=== PATIENT | male | born 1950 | race Caucasian/White ===

== ENCOUNTER 2020-02-04 21:27 | Emergency (ER) | payer MEDICARE, OTHER, SELFPAY ==
[2020-02-04 21:28] VITALS: BP 141/66; PULSE 74; RESP 16; TEMP 37.3; O2SAT 94; BMI 44.6
--- NOTE | 2020-02-04 22:09 | EKG12_ITS ---
Test Reason : SOB Blood Pressure : / mmHG Vent. Rate : 070 BPM Atrial Rate : 070 BPM P-R Int : 174 ms QRS Dur : 092 ms QT Int : 444 ms P-R-T Axes : 033 -03 041 degrees QTc Int : 479 ms Normal sinus rhythm Nonspecific ST abnormality Abnormal ECG Confirmed by DEXTER TRAYLOR, SHANNAN ([id number]), commercial production editor CLOVER GUAJARDO ([id number]) on 02/08/2020 10:21:37 AM Referred By: MIKY Confirmed By:MARIANNA RENTERIA MD
--- NOTE | 2020-02-04 22:12 | ED.VISSUMM ---
- ER Visit Summary Date of Service: 02/04/20 Chief Complaint: Cough and shortness of breath History of Present Illness: The patient is a 69 M who presents with cough and shortness of breath that has been getting worse over the past 5 days. Patient states he occasionally coughs up some sputum. Patient states mostly it is a nonproductive cough. Patient states family members have tested positive for Covid recently. Patient states his breathing is better whenever he leans forward. Patient states nothing makes it worse. Patient admits to a low-grade fever of 100 at home. Patient denies any chills. Patient denies any chest pain. Patient denies any nausea or vomiting. Patient denies any loss of taste or smell. Physical Examination: Vital signs are stable. Patient is afebrile. Patient is in no acute distress. Oral mucosa is pink and moist. Neck is supple. Trachea is midline. There is no JVD noted. Heart was regular rate and rhythm. Lungs are clear but diminished bilaterally. Abdomen is soft. Bowel sounds are normal. There is no tenderness. There is no rebound or guarding noted. Skin is warm dry. Cranial nerves II through XII are intact. There are no focal motor or sensory deficits noted. Extremities are intact. There is no calf tenderness or edema. Test Results: EKG was obtained. On my interpretation, there is normal sinus rhythm with a rate of 70. There are no acute ST or T wave changes. Portable 1 view chest x-ray was obtained. On my interpretation, there are bilateral patchy infiltrates. There is normal cardiac silhouette. Bony thorax is normal. Radiologist also interpreted the x-ray and agrees. CBC shows a mild anemia with a hemoglobin of 12.1 hematocrit 38.4. Comprehensive metabolic profile showed a hypokalemia of 2.9. Troponin was normal. Emergency Department Course and Treatment: Patient was given a dose of oral potassium here. Patient was referred for monoclonal antibody therapy. Patient was instructed to quarantine himself for the next 5 days. Patient was instructed to follow-up with his primary care physician in 3 to 5 days. Patient understood and was agreeable with the plan. All questions were answered. Disposition: Discharge home Impression: 1. COVID-19 pneumonia This note was generated with [employer] software. It may contain incorrect words, spelling, and punctuation that were not noted in review of the chart prior to signing ED Disposition - Plan for ED Patient: Disposition: Home or Assisted Living Diagnosis: Pneumonia due to COVID-19 virus Instructions: Coronavirus Disease 2019 (COVID-19): Overview, ED - COVID Monoclonal AB Infusion ... Referrals: Kenn Soto MD [Primary Care Provider] - 3-5 Days
--- NOTE | 2020-02-04 22:27 | RAD_ITS ---
COUGH, FEVER, SHORTNESS OF BREATH X 1 WK EXAMINATION/TECHNIQUE: XR Chest 1 View: COMPARISON: None FINDINGS: LINES/DEVICES: None. LUNGS: Patchy airspace opacities most marked in the right lung base but also seen within the left lung base No pneumothorax. MEDIASTINUM AND CARDIOVASCULAR STRUCTURES: Heart silhouette is enlarged Central airways and mediastinal contour are unremarkable. BONES AND SOFT TISSUES: Unremarkable. RAD/Chest 1 View (Portable) IMPRESSION: Patchy bilateral airspace opacities as discussed at 2316 Reported and signed by: Mara Patrick DO Electronically Signed: Mara Patrick DO at 23:15 EST Tel , Service support ,
[2020-02-04 22:44] LABS: Absolute Lymphocyte Count 0.84 X10^3/uL (0.83-4.51); Absolute Neutrophil Count 3.4 X10^3/uL (2.0-7.7); Basophil# 0.01 X10^3/uL; Basophil% 0.2 % (0-1); Eosinophil# 0.04 X10^3/uL; Eosinophils% 0.9 % (0-5); Hematocrit 38.4 % (40-54); Hemoglobin 12.1 g/dL (13.0-16.5); Lymphocyte # 0.84 X10^3/ul (4.0); Lymphocyte % 18.5 % (19-41); Mean Corp Hgb Conc 31.5 g/dL (32-36); Mean Corpuscular Hgb 28.5 pg (27.0-32.0); Mean Corpuscular Volume 90.4 fL (80-94); Mean Platelet Vol. 9.9 fl (6.2-12.0); Monocyte# 0.29 X10^3/uL; Monocyte% 6.4 % (0-10); NRBC Flagged by Analyzer 0 % (0-5); Neutrophil # 3.35 X10^3/uL (2.7-7.7); Neutrophil % 73.8 % (47-70); Platelet Count 156 K/mm3 (150-450); RBC Distribution Width CV 13.7 % (11.6-14.6); RBC Distribution Width SD 46.3 fl (35.1-43.9); Red Blood Count 4.25 M/mm3 (4.6-6.2); White Blood Count 4.5 K/mm3 (4.4-11.0)
[2020-02-04 22:53] VITALS: O2SAT 94
[2020-02-04 22:58] LABS: ALB/GLOB Ratio 0.8 RATIO (0.9-2.4); AST(SGOT) 22 U/L (15-37); Alanine Aminotransfer ALT/SGPT 31 U/L (16-61); Alkaline Phosphatase 106 U/L (45-117); Anion Gap 7 (5-15); BUN 20 mg/dL (7-18); BUN/Creat Ratio 19.8 RATIO (10-20); Calcium,Total 8.1 mg/dL (8.5-10.1); Chloride 107 mmol/L (98-107); Creatinine, Serum 1.01 mg/dL (0.70-1.30); EST Glomerular Filtration Rate 78 mL/min (>60); Est Glom Filt Rate - Afr Amer 94 mL/min (>60); Estimated Creatinine Clearance 74.55 ml/min; Globulin 3.9 g/dL (2.2-4.2); Glucose 102 mg/dL (74-106); Potassium 2.9 mmol/L (3.5-5.1); Protein, Total 6.9 g/dL (6.4-8.2); Sodium Level 143 mmol/L (136-145)
[2020-02-04 23:43] VITALS: BP 134/74; PULSE 70; RESP 18; O2SAT 93
== END 2020-02-04 23:45 | disposition home or self-care (01) ==
PROVIDERS: Emergency Provider Emergency Medicine; PCP Family Medicine
DX: U07.1 COVID-19 (principal); J12.89 Other viral pneumonia; D64.9 Anemia, unspecified; E66.9 Obesity, unspecified
CPT/HCPCS: 71045; 80053; 83605; 84484; 85025; 87040; 87426; 93005; 94640; 99285; A4216

== ENCOUNTER 2020-02-05 12:59 | Outpatient (CLI) | payer MEDICARE, OTHER, SELFPAY ==
[2020-02-05 13:15] VITALS: BP 160/61; PULSE 84; RESP 20; TEMP 36.7; O2SAT 96
[2020-02-05] MEDS: 0.9% Saline Lock 10 ML Syringe IV (13:23)
[2020-02-05 13:26] VITALS: BMI 46.0
[2020-02-05 14:09] VITALS: BP 130/66; PULSE 74; RESP 18; TEMP 37.4; O2SAT 97
[2020-02-05 14:40] VITALS: BP 132/63; PULSE 71; RESP 18; TEMP 37.2; O2SAT 98
[2020-02-05 15:39] VITALS: BP 138/63; PULSE 78; RESP 18; TEMP 36.9; O2SAT 95
== END 2020-02-05 15:40 | disposition home or self-care (01) ==
LOC: MS2OUT 13:01 → MS2 13:01
PROVIDERS: PCP Family Medicine; Referring Provider Nurse Practitioner Acute Care; Visit Provider Nurse Practitioner Acute Care
DX: U07.1 COVID-19 (principal)
CPT/HCPCS: 96365; J7040; J7050; M0239; Q0239; A4216

== ENCOUNTER 2020-05-23 13:35 | Outpatient (RCR) | payer MEDICARE, OTHER, SELFPAY | END 2020-07-16 23:59 | LOC: IMMUN 13:35 | PROVIDERS: PCP Family Medicine; Referring Provider Family Medicine; Visit Provider Family Medicine | DX: Z23 Encounter for immunization (principal) | CPT/HCPCS: 0001A; 0002A; 91300 ==

== ENCOUNTER 2022-05-20 10:30 | Outpatient (RCR) | payer MEDICARE, OTHER, SELFPAY ==
--- NOTE | 2022-03-23 09:58 | HP.PTEVAL_ITS ---
Patient's Visit Information CAMERON HIGGINS is a 71 year old M referred to Physical Therapy by Dr. Killian Soto MD with a diagnosis of R hip pain, LBP. Date of Evaluation: 03/23/22 Physical Therapist: JARED Hutchison - Visit Plan Frequency: 2x /Week Duration: 2 Months Plan: 2X/ week for 8 weeks for AT for R hip strength, core stability, endurance, balance and general mobility. Did discuss a rollator with the patient and he was not very interested in that. Give HEP if able to do on his off AT days for simple mat or kitchen sink exercises. - Subjective Pt reports that his B hips are bothering him and the R is worse. He wants to get a replacement and the Dr is not ready to do it and wants him to do water therapy instead. The Dr wants him to do some other therapy, Lifestyle Coaching Program which he has not signed up for yet. Prescribed Fit. Pt has had back and hip pain for years. 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 He has steps at home and alternates with one railing. He knows that he needs to lose weight. He feels that his legs are strong. He is able to sit to stand without using his arms. Pain is zero in sitting in R hip and then he walks and then the R leg gets weak so that it will not support him. He does not walk long distances. He has to stop and make sure he is taking his steps. - Pain R hip pain Pain Intensity (Out of 10): 0 L hip pain Pain Intensity (Out of 10): 0 Back Pain Pain Intensity (Out of 10): 0 Pain Intensity Range: 3 Comment: with walking... he feels like he will give out. - Objective Gait: walks back to the treatment room with small step length and each foot does not pass the other foot. Trunk AROM: flex 100%, Ext 25%, SB L 50%, SB R 75%. LE MMT: R hip flex 11.7 and L hip flex 12.3. R knee ext 23.4 and L 26..3. R knee flex 13.3 and L 14.6. R hip abd 13.9 and L 11.4. -SLUMP test B. Tight HS B. Patellar DTR B 0/3 - Balance/Special Test Scores Lower Extremity Functional Score: 48 - Goals Goal 1:: I HEP Goal Time Frame: 6-8 Weeks Goal 2:: Be able to walk back to EVAL room with 50% less SOB and with his legs not feeling like they will give out on him Goal Time Frame: 6-8 Weeks Goal 3:: Increase LE strength (at time of the eval: LE MMT: R hip flex 11.7 and L hip flex 12.3. R knee ext 23.4 and L 26..3. R knee flex 13.3 and L 14.6. R hip abd 13.9 and L 11.4) Goal Time Frame: 6-8 Weeks - Rehabilitation Potential Rehabilitation Potential: Good - Anticipated Interventions Patient/Client Instruction: Educate patient on: Condition, Plan of Care For the Purpose of:: To decrease pain, To increase ROM, To improve nutrient delivery to tissue, To improve muscle performance and motor function, To improve ability to perform ADL's, To increase tolerance to activity/condition/position, To improve performance and independence with ADL's, To decrease level of supervision to perform tasks, To improve ability of physical actions for home/community/work/leisure, To improve gait and locomotor functions, To improve health of tissue, To decrease soft tissue restriction, To increase flexibility/ROM, To improve endurance, To improve balance, To improve safety with gait Therapeutic Exercise to Include: Strength training, Endurance training, Postural training, Flexibilty training, Gait and locomotor training, Active ROM, Dynamic Lumbar Stabilization For the Purpose of:: To decrease pain, To increase ROM, To improve nutrient delivery to tissue, To improve muscle performance and motor function, To improve ability to perform ADL's, To increase tolerance to activity/condition/position, To improve performance and independence with ADL's, To decrease level of supervision to perform tasks, To improve ability of physical actions for home/community/work/leisure, To improve gait and locomotor functions, To improve health of tissue, To decrease soft tissue restriction, To increase flexibility/ROM, To improve endurance, To improve balance Functional Training to Include: Gait training For the Purpose of:: To improve gait and locomotor functions, To improve safety with gait Thank you for the opportunity to evaluate your patient. For Medicare and Medicare HMO plans, please review the plan of care and approve it. It will need to be FAXED BACK to us at [phone] for Medicare purposes. For Medicare only, by signing this I certify the plan of care. Please let me know if there are questions or concerns regarding this plan of care. Physician Signature: Date:
--- NOTE | 2022-04-20 09:59 | HP.PTREVAL ---
Dr. Killian Soto MD, It has been my pleasure to treat CAMERON HIGGINS over the last 8 visits for R hip pain, LBP. Please see the progress note below for an update on the physical therapy plan of care! Subjective: Pt had some confusion and went back to the pool instead of re check. Pt feels that the water was worth while. The water is helping his pain. He meets with Dr soto on and wants to continue with PT. He is able to do a lot now with soreness but not like the pain that he had. He stretches at home when his back is tight. Objective/Function: R hip flex 12 and L hip flex 13.3. R knee ext 23.4 and L 26..3. R knee flex 15.3 and L 14.8. R hip abd 13.9 and L 11.4...same Plan Plan: continue...2X/ week for 4 weeks in AT and then a recheck. *f/u with new HEP tasks. *Add BWD walking, and rest of DLP tasks next visit. *f/u with pt's request for heel lift with RLE shorter. 2X/ week for 8 weeks for AT for R hip strength, core stability, endurance, balance and general mobility. Did discuss a rollator with the patient and he was not very interested in that. Give HEP if able to do on his off AT days for simple mat or kitchen sink exercises. Balance/Gait/Functional tests - Balance/Special Test Scores Lower Extremity Functional Score: 49 Goals Goal 1:: I HEP Goal Time Frame: 6-8 Weeks Goal 2:: Be able to walk back to [facility] room with 50% less SOB and with his legs not feeling like they will give out on him Goal Time Frame: 6-8 Weeks Goal Progress: Progressing Goal 3:: Increase LE strength (at time of the eval: LE MMT: R hip flex 11.7 and L hip flex 12.3. R knee ext 23.4 and L 26..3. R knee flex 13.3 and L 14.6. R hip abd 13.9 and L 11.4) Goal Time Frame: 6-8 Weeks Goal Progress: Progressing Anticipated Interventions Patient/Client Instruction: Educate patient on: Condition, Plan of Care For the Purpose of:: To decrease pain, To increase ROM, To improve nutrient delivery to tissue, To improve muscle performance and motor function, To improve ability to perform ADL's, To increase tolerance to activity/condition/position, To improve performance and independence with ADL's, To decrease level of supervision to perform tasks, To improve ability of physical actions for home/community/work/leisure, To improve gait and locomotor functions, To improve health of tissue, To decrease soft tissue restriction, To increase flexibility/ROM, To improve endurance, To improve balance, To improve safety with gait Therapeutic Exercise to Include: Strength training, Endurance training, Postural training, Flexibilty training, Gait and locomotor training, Active ROM, Dynamic Lumbar Stabilization For the Purpose of:: To decrease pain, To increase ROM, To improve nutrient delivery to tissue, To improve muscle performance and motor function, To improve ability to perform ADL's, To increase tolerance to activity/condition/position, To improve performance and independence with ADL's, To decrease level of supervision to perform tasks, To improve ability of physical actions for home/community/work/leisure, To improve gait and locomotor functions, To improve health of tissue, To decrease soft tissue restriction, To increase flexibility/ROM, To improve endurance, To improve balance Functional Training to Include: Gait training For the Purpose of:: To improve gait and locomotor functions, To improve safety with gait Please do not hesitate to contact me at [phone] by phone or if you have questions or concerns regarding this new plan of care! Sincerely, JARED Hutchison
--- NOTE | 2022-05-20 11:08 | HP.PTDCSUM ---
It has been my pleasure to treat CAMERON HIGGINS referred by Dr. Killian Soto MD, with the diagnosis of R hip pain, LBP for a total of 14 visit(s). Discharge Date: 05/20/22 Please see the following information for a summary of their discharge status. Subjective: Pt reports that the back is better by a lot. He had a shot in his hip and that has helped. He is walking better. He is ready to move on. R hip pain Pain Intensity (Out of 10): 2 L hip pain Pain Intensity (Out of 10): 2 Back Pain Pain Intensity (Out of 10): 2 % Improvement: 90 Objective/Function: Pt found lunges difficult. R hip flex 17.2 and L hip flex 14.2. R knee ext 24.2 and L 26.1. R knee flex 19.1 and L 16.8 Goal 1:: I HEP Goal Progress: Progressing Goal 2:: Be able to walk back to EVAL room with 50% less SOB and with his legs not feeling like they will give out on him Goal Progress: Goal Met Goal 3:: Increase LE strength (at time of the eval: LE MMT: R hip flex 11.7 and L hip flex 12.3. R knee ext 23.4 and L 26..3. R knee flex 13.3 and L 14.6. R hip abd 13.9 and L 11.4) Goal Progress: Goal Met Plan: DC PT as pt feels much better and has a lot of things he has to do this summer. Discharge Comments: DC PT If there are questions or concerns regarding this patient's physical therapy, please feel free to call me at [phone]. Thank you for the referral of this patient. Sincerely, Anay Colvin, MPT Balance/Gait/Functional tests - Balance/Special Test Scores Lower Extremity Functional Score: 52
== END 2022-05-20 19:00 | disposition home or self-care (01) ==
LOC: PT 10:30
PROVIDERS: PCP Family Medicine; Referring Provider Specialist; Visit Provider Specialist
DX: M25.551 Pain in right hip (principal); M54.59 Other low back pain; R26.89 Other abnormalities of gait and mobility
CPT/HCPCS: 97113; 97161; 97530

== ENCOUNTER → 2024-05-04 | Outpatient (CLI) | payer MEDICARE, OTHER, SELFPAY ==
--- NOTE | 2024-05-04 09:27 | ECHOD_ITS ---
Reason For Study Reason For Study: CAD/ASHD Procedure This was a 2D Doppler, Color Flow transthoracic echocardiogram. Myocardial strain analysis was performed in this exam to aid in the assessment of cardiac function. Exam performed in department. Left Ventricle Normal LV size. Moderate concentric left ventricular hypertrophy. Left ventricular systolic function is normal. The left ventricular ejection fraction is 55 %. Stage 1 diastolic dysfunction. No regional wall motion abnormalities noted. Right Ventricle Normal RV size. Normal systolic function. Atria Normal left atrium. Normal right atrium. Mitral Valve Normal mitral valve. Tricuspid Valve Normal tricuspid valve. Aortic Valve Trisinus/trileaflet aortic valve. Pulmonic Valve Normal pulmonic valve. Great Vessels Normal aortic root. The pulmonary artery is normal size. Inferior vena cava collapse with respiration. Pericardium/Pleural No pericardial effusion. MMode/2D Measurements & Calculations LVIDd: 5.8 cm IVSd: 1.3 cm LVOT diam: 2.1 cm LVIDs: 4.2 cm LVPWd: 1.5 cm LVOT area: 3.5 cm2 FS: 26.9 % Ao root diam: 3.6 cm LAV(MOD-bp): 61.4 ml LVAd ap4: 33.8 cm2 LAV(MOD-bp) Indexed: 24.5 ml/m2 LVLd ap4: 9.2 cm LAV(MOD-sp2): 64.0 ml EDV(MOD-sp4): 110.7 ml LAV(MOD-sp4): 55.0 ml EDV(sp4-el): 105.2 ml LVAs ap4: 23.2 cm2 LVLs ap4: 8.4 cm ESV(MOD-sp4): 59.4 ml ESV(sp4-el): 54.5 ml EF(MOD-sp4): 46.3 % EF(sp4-el): 48.2 % SV(MOD-sp4): 51.3 ml SV(sp4-el): 50.7 ml LA A4 area: 18.4 cm2 SI(MOD-sp4): 20.5 ml/m2 LA dimension(2D): 3.5 cm RA A4 area: 15.2 cm2 Time Measurements MV dec time: 0.20 sec Doppler Measurements & Calculations MV E max nathen: 46.2 cm/sec Lat Peak E' Nathen: 6.1 cm/sec Med Peak E' Nathen: 5.1 cm/sec MV A max nathen: 78.1 cm/sec E/E' lat: 7.5 E/E' med: 9.1 MV E/A: 0.59 MV V2 max: 101.3 cm/sec Ao V2 max: 153.6 cm/sec MV max P.1 mmHg MV dec slope: 233.9 cm/sec2 Ao max P.4 mmHg MV V2 mean: 58.1 cm/sec Ao V2 mean: 108.7 cm/sec MV mean P.6 mmHg Ao mean P.3 mmHg MV V2 VTI: 24.6 cm Ao V2 VTI: 32.0 cm AV (velocity ratio): 0.75 MVA(VTI): 3.4 cm2 MERY(I,D): 2.6 cm2 MERY(V,D): 2.2 cm2 LV V1 max: 98.7 cm/sec SV(LVOT): 83.7 ml PA V2 max: 134.2 cm/sec LV V1 max P.9 mmHg PA V2 mean: 85.7 cm/sec LV V1 mean P.1 mmHg LV V1 mean: 69.0 cm/sec LV V1 VTI: 24.0 cm ECHO/Echo Complete Interpretation Summary Normal LV size. Left ventricular systolic function is normal. The left ventricular ejection fraction is 55 %. Moderate concentric left ventricular hypertrophy. Stage 1 diastolic dysfunction. The global longitudinal strain is moderately abnormal. The global longitudinal strain = -13.2% (abnormal). Ordering Physician: Cas Olmedo Referring Physician: Cas Olmedo Performed By: Linda Taveras RCS
[2024-05-04 11:22] LABS: Absolute Lymphocyte Count 1.13 X10^3/uL (0.83-4.51); Absolute Neutrophil Count 4.3 X10^3/uL (2.0-7.7); Basophil# 0.05 X10^3/uL; Basophil% 0.8 % (0-1); Eosinophils% 1.6 % (0-5); Hematocrit 42.2 % (40-54); Hemoglobin 14.1 g/dL (13.0-16.5); Lymphocyte # 1.13 X10^3/ul (0.83-4.51); Lymphocyte % 18.1 % (19-41); Mean Corp Hgb Conc 33.4 g/dL (32-36); Mean Corpuscular Volume 92.7 fL (80-94); Mean Platelet Vol. 9.8 fl (6.2-12.0); Monocyte# 0.59 X10^3/uL; Monocyte% 9.5 % (0-10); NRBC Flagged by Analyzer 0 % (0-5); Neutrophil # 4.32 X10^3/uL (2.7-7.7); Neutrophil % 69.4 % (47-70); Platelet Count 192 K/mm3 (150-450); RBC Distribution Width CV 13.5 % (11.6-14.6); RBC Distribution Width SD 46.1 fl (35.1-43.9); Red Blood Count 4.55 M/mm3 (4.6-6.2); White Blood Count 6.2 K/mm3 (4.4-11.0)
[2024-05-04 12:37] LABS: Anion Gap 11 (5-15); BUN 16 mg/dL (4-19); BUN/Creat Ratio 15.2 RATIO (10-20); Carbon Dioxide 29.3 mmol/L (21.0-32.0); Chloride 103 mmol/L (98-108); Creatinine, Serum 1.02 mg/dL (0.70-1.20); EST Glomerular Filtration Rate 78 (>60); Glucose 106 mg/dL (70-99); Potassium 3.3 mmol/L (3.3-5.1); Sodium Level 143 mmol/L (133-145)
== END | disposition home or self-care (01) ==
PROVIDERS: PCP Family Medicine; Referring Provider Internal Medicine Cardiovascular Disease; Visit Provider Internal Medicine Cardiovascular Disease
DX: I25.10 Atherosclerotic heart disease of native coronary artery without angina pectoris (principal); E66.01 Morbid (severe) obesity due to excess calories; I10 Essential (primary) hypertension; E78.5 Hyperlipidemia, unspecified; R42 Dizziness and giddiness
CPT/HCPCS: 36415; 80048; 85025; 93306

== ENCOUNTER 2024-05-08 08:42 | Day surgery (SDC) | payer MEDICARE, OTHER, SELFPAY ==
[2024-05-05 08:46] VITALS: BMI 42.5
--- NOTE | 2024-05-08 11:23 | CL.D_ITS ---
Patient Name: CAMERON HIGGINS Study Date: 05/08/2024 Performing: Cas Olmedo MD Ht: 71 inches 180.34 cm : 1950 Wt: 304.5 lbs 138.12 kg Age: 73 Gender: male BSA: 2.52 PROCEDURE(S) PERFORMED [id number])LHC/COR/LV CLINICAL PROFILE AND INDICATIONS Indications: Suspected CAD Heart Failure: None Stress/Imaging Coronary Calcium Score: Yes Calcium Score: 6000Calcium Score: 6000 CAD Presentations: No Sxs, no angina. CONCLUSIONS Severe three-vessel calcification and severe two-vessel disease present with preserved ejection fraction RECOMMENDATIONS Will recommend coronary artery bypass graft surgery. DESCRIPTION OF PROCEDURE The patient arrived to the procedure lab. The risks and benefits of the procedure as well as a full description of our services here and current unavailability of surgical backup were fully explained to the patient and/or their significant other prior to the catheterization. The Timeout was completed, verifying the correct patient and procedure. The patient's procedural site was prepped and draped in the usual fashion. Local anesthetic was given subcutaneously to left radial region with Lidocaine 2%. Using a modified Seldinger technique, arterial access was obtained via the right radial artery, a 6Fr sheath was inserted. Right Coronary Artery selective angiography was then performed in multiple views using a 5 Fr. JR 5 catheter. Left Coronary Artery selective angiography was performed in multiple views using a 6 Fr. JL4 catheter.The arterial sheath was pulled and a TR Band was applied for hemostasis CORONARY ANGIOGRAPHY DOMINANCE: Right Dominant LEFT HEART ASSESSMENT Left Ventricular Ejection Fraction: by Echo 55 % Normal LV wall motion Normal Left Ventricular systolic function LEFT MAIN: Moderate calcification, Mild luminal irregularities less than 30% LEFT ANTERIOR DESCENDING ARTERY: This vessel is totally occluded in the proximal segment after a first diagonal branch which has moderately severe disease. Collateral filling from right to left of the left anterior descending artery is seen. CIRCUMFLEX ARTERY: Moderate luminal irregularities up to 50% RIGHT CORONARY ARTERY: Dominant calcified vessel with mid segment 95% eccentric occlusion. Mild to moderate distal luminal irregularities present. AORTIC ROOT: Dilated COMPLICATIONS No Complications PROCEDURE MEDICATIONS Versed 1 mg IV Fentanyl 50 mcg IV Versed 1 mg IV Fentanyl 25 mcg IV Oxygen: 2 L/min via nasal cannula IV Bolus: 100 with 10mEq kcl ml total 05/08/2024 09:58:49 SUMMARY OF HEMODYNAMIC DATA Time AIR REST ECG 09:01:15 AO 186/91 (128) SA 10:33:37 Signed By Cas Olmedo MD On 05/08/2024 11:23:00 Cas Olmedo MD
== END 2024-05-08 12:50 | disposition home or self-care (01) ==
PROVIDERS: PCP Family Medicine; Referring Provider Internal Medicine Cardiovascular Disease; Visit Provider Internal Medicine Cardiovascular Disease
DX: I25.10 Atherosclerotic heart disease of native coronary artery without angina pectoris (principal); E66.01 Morbid (severe) obesity due to excess calories; I10 Essential (primary) hypertension; R06.02 Shortness of breath; E78.5 Hyperlipidemia, unspecified; R60.0 Localized edema; R93.1 Abnormal findings on diagnostic imaging of heart and coronary circulation; Z79.82 Long term (current) use of aspirin; Z79.899 Other long term (current) drug therapy; Z85.46 Personal history of malignant neoplasm of prostate; Z90.79 Acquired absence of other genital organ(s)
CPT/HCPCS: 93454; 99152; 99153; Q9967; C1769; C1894

== ENCOUNTER 2024-05-25 14:57 | Inpatient (IN) | payer MEDICARE, OTHER, SELFPAY ==
[2024-05-25 15:36] VITALS: BP 155/84; PULSE 78; RESP 20; TEMP 36.6; O2SAT 98; BMI 44.9
[2024-05-25 15:40] VITALS: RESP 20; O2SAT 98
[2024-05-25 16:11] VITALS: BP 122/66; BP 147/78; BP 147/80; PULSE 76; PULSE 84; PULSE 85
--- NOTE | 2024-05-25 16:32 | PCM.HP.STD ---
[facility] - General General Date of Admission: 05/25/24 Date of Service: 05/25/24 Chief Complaint: debility due to CABG/CAD. HPI Narrative CAMERON HIGGINS, is a 73 YO M with a PMH of HTN, prostate CA (S/P prostatectomy), HTN, HLD, CAD, osteoarthritis, prediabetes (recent hemoglobin A1c was 6%), insomnia and morbid obesity. He underwent a cardiac cath by Dr. Olmedo on 05/08/24 for a markedly elevated calcium score. The catheterization showed severe triple-vessel calcification and severe two-vessel coronary artery disease with a preserved ejection fraction. The left anterior descending was totally occluded in the proximal segment after first diagonal branch which had moderately severe disease. The left main had mild luminal irregularities less than 30%. The circumflex artery had luminal irregularities with up to 50% stenosis and the RCA had a 95% mid segment occlusion. Echocardiogram showed moderate concentric left ventricular hypertrophy with normal left ventricular systolic function. There was stage I diastolic dysfunction with no regional wall motion abnormalities. The atria were of normal size and the right ventricle was normal with normal systolic function. There was no significant valvular heart disease. He was referred to cardiothoracic surgery. On 05/16/2024 he had a CABG x 3 vessels with BELL to LAD, saphenous vein graft to the diagonal and saphenous vein graft to PDA. He also had an ascending aorta replacement with a 30 mm dacryon woven graft. Postop complications included delirium and acute blood loss anemia. He was transfused with 1 unit of packed red blood cells for hemoglobin of 6.9 and it came up to 7.5. He also experienced acute renal failure with creatinine peaking at 1.61. He had a [place] catheter while at [facility]. He also had atrial fibrillation postoperatively which resolved prior to discharge. On report from the previous hospital nursing was told he sundown's. He was transferred to the acute inpatient rehab unit at [facility] on 05/25/2024 for 3 hours of therapy daily to restore function/independence at or near his level prior to the surgery. He was living alone prior to surgery. Using a cane for ambulation at times. Independent with ADL's. Family tells me that he was getting confused at times even prior to surgery. He has trouble sleeping at night. Naps during the day. Falls asleep watching TV and can fall asleep riding in a car. Denies restless leg. He has been told he snores. 4 years ago and no one has ever told him that he stops breathing when sleeping. Has never had a sleep study. Has memory loss. 1. Do you snore loudly? Y 2. Do you often feel tired, fatigued or sleepy during the day? Y 3. Has anyone ever observed you stop breathing during sleep? N 4. Do you have (or are you being treated for) HTN? Y BMI 45 AGE 73 Neck circumference 44 cm Gender M Total 6 wt prior to CABG 304......now 313. [facility] Medical History (Updated 05/26/24 @ 14:[address] Alcye Whelan, DO) Elevated coronary artery calcium score Osteoarthritis History of prostate cancer Essential (primary) hypertension Hyperlipidemia CAD (coronary artery disease) Obesity, morbid, BMI 40.0-49.9 Home Medications ?Medication ?Instructions ?Recorded ?Last Taken ?Type aspirin 81 mg tablet,delayed 81 mg PO DAILY heart health 05/02/24 05/25/24 History release (Adult Aspirin Regimen) atorvastatin 40 mg tablet 80 mg PO QHS cholesterol 05/02/24 05/24/24 History multivitamin 1 tab PO QDAY supplement 05/02/24 Unknown History doxazosin 8 mg tablet 8 mg PO BID sleep 05/05/24 Unknown History Held on 05/25/24. Instructions: Ordered acetaminophen 500 mg capsule 1,000 mg PO Q8H pain 05/25/24 05/25/24 History amiodarone 400 mg tablet 400 mg PO BID BP 05/25/24 05/25/24 History amlodipine 10 mg tablet 5 mg PO QDAY BP 05/25/24 05/25/24 History ezetimibe 10 mg tablet (Zetia) 10 mg PO QHS cholesterol 05/25/24 05/24/24 History furosemide 40 mg tablet (Lasix) 40 mg PO DAILY Fluid retention 05/25/24 05/25/24 History metoprolol succinate 50 mg 50 mg PO BID BP 05/25/24 05/25/24 History tablet,extended release 24 hr (Toprol XL) oxycodone 5 mg tablet 5 mg PO Q6H PRN pain 7-10 05/25/24 Unknown History Allergy/AdvReac Type Severity Reaction Status Date / Time No Known Allergies Allergy Verified 05/04/24 08:37 Family History Other CVA (cerebral vascular accident) Surgical History (Updated 05/26/24 @ 13:[address] Alyce Whelan DO) History of aortic aneurysm repair S/P CABG x 2 Hx of prostatectomy Hx of appendectomy History of hip replacement (~03/2023) Social History Smoking Status: Never smoker Vital Signs Vital Signs Vital Signs: 05/25/24 15:36 05/25/24 15:40 05/25/24 16:11 Temperature 97.8 F Temperature Source Oral Pulse Rate 78 Pulse Rate [Lying] 76 Pulse Rate [Sitting (for 1 minute prior to obtaining)] 85 Pulse Rate [Standing (for 1 minute prior to obtaining)] 84 Respiratory Rate 20 H 20 H Respiratory Effort Short of Breath Labored Respiratory Depth Normal Respiratory Pattern Normal Blood Pressure 155/84 H Blood Pressure [Lying] 147/78 H Blood Pressure [Sitting (for 1 minute prior to obtaining)] 147/80 H Blood Pressure [Standing (for 1 minute prior to obtaining)] 122/66 H Blood Pressure Mean 107 Blood Pressure Mean [Lying] 101 Blood Pressure Mean [Sitting (for 1 minute prior to obtaining)] 102 Blood Pressure Mean [Standing (for 1 minute prior to obtaining)] 84 Blood Pressure Source Monitor Blood Pressure Position Semi-Fowlers Blood Pressure Location Left Arm Pulse Ox 98 98 Oxygen Delivery Method Nasal Cannula Nasal Cannula Oxygen Flow Rate (L/min) 1 1 Weight Weight: 313 lb 4.8 oz Body Mass Index (BMI) 44.9 Physical Exam Const no apparent distress Constitutional Narrative: Drowsy. Speech is a little slurred. Has been getting confused in the evenings per family. Was delirious post op and required sedation. General Appearance: cooperative Nutritional Appearance: morbidly obese HEENT head/scalp atraumatic HEENT Narrative: He has a small hematoma of the R neck and ecchymosis. Eyes PERRL, EOMs intact bilaterally, conjunctivae normal and no scleral icterus Eyes Narrative: No discharge from the eyes Neck supple and no carotid bruits General: trachea midline Chest Chest: symmetrical chest wall rise Resp Resp Narrative: Tachypneic. Mild conversational dyspnea, use of accessory muscles. Breath sounds are diminished throughout but much more diminished in the lower lung galvin. He has egophony in the right base. No wheezing and no crackles. He is complaining of a cough and is having trouble expectorating his sputum. Effort and Inspection: symmetric chest movement Cardio regular rate, regular rhythm, S1 normal heart sound, S2 normal heart sound, no murmurs, no rub and no gallops Cardio Narrative: Distant heart sounds. No ectopy GI GI Narrative: obese. Increased tympany. No guarding with palpation. BS's present. Having regular BM's. Last BM was yesterday. No masses. Soft. Extremity Extremity Narrative: pitting edema of both LE's......up to the posterior thighs. Ecchymosis of the Left groin and the left medial thigh. Small laceration to the medial upper calf on the left. Skin General Skin Exam: no breakdown Neuro CN's II-XII intact bilaterally Neuro Narrative: Drowsy, seems somewhat confused. Family confirms this. Has been confused at home even prior to the recent surgery. Psych cooperative; Negative for denies hallucinations Appearance: appropriate Attitude: calm Activity / Motor Behavior: appropriate eye contact Results Lab / Micro Data 05/26/24 06:20 05/26/24 06:20 Assessment & Plan Assessment/Plan (1) Debility: (2) S/P CABG x 2: (3) History of aortic aneurysm repair: (4) Acute respiratory failure with hypoxia: (5) Orthostatic hypotension: (6) Essential (primary) hypertension: (7) Hyperlipidemia: QUALIFIERS: Hyperlipidemia type: unspecified Qualified Code(s): E78.5 - Hyperlipidemia, unspecified (8) CAD (coronary artery disease): QUALIFIERS: Coronary Disease-Associated Artery/Lesion type: [place] artery [place] vs. transplanted heart: [place] heart Associated angina: without angina Qualified Code(s): I25.10 - Atherosclerotic heart disease of [place] coronary artery without angina pectoris (9) Obesity, morbid, BMI 40.0-49.9: (10) Acute blood loss as cause of postoperative anemia: (11) Sleep-disordered breathing: PLAN: Plan PLAN PT for gait stability OT for ADL's ST for evaluation-for cognition Analgesics as needed Bowel protocol Fall precautions Assess for Anxiety/Depression GI prophylaxis -not necessary at this time. No history of peptic ulcer disease, no nausea, no vomiting, no epigastric pain. Denies reflux/heartburn. DVT prophylaxis with heparin 5000 units SQ every 12 hours Follow up with PCP, cardiology, cardiothoracic surgery following DC from [facility] Rehab AM lab including CMP, CBC, Mag and Phos Doxepin 10 mg p.o. nightly for insomnia PA and lateral chest x-ray tonight Will do an overnight trending pulse ox if we are able to get him off oxygen supplementation. His STOP-BANG score is 6. Recommend a formal sleep study. TSH and B12 to rule out treatable causes of memory loss -suspect his problems with memory and confusion may be related to untreated sleep apnea with sleep deprivation chronically Check a hemoglobin A1c Yunior 1 packet twice daily to promote wound healing. Forest tells me that he took Wegovy and lost 80 pounds. He had severe constipation with Wegovy. Insurance did not cover. He wants to lose weight so that he can have a hip replacement with Dr. Kenn Soto. Not currently on Wegovy but would take it again if his insurance will pay for it now that he has been diagnosed with coronary disease and had CABG. Charges/Coding Visit Charges Inpatient E&M: 78531 Init Hosp L3
[2024-05-25 17:02] LABS: Bedside Glucose 104 mg/dL (74-106)
--- NOTE | 2024-05-25 17:40 | EKG12_ITS ---
Test Reason : DYSRHYTHMIA Blood Pressure : */* mmHG Vent. Rate : 85 BPM Atrial Rate : 85 BPM P-R Int : 196 ms QRS Dur : 92 ms QT Int : 400 ms P-R-T Axes : 18 27 87 degrees QTcB Int : 476 ms Sinus rhythm with marked sinus arrhythmia Nonspecific ST and T wave abnormality Abnormal ECG When compared with ECG of 04-Feb-2020 22:24, No significant change was found Confirmed by JULI TRAYLOR, CICI ([id number]), editor publications CLOVER GUAJARDO ([id number]) on 05/29/2024 10:38:26 AM Referred By: Confirmed By: CICI BUSTOS MD
--- NOTE | 2024-05-25 18:06 | RAD_ITS ---
PROCEDURE: CHEST PA AND LATERAL 05/25/2024 REASON FOR EXAM: COUGH TECHNIQUE: Frontal and lateral views of the chest. FINDINGS: Hardware: Sternotomy wires are present. Heart: Heart size is moderately enlarged. Mediastinum: The thoracic aorta is tortuous and calcified. Lungs: Small bilateral pleural effusions with bibasilar atelectasis. Bones: The bones are unremarkable. RAD/Chest PA and Lateral IMPRESSION: Small bilateral pleural effusions with bibasilar atelectasis. Reading Location: [id number]
[2024-05-25 22:00] VITALS: RESP 18
[2024-05-25] MEDS: Ezetimibe 10 MG Tablet PO (22:12)
[2024-05-25] MEDS: Senna/Docusate Sodium 1 Tablet 2 TABLET PO (22:13)
[2024-05-25] MEDS: Acetaminophen 500 MG Tablet 1000 MG PO (22:13)
[2024-05-25] MEDS: Amiodarone 200 MG Tablet 400 MG PO (22:13)
[2024-05-25] MEDS: Heparin Injection (Vial) 5,000 UNIT/ML VIAL 5000 UNIT SC (22:13)
[2024-05-25] MEDS: Doxepin Hydrochloride 10 MG Capsule PO (22:13)
[2024-05-25] MEDS: Atorvastatin Calcium 80 MG Tablet PO (22:13)
[2024-05-25 22:18] VITALS: BP 164/83; PULSE 78; RESP 18; TEMP 36.8; O2SAT 93
[2024-05-25 22:19] VITALS: PULSE 78
[2024-05-25] MEDS: Metoprolol(XL)Succ 50 MG Tablet PO (22:19)
[2024-05-25 23:07] LABS: Bedside Glucose 109 mg/dL (74-106)
[2024-05-26 05:50] VITALS: BP 135/90; PULSE 107; RESP 18; TEMP 36.3; O2SAT 94; BMI 44.6
[2024-05-26] MEDS: Acetaminophen 500 MG Tablet 1000 MG PO ×3 (06:10→21:12)
[2024-05-26 06:41] LABS: Absolute Lymphocyte Count 1.17 X10^3/uL (0.83-4.51); Absolute Neutrophil Count 8.2 X10^3/uL (2.0-7.7); Basophil# 0.05 X10^3/uL; Basophil% 0.5 % (0-1); Eosinophil# 0.21 X10^3/uL; Hematocrit 29.4 % (40-54); Hemoglobin 9.3 g/dL (13.0-16.5); Lymphocyte # 1.17 X10^3/ul (0.83-4.51); Lymphocyte % 11.4 % (19-41); Mean Corp Hgb Conc 31.6 g/dL (32-36); Mean Corpuscular Volume 94.8 fL (80-94); Mean Platelet Vol. 8.8 fl (6.2-12.0); Monocyte# 0.62 X10^3/uL; NRBC Flagged by Analyzer 0 % (0-5); Neutrophil # 8.16 X10^3/uL (2.7-7.7); Neutrophil % 79.3 % (47-70); Platelet Count 418 K/mm3 (150-450); RBC Distribution Width SD 51.5 fl (35.1-43.9); White Blood Count 10.3 K/mm3 (4.4-11.0)
[2024-05-26 07:10] LABS: ALB/GLOB Ratio 1.1 RATIO (0.9-2.4); AST(SGOT) 55 U/L (<=37); Alanine Aminotransfer ALT/SGPT 65 U/L (<=46); Albumin, Serum 3.2 g/dL (3.4-4.8); Alkaline Phosphatase 89 U/L (40-129); Anion Gap 10 (5-15); BUN 27 mg/dL (4-19); Calcium,Total 8.9 mg/dL (7.6-11.0); Carbon Dioxide 26.3 mmol/L (21.0-32.0); Chloride 106 mmol/L (98-108); Creatinine, Serum 1.28 mg/dL (0.70-1.20); EST Glomerular Filtration Rate 59 (>60); Estimated Creatinine Clearance 74.02 ml/min (50-250); Glucose 112 mg/dL (70-99); Magnesium 2.5 mg/dL (1.5-2.2); Phosphorus 3.4 mg/dL (2.7-4.5); Potassium 3.8 mmol/L (3.3-5.1); Protein, Total 6.2 g/dL (5.9-8.4); Sodium Level 142 mmol/L (133-145); Total Bilirubin 0.67 mg/dL (0.00-1.30)
[2024-05-26 07:28] LABS: Bedside Glucose 103 mg/dL (74-106)
[2024-05-26 08:19] VITALS: BP 134/91; PULSE 106
[2024-05-26] MEDS: Metoprolol(XL)Succ 50 MG Tablet PO ×2 (08:19→21:11)
[2024-05-26] MEDS: Amiodarone 200 MG Tablet 400 MG PO ×2 (08:20→21:10)
[2024-05-26] MEDS: amLODIPine 5 MG Tablet PO (08:20)
[2024-05-26] MEDS: Furosemide 40 MG Tablet PO (08:20)
[2024-05-26] MEDS: Senna/Docusate Sodium 1 Tablet 2 TABLET PO ×2 (08:20→21:11)
[2024-05-26] MEDS: Aspirin E.C. 81 MG Tablet PO (08:20)
[2024-05-26] MEDS: Multivitamins,Therapeutic Tablet 1 TABLET PO (08:20)
[2024-05-26] MEDS: Heparin Injection (Vial) 5,000 UNIT/ML VIAL 5000 UNIT SC (08:21)
[2024-05-26 09:15] VITALS: RESP 18
[2024-05-26 11:33] LABS: Bedside Glucose 100 mg/dL (74-106)
--- NOTE | 2024-05-26 14:10 | CT_ITS ---
PROCEDURE: CTA CHEST W/WO CONTRAST 05/26/2024 REASON FOR EXAM: HYPOXEMIA/COUGH/RECENT CABG/ABD PA AND LAT TECHNIQUE: CTA axial imaging of the chest with intravenous contrast. Coronal and Sagittal reconstruction series were provided. 3D, 3D post processing, 3D reconstructions, Maximum intensity projection (MIPs) Volume rendering and Shaded surface rendering was provided. PATIENT PREPARATION: Per protocol One or more dose reduction techniques were used (e.g., Automated exposure control, adjustment of the mA and/or kV according to patient size, use of iterative reconstruction technique). CONTRAST: Isovue 3 7 VOLUME: 100 mL Gauge IV RADIATION DOSE SUMMARY: CTDlvol: 21 mGy DLP: 628.9 mGycm COMPARISON: Comparison is made with prior chest radiograph dated May 26, 1999 25. FINDINGS: Hardware: Prior CABG. Lymph nodes: Small benign-appearing mediastinal lymph nodes. Heart: Cardiomegaly. Prior CABG. Moderate-sized pericardial effusion. Coronary artery calcification. Thoracic Aorta: No thoracic aortic aneurysm or dissection. Atherosclerotic changes. Pulmonary Vessels: No large central pulmonary emboli are identified. Contrast timing is suboptimal for evaluation of more distal branches. Most Proximal Level of Embolus (if embolus present): Lungs and Airways: Moderate degree of bilateral pleural effusions with bibasilar compressive atelectasis. Upper Abdomen: Unremarkable Bones: Degenerative changes of the thoracic spine. CT/CTA Chest W/WO Contrast IMPRESSION: Bilateral pleural effusions with bibasilar dependent atelectasis. No evidence of pulmonary embolism. Cardiomegaly. Status post CABG. Moderate-sized pericardial effusion. Reading Location: [id number]
--- NOTE | 2024-05-26 14:15 | PN_ITS ---
Subjective Subjective Afebrile VSS - Maintaining appropriate oxygen saturation on RA Oral intake - FOOD good FLUIDS fair. He has been incontinent of urine so intake and output are not accurate. Discussed with nursing -confused last night. Tried to get out of bed by himself. Incontinent of urine and sitting off alarms. Reviewed the THERAPY notes Medication list reviewed. I reviewed the chest x-ray done last night. Appears to have bilateral pleural effusions. No significant pulmonary vascular congestion. He has egophony in the right base and the cough with a mildly elevated white blood cell count and left shift. He is short of breath and hypoxic with further desaturation with any exertion. He is tachypneic with conversational dyspnea today. Denies chest pain. Denies lightheadedness to me today. Denies nausea/vomiting/abdominal pain/dysuria/calf pain. He tells me he slept well last night with the doxepin 10 mg. Prashant wraps are in place and the edema is better controlled today. All lab from this morning was personally reviewed. AST and ALT are mildly elevated at 55 and 65 respectively but the alk phos and bilirubin are normal. Phos and mag are normal. BUN is 27 with a creatinine of 1.28. GFR is 59. Creatinine prior to surgery was 1.02. He had acute renal failure while at [facility] but this is improving. Sodium is 142 and the potassium is 3.8. Hemoglobin is 9.3 and platelets are normal. He did receive transfusion at [facility] postoperatively. White blood cell count is 10.3 which is high normal and he has 79% neutrophils. Objective Data Objective Data Vital Signs: Vital Signs Temp Pulse Resp BP Pulse Ox O2 Del Method O2 Flow Rate 97.4 F L 106 H 18 134/91 H 94 Nasal Cannula 2 05/26/24 05:50 05/26/24 08:19 05/26/24 09:15 05/26/24 08:19 05/26/24 05:50 05/26/24 09:15 05/26/24 11:07 Oxygen Flow Rate (L/min) 2 Oxygen Delivery Method Nasal Cannula Weight: 311 lb 8.211 oz Body Mass Index (BMI) 44.6 Intake & Output: Intake and Output for Last 24 Hours 05/24/24 05/25/24 05/26/24 23:59 23:59 23:59 Intake Total 590 / 590 340 / 340 Balance 590 / 590 340 / 340 Lab / Micro Data 05/26/24 06:20 05/26/24 06:20 Labs: Laboratory Results - last 24 hr 05/25/24 16:38: POC Glucose 104 05/25/24 22:25: POC Glucose 109 H 05/26/24 06:00: POC Glucose 103 05/26/24 06:20: WBC 10.3, RBC 3.10 L, Hgb 9.3 L, Hct 29.4 L, MCV 94.8 H, MCH 30.0, MCHC 31.6 L, RDW Std Deviation 51.5 H, RDW Coeff of Bart 15.0 H, Plt Count 418, MPV 8.8, Immature Gran % (Auto) 0.800, Neut % (Auto) 79.3 H, Lymph % (Auto) 11.4 L, [place] % (Auto) 6.0, Eos % (Auto) 2.0, Baso % (Auto) 0.5, Absolute Neuts (auto) 8.2 H, Absolute Lymphs (auto) 1.17, Nucleated RBC % 0, Sodium 142, Potassium 3.8, Chloride 106, Carbon Dioxide 26.3, Anion Gap 10, BUN 27 H, C reatinine 1.28 H, Estim Creat Clear Calc 74.02, Est GFR (MDRD) Non-Af 59 L, B UN/Creatinine Ratio 21.0 H, Glucose 112 H, Calcium 8.9, Phosphorus 3.4, M agnesium 2.5 H, Total Bilirubin 0.67, AST 55 H, ALT 65 H, Alkaline Phosphatase 89, Total Protein 6.2, Albumin 3.2 L, Globulin 3.0, Albumin/Globulin Ratio 1.1 05/26/24 11:07: POC Glucose 100 Radiography Diagnostic Testing: Radiology Impression Chest X-Ray 05/25/24 18:06 IMPRESSION: Small bilateral pleural effusions with bibasilar atelectasis. Reading Location: [id number] Physical Exam Const alert and oriented x3 Constitutional Narrative: He was drowsy last night when I spoke to him but he is much more alert today. He has been cooperative with therapy. Resp Resp Narrative: No crackles. He has diminished breath sounds throughout but especially in the both bases. There is egophony in the right base. He coughs with deep breathing. Rare expiratory wheeze. He has conversational dyspnea today. Effort and Inspection: tachypneic and uses accessory muscles Cardio regular rate, regular rhythm, no murmurs, no rub and no gallops Cardio Narrative: No ectopy GI normal to inspection, nondistended, normoactive bowel sounds, soft to palpation and non-tender GI Narrative: No guarding with palpation Extremity no calf tenderness Extremity Narrative: Edema is better today than last night. He is in bilateral Prashant wrap's and feels comfortable. Skin Rashes: no rashes Assessment & Plan Assessment/Plan (1) Debility: (2) S/P CABG x 2: (3) History of aortic aneurysm repair: (4) Acute respiratory failure with hypoxia: (5) Orthostatic hypotension: (6) Essential (primary) hypertension: (7) Hyperlipidemia: QUALIFIERS: Hyperlipidemia type: unspecified Qualified Code(s): E 78.5 - Hyperlipidemia, unspecified (8) CAD (coronary artery disease): QUALIFIERS: Coronary Disease-Associated Artery/Lesion type: [place] artery [place] vs. transplanted heart: [place] heart Associated angina: without angina Qualified Code(s): I25.10 - Atherosclerotic heart disease of [place] coronary artery without angina pectoris (9) Obesity, morbid, BMI 40.0-49.9: (10) Acute blood loss as cause of postoperative anemia: (11) Sleep-disordered breathing: PLAN: Plan 1. Continue therapy 2. Unclear to me what is going on in the bases of his lungs whether its bilateral effusions with compressive atelectasis or does he have pneumonia. He has been on heparin 5000 units SQ every 12 hours for DVT prophylaxis. This is likely not enough for patient with class III obesity. Per the product circular in patients with obesity 7500 units every 8 hours. If Lovenox is used then the dose is 40 mg BID. Will get a CT of the chest with and without contrast. Discontinue heparin and use Lovenox 40 mg subcu every 12 hours. Charges/Coding Visit Charges Inpatient E&M: 78986 Subs Hosp L2
--- NOTE | 2024-05-26 14:15 | REHABEVAL_ITS ---
Admission Information Primary Diagnosis:: Debility post CABG/aortic aneurysm repair Status Changes from Prescreening?: No changes Identified Actual Problem List:: Skin Intergrity, Pain, ALteration in Cmfrt, Cognitve Impr/Memory Loss, Bladder Incontinence, Alteration in Sleep, Mobility Impaired, Self Care Deficit, BP, Hypertension, Alteration/ Air Exchange and Alteration- Leisure Activ. Potential Problem List:: DVT, Bleeding, Infection, UTI, Aspiration, Falls, Skin Integrity and Depression Risk of Complications DVT: LMWH (Due to class III morbid obesity will use Lovenox 40 mg subcu every 12 hours) and - (Prashant wrap's to the bilateral lower extremities for control of edema) Bleeding: Monitor Lab Values, Nursing to Teach Precautions for anti-coagulation therapy., Wound, if applicable, to be assessed every shift. and Stroke patients assessed for lethargy or change in status. Infection: Clinical Staff to Monitor for S/S of infection: and S/S of infection include fever, redness, warmth, etc. Urinary Tract Infection: Monitor for frequency, burning, discomfort, or incontinence. and Nursing will obtain urine sample for urinalysis and C&S when ordered. Aspiration: Clinical staff will monitor for coughing, drooling, congestion., Speech will evaluate swallowing and dsyphasia. and Nursing will monitor patient swallowing during meals. Falls: Patient will be evaluated for Fall Precautions and Patient will be placed on Fall Precautions as indicated per protocol. Skin Breakdown: Nursing will assess skin daily using assessment tool. and Nursing will place on Skin Breakdown Precautions as indicated. Pain: Clinical staff will assess patient's pain level per protocol., Medications will be given, if needed, and the pain level reassessed. and Other methods: Massage, distraction, decrease stimulus, etc. used PRN. Plan of Care Patient requires physician specializing in physical medicine and rehab oversight to provide close medical supervision of rehab issues including: Pain Management, Sleep Problems, Bowel and Bladder, Medical and co-morbidity Management, DVT prophylaxis, Rehabilitation Leadership and Coordination of treatment team Patient needs Physical Therapy: For a minimum of 1 hour and At least 5 out of 7 days Patient needs Physical Therapy to improve:: Mobility, Strengthening, Transfers, Stretching, ROM, Endurance, Stairs, Gait and Balance Patient needs Occupational Therapy: For a minimum of 1 hour and At least 5 out of 7 days Patient needs Occupational Therapy to improve ADL's incl.: Eating, Grooming, Bathing, Dressing, Toileting, Toilet transfers, Community Reintegration, Higher functioning activities, Household tasks, Adaptive Equipment, Splinting and Other activities as determined Patient requires speech therapy: For a minimum of 1 hour and At least 5 out of 7 days Patient requires speech therapy for: Swallowing, Cognition, Language Skills and Compensatory Strategies Patient requires 24/ Rehabilitation Nursing for: Pain Issues, Identifying and preventing risk factors, Monitoring and reporting current medical conditions, Assisting with ambulation, transfer, and all ADL's, Teaching patients about disease process and medications, Family teaching, Providing safe environment, Bowel and Bladder Issues, Skin integrity and Medication Management Patient needs Heavy Coil Winder/ Case Management for: Discharge Planning, Arranging Home Equipment or Services and Family Interventions Patient needs Dietary and Nutrition Services for: Adequate Nutrition, Nutritional Supplements and Nutritional Education Goals Goals Patient will remain: free from falls Patient will perform eating at: MOD I level of assist. Patient will perform bed mobility at: MOD I level of assist. Patient will complete transfers from bed to chair at: Standby Assist. Patient will ambulate: - (165 feet with least restrictive device at standby assist on various surfaces) Patient will complete upper body dressing at: MOD I level of assist. Patient will complete lower body dressing at: MOD I level of assist. (With adaptive equipment as needed) Patient will complete toilet transfer at: MOD I level of assist. Patient will complete toileting at: MOD I level of assist. Patient will perform bathing at: MOD I level of assist. (With adaptive equipment for lower body bathing as needed.) Patient will perform Tub/Shower transfer at: - (Supervision) Patient will complete grooming at: MOD I level of assist. (While standing at the sink) Patient will complete home management skills at: MOD I level of assist. Patient will achieve: - (He will complete 2 steps with 2 handrails at standby assist to allow access to his home entrance.) Patient will have pain level of: of 3 or less Patient's skin will: remain intact Patient will receive: adequate nutrition. Discharge Planning Pt Prognosis for Sig. Practical Improv. w/in Reasonable Time: Good Estimated Length of stay (days): 21 Anticipated D/C Destination: Home with Outpt Therapy Was Preadmission Assessment Accurate?: Yes
[2024-05-26 14:52] LABS: Pro- Brain NATRIURETIC PEPTIDE 3601 pg/mL (<=900)
[2024-05-26 14:54] LABS: Bacteria 0 SEEN /hpf (None Seen); Mucous, Urine 0 SEEN /hpf (<or=2+); Squamous Epithelial Cells - UA 0 SEEN /hpf (0-5); White Blood Cells 0 SEEN /hpf (0-5)
[2024-05-26 15:07] LABS: Color, Urine Yellow (Yellow); Glucose, Dipstick Normal (Normal); Ketone-Dipstick Negative (Negative); Leukocyte Esterase-Dipstick Negative /ul (Negative); Nitrite-Dipstick Negative (Negative); Occult Blood-Urine Negative /ul (Negative); Protein-Dipstick 15 mg/dl (Negative); Urine Bilirubin Dipstick Negative (Negative); Urine Clarity Clear (Clear); Urine Urobilinogen Normal (Normal)
--- NOTE | 2024-05-26 16:04 | PCM.CONS.C ---
Assessment & Plan Assessment/Plan (1) History of aortic aneurysm repair: PLAN: Patient underwent ascending aortic aneurysm repair with bypass graft surgery 05/16/2024 at [facility] by Dr. Cameron Leblanc. The patient received a BELL to the LAD and a vein graft to the diagonal and a vein graft to the PDA of the right coronary artery. Postoperative the patient's course was complicated by transient atrial fibrillation and some mild confusion. Transient renal insufficiency. Also had significant volume retention and volume overload. Patient underwent CT of the chest today which shows significant bilateral pleural effusions with compression atelectasis. There is also moderate pericardial effusion. This was reevaluated with stat echo which showed no evidence of tamponade. (2) Essential (primary) hypertension: PLAN: Blood pressure has been stable. Currently tolerating the amlodipine doxazosin and furosemide (3) CAD (coronary artery disease): QUALIFIERS: Coronary Disease-Associated Artery/Lesion type: [place] artery [place] vs. transplanted heart: galena heart Associated angina: without angina Qualified Code(s): I25.10 - Atherosclerotic heart disease of galena coronary artery without angina pectoris PLAN: Patient's status post bypass graft surgery as noted above during his recent hospitalization. (4) Debility: PLAN: Patient has been transferred to the rehab facility [facility] for the recovery and aggressive physical therapy. (5) Cardiac volume overload: PLAN: The patient appears to be significantly volume overloaded he has bilateral pleural effusions and a small to moderate-sized pericardial effusion with no evidence of tamponade. Significant lower extremity edema and edema of his upper extremities as well. Will need to attempt to mobilize some of this extravascular fluid and get him diuresed. Will start him on Lasix 40 mg twice daily. He to monitor his potassium and would consider thoracentesis of the pleural effusions. (6) Atrial fib/flutter, transient: PLAN: The patient developed transient atrial fibrillation postoperatively that converted with amiodarone therapy. He is to be on tapering amiodarone dose 400 mg twice daily for total of 14 days he started this on May 25 he will then drop it down to 200 mg a day. The patient has remained in sinus rhythm as best I can tell from the data. Currently the patient is not a candidate nor is it indicated for oral anticoagulation at this point in time given his pleural and pericardial effusions. He is a candidate for DVT prophylaxis which is instituted. He also needs to be on an aspirin a day due to his recent bypass graft surgery. PLAN: Plan 1. Diurese with Lasix IV 40 mg twice daily. 2. Monitor renal function and potassium levels. 3. Recommend attempt at draining the pleural effusions to improve respiratory status. 4. Consider measures to attempt to reclaim fluid from the extravascular space. 5. Repeat a formal echo when the patient is a more stable status in the next 48 to 72 hours. HPI Consult Data Date of Consult: 05/26/24 HPI Narrative Reason for Consultation: Pericardial effusion. HPI Narrative: CAMERON HIGGINS, is a 73 M who presents after being transferred from [facility] where he was hospitalized from May 16 through May 25, 2024. He is now on the rehab unit here at [facility]. Patient carries a history of three-vessel bypass graft surgery with a BELL to the LAD a vein graft to the diagonal and a vein graft to the PDA of the right coronary artery. The patient had an ascending aortic replacement with a 30 mm dacryon R[place] graft. Postoperatively the patient patient had some confusion which resolved and postop atrial fibrillation which converted to sinus rhythm with amiodarone. The patient also had some transient renal insufficiency that resolved and his last labs showed a creatinine of 1.08 hemoglobin is 9.1 platelets 356,000 white count 11,000 sodium 140 potassium 3.4 on 05/25/2024. Patient was transferred to [place] rehab facility for further rehabilitation given his debilitated state. His last blood pressure there was 111/87 with a pulse of 77 O2 saturation was 97% on nasal cannula. Patient's discharge medications included amiodarone 400 mg that he is to take twice daily for 14 days and then 200 mg daily. He is on furosemide 40 mg once a day metoprolol tartrate 50 mg twice daily oxycodone as needed amlodipine 5 mg daily atorvastatin 80 mg daily and Zetia 10 mg daily. Is also on aspirin a day 81 mg. The patient sternotomy was healing well he was instructed to wait limiting limits to 10 pounds until June 13 and 20 pounds after that until July 11. He is to have a follow-up with RAYMOND Pickens on June 07. Patient's IntraOp JOSUE revealed left-ventricular size to be normal with normal systolic function and normal wall motion right ventricle was normal in size the left atrium was mildly dilated with normal size appendage there was 1+ aortic valve regurgitation no stenosis. Mitral valve was structurally normal with 1+ regurgitation and no stenosis tricuspid valve was normal with trace regurgitation the aorta was aneurysmal in the ascending aorta. There was no pericardial effusion. Patient's last EKG 05/18/2024 showed sinus rhythm at [address]-T wave changes consistent with probable postop pericarditis. Occasional PAC noted. Transferred to [facility] rehab facility the patient underwent CT scan due to respiratory insufficiency. This showed significant bilateral pleural effusions the pericardial effusion. A stat echocardiogram was done which showed small amount of loculated pericardial fluid with no evidence of tamponade. [facility] Medical History Elevated coronary artery calcium score Osteoarthritis History of prostate cancer Essential (primary) hypertension Hyperlipidemia CAD (coronary artery disease) Obesity, morbid, BMI 40.0-49.9 Home Medications ?Medication ?Instructions ?Recorded ?Last Taken ?Type aspirin 81 mg tablet,delayed 81 mg PO DAILY heart health 05/02/24 05/25/24 History release (Adult Aspirin Regimen) atorvastatin 40 mg tablet 80 mg PO QHS cholesterol 05/02/24 05/24/24 History multivitamin 1 tab PO QDAY supplement 05/02/24 Unknown History doxazosin 8 mg tablet 8 mg PO BID sleep 05/05/24 Unknown History Held on 05/25/24. Instructions: Ordered acetaminophen 500 mg capsule 1,000 mg PO Q8H pain 05/25/24 05/25/24 History amiodarone 400 mg tablet 400 mg PO BID BP 05/25/24 05/25/24 History amlodipine 10 mg tablet 5 mg PO QDAY BP 05/25/24 05/25/24 History ezetimibe 10 mg tablet (Zetia) 10 mg PO QHS cholesterol 05/25/24 05/24/24 History furosemide 40 mg tablet (Lasix) 40 mg PO DAILY Fluid retention 05/25/24 05/25/24 History metoprolol succinate 50 mg 50 mg PO BID BP 05/25/24 05/25/24 History tablet,extended release 24 hr (Toprol XL) oxycodone 5 mg tablet 5 mg PO Q6H PRN pain 7-10 05/25/24 Unknown History Allergy/AdvReac Type Severity Reaction Status Date / Time No Known Allergies Allergy Verified 05/04/24 08:37 Family History Other CVA (cerebral vascular accident) Surgical History S/P CABG x 3 (05/16/24) History of aortic aneurysm repair (05/16/24) Hx of prostatectomy Hx of appendectomy History of hip replacement (~03/2023) Social History Smoking Status: Never smoker ROS Constitutional Constitutional: Reports as per HPI Eyes Eyes: Reports systems reviewed and no addt'l complaints, except as documented ENT HEENT: Reports systems reviewed and no addt'l complaints, except as documented Cardiovascular Cardiovascular: Reports as per HPI Respiratory/Chest Respiratory/Chest: Reports as per HPI Gastrointestinal Gastrointestinal: Reports systems reviewed and no addt'l complaints, except as documented Genitourinary Genitourinary: Reports as per HPI Musculoskeletal Musculoskeletal: Reports systems reviewed and no addt'l complaints, except as documented Integumentary Integumentary: Reports systems reviewed and no addt'l complaints, except as documented Neurologic Neurologic: Reports systems reviewed and no addt'l complaints, except as documented Psychiatric Psychiatric: Reports systems reviewed and no addt'l complaints, except as documented Endocrine Endocrinology: Reports systems reviewed and no addt'l complaints, except as documented Hematologic/Lymphatic Hematologic/Lymphatic: Reports systems reviewed and no addt'l complaints, except as documented Allergic/Immunologic Allergic/Immunologic: Reports systems reviewed and no addt'l complaints, except as documented Physical Exam Narrative Patient is resting in the bed at 30 degrees. He does have shortness of breath and tachypnea with minimal activity just moving in the bed. Const alert and oriented x3 HEENT normocephalic Eyes EOMs intact bilaterally Neck no carotid bruits Neck Narrative: There is JVD noted 2 cm above the clavicle at 30 degrees. Chest Chest: midline sternotomy incision Resp Resp Narrative: Patient is tachypneic with minimal activity. Auscultation: diminished lung sounds bilateral lower Cardio Cardio Narrative: Distant heart tones due to increased AP diameter Rate: regular rate Rhythm: regular rhythm Heart Sounds: S1 normal and S2 normal; Negative for click, gallop or murmur GI soft to palpation Extremity Extremity Narrative: Both lower extremities are wrapped with compression wraps due to ongoing volume overload and fluid retention. Neuro Neuro Narrative: Alert and oriented x 3 Psych mental status grossly normal Risk Stratification Risk Stratification Applicable: No Charges/Coding Visit Charges Inpatient E&M: 81507 Init Hosp L3 Objective Data Vital Signs: Vital Signs Temp Pulse Resp BP Pulse Ox O2 Del Method O2 Flow Rate 97.4 F L 106 H 18 134/91 H 94 Nasal Cannula 3 05/26/24 05:50 05/26/24 08:19 05/26/24 09:15 05/26/24 08:19 05/26/24 05:50 05/26/24 14:22 05/26/24 15:35 Oxygen Flow Rate (L/min) 3 Oxygen Delivery Method Nasal Cannula Weight: 311 lb 8.211 oz Body Mass Index (BMI) 44.6 Intake & Output: Intake and Output for Last 24 Hours 05/24/24 05/25/24 05/26/24 23:59 23:59 23:59 Intake Total 590 / 590 960 / 960 Output Total 550 / 550 Balance 590 / 590 410 / 410 Lab / Micro Data Attestation: I reviewed the patient's lab results. 05/26/24 06:20 05/26/24 06:20 Labs: Laboratory Results - last 24 hr 05/25/24 16:38: POC Glucose 104 05/25/24 22:25: POC Glucose 109 H 05/26/24 06:00: POC Glucose 103 05/26/24 06:20: WBC 10.3, RBC 3.10 L, Hgb 9.3 L, Hct 29.4 L, MCV 94.8 H, MCH 30.0, MCHC 31.6 L, RDW Std Deviation 51.5 H, RDW Coeff of Bart 15.0 H, Plt Count 418, MPV 8.8, Immature Gran % (Auto) 0.800, Neut % (Auto) 79.3 H, Lymph % (Auto) 11.4 L, [place] % (Auto) 6.0, Eos % (Auto) 2.0, Baso % (Auto) 0.5, Absolute Neuts (auto) 8.2 H, Absolute Lymphs (auto) 1.17, Nucleated RBC % 0, Sodium 142, Potassium 3.8, Chloride 106, Carbon Dioxide 26.3, Anion Gap 10, BUN 27 H, Creatinine 1.28 H, Estim Creat Clear Calc 74.02, Est GFR (MDRD) Non-Af 59 L, BUN/Creatinine Ratio 21.0 H, Glucose 112 H, Calcium 8.9, Phosphorus 3.4, Magnesium 2.5 H, Total Bilirubin 0.67, AST 55 H, ALT 65 H, Alkaline Phosphatase 89, Total Protein 6.2, Albumin 3.2 L, Globulin 3.0, Albumin/Globulin Ratio 1.1 05/26/24 11:07: POC Glucose 100 05/26/24 14:04: NT pro BNP II 3601 H 05/26/24 14:40: Urine Color Yellow, Urine Clarity Clear, Urine pH 6.0, Ur Specific [place] 1.010, Urine Protein 15 H, Urine Glucose (UA) Normal, Urine Ketones Negative, Urine Occult Blood Negative, Urine Nitrite Negative, Urine Bilirubin Negative, Urine Urobilinogen Normal, Ur Leukocyte Esterase Negative Cardiology Labs/Tests 05/26/24 06:20: WBC 10.3, RBC 3.10 L, Hgb 9.3 L, Hct 29.4 L, MCV 94.8 H, MCH 30.0, MCHC 31.6 L, Plt Count 418, MPV 8.8, Immature Gran % (Auto) 0.800, Neut % (Auto) 79.3 H, Lymph % (Auto) 11.4 L, [place] % (Auto) 6.0, Eos % (Auto) 2.0, Baso % (Auto) 0.5, Absolute Neuts (auto) 8.2 H, Nucleated RBC % 0, Sodium 142, Potassium 3.8, Chloride 106, Carbon Dioxide 26.3, Anion Gap 10, BUN 27 H, Creatinine 1.28 H, Est GFR (MDRD) Non-Af 59 L, BUN/Creatinine Ratio 21.0 H, Glucose 112 H, Calcium 8.9, Phosphorus 3.4, Magnesium 2.5 H, Total Bilirubin 0.67 05/26/24 14:40: Urine Color Yellow, Urine Clarity Clear, Urine pH 6.0, Ur Specific [place] 1.010, Urine Protein 15 H, Urine Glucose (UA) Normal, Urine Ketones Negative, Urine Occult Blood Negative, Urine Nitrite Negative, Urine Bilirubin Negative, Urine Urobilinogen Normal, Ur Leukocyte Esterase Negative Rhythm: EKG: ECHO: Stress Test: Cardiac Cath: PCI: CT Surgery: Holter monitor: EPS: PPM: CXR: Chest CT Scan: Radiography Diagnostic Testing: Radiology Impression Chest X-Ray 05/25/24 18:06 IMPRESSION: Small bilateral pleural effusions with bibasilar atelectasis. Reading Location: [id number] Chest CTA 05/26/24 14:10 IMPRESSION: Bilateral pleural effusions with bibasilar dependent atelectasis. No evidence of pulmonary embolism. Cardiomegaly. Status post CABG. Moderate-sized pericardial effusion. Reading Location: [id number]
[2024-05-26 16:16] LABS: Hyaline Cast 0-5 SEEN /lpf (0-5); Red Blood Cells-Urine 0-5 SEEN /hpf (0-5)
[2024-05-26] MEDS: Lidocaine Jelly 2% 20 ML Syringe (URO-JET) 1 APPLIC TOPICAL (16:29)
[2024-05-26 16:30] VITALS: BP 148/79; PULSE 69; RESP 17; TEMP 36.4; O2SAT 91
[2024-05-26] MEDS: 0.9% Saline Lock 10 ML Syringe IV ×2 (16:37→21:10)
[2024-05-26] MEDS: Furosemide 40 MG/4 ML Vial IV (16:38)
[2024-05-26] MEDS: Potassium Chloride Oral Tablet 20 MEQ 40 MEQ PO (16:41)
[2024-05-26] MEDS: Juven (unflavored) Packet 1 PACKET PO (16:44)
[2024-05-26 16:59] LABS: Bedside Glucose 90 mg/dL (74-106)
[2024-05-26 17:24] LABS: Vitamin B12 1167 pg/mL (180-914)
[2024-05-26 19:08] LABS: Hemoglobin A1c 5.7 % (<=5.6)
[2024-05-26] MEDS: Enoxaparin 40 MG/0.4 ML Syringe SC (21:10)
[2024-05-26] MEDS: Atorvastatin Calcium 80 MG Tablet PO (21:10)
[2024-05-26] MEDS: guaiFENesin 1,200 MG Tablet 1200 MG PO (21:10)
[2024-05-26 21:11] VITALS: BP 162/93; PULSE 84
[2024-05-26] MEDS: Doxepin Hydrochloride 10 MG Capsule PO (21:11)
[2024-05-26] MEDS: Ezetimibe 10 MG Tablet PO (21:12)
[2024-05-26 22:00] VITALS: RESP 18; O2SAT 95
[2024-05-26 22:30] LABS: Bedside Glucose 100 mg/dL (74-106)
[2024-05-27] VITALS (8 sets, daily range): BP systolic 136–148; BP diastolic 56–70; PULSE 44–84; RESP 18–20; TEMP 36.9–37.4; O2SAT 94–97; BMI 44.6
[2024-05-27] MEDS: Acetaminophen 500 MG Tablet 1000 MG PO ×3 (05:06→21:02)
[2024-05-27 07:21] LABS: Anion Gap 9 (5-15); BUN 32 mg/dL (4-19); BUN/Creat Ratio 22.1 RATIO (10-20); Calcium,Total 8.7 mg/dL (7.6-11.0); Carbon Dioxide 27.8 mmol/L (21.0-32.0); Chloride 107 mmol/L (98-108); Creatinine, Serum 1.43 mg/dL (0.70-1.20); EST Glomerular Filtration Rate 52 (>60); Estimated Creatinine Clearance 66.21 ml/min (50-250); Glucose 119 mg/dL (70-99); Magnesium 2.3 mg/dL (1.5-2.2); Potassium 3.6 mmol/L (3.3-5.1); Sodium Level 143 mmol/L (133-145)
[2024-05-27 07:22] LABS: Bedside Glucose 102 mg/dL (74-106)
[2024-05-27] MEDS: Juven (unflavored) Packet 1 PACKET PO (09:16)
[2024-05-27] MEDS: Aspirin E.C. 81 MG Tablet PO (09:16)
[2024-05-27] MEDS: Multivitamins,Therapeutic Tablet 1 TABLET PO (09:16)
[2024-05-27] MEDS: guaiFENesin 1,200 MG Tablet 1200 MG PO ×2 (09:17→21:02)
[2024-05-27] MEDS: Potassium Chloride Oral Tablet 20 MEQ PO ×3 (09:17→16:50)
[2024-05-27] MEDS: Amiodarone 200 MG Tablet 400 MG PO ×2 (09:18→21:02)
[2024-05-27] MEDS: Enoxaparin 40 MG/0.4 ML Syringe SC ×2 (09:18→21:02)
[2024-05-27] MEDS: amLODIPine 5 MG Tablet PO (09:19)
[2024-05-27] MEDS: Metoprolol(XL)Succ 50 MG Tablet PO (09:19)
[2024-05-27] MEDS: Furosemide 40 MG/4 ML Vial IV ×2 (10:55→17:00)
[2024-05-27] MEDS: 0.9% Saline Lock 10 ML Syringe IV ×2 (10:57→21:01)
--- NOTE | 2024-05-27 11:04 | PN.CARD_ITS ---
Subjective Subjective Patient is seated in a chair at the bedside. He is currently being evaluated and undergoing physical therapy evaluation. He does report and he is able to stand on his own 4 times this morning. He denies any significant shortness of breath. Lower extremities are wrapped. Patient's Lasix has been converted to 40 mg IV twice daily. His BUN and creatinine are slightly up from yesterday. His albumin is slightly depressed at 3.2 total protein is normal. Objective Data Vital Signs: Vital Signs Temp Pulse Resp BP Pulse Ox O2 Del Method O2 Flow Rate 99.3 F H 84 20 H 145/70 H 94 Nasal Cannula 3 05/27/24 05:03 05/27/24 09:19 05/27/24 05:03 05/27/24 05:03 05/27/24 07:40 05/27/24 07:40 05/27/24 09:11 Oxygen Flow Rate (L/min) 3 Oxygen Delivery Method Nasal Cannula Weight: 311 lb 2 oz Body Mass Index (BMI) 44.6 Intake & Output: Intake and Output for Last 24 Hours 05/25/24 05/26/24 05/27/24 23:59 23:59 23:59 Intake Total 590 / 590 1480 / 1480 530 / 530 Output Total 1150 / 1150 825 / 825 Balance 590 / 590 330 / 330 -295 / -295 Lab / Micro Data Attestation: I reviewed the patient's lab results. 05/26/24 06:20 05/27/24 06:45 Labs: Laboratory Results - last 24 hr 05/26/24 06:20: Hemoglobin A1c 5.7 05/26/24 11:07: POC Glucose 100 05/26/24 14:00: Vitamin B12 1167 H, TSH 2.890 05/26/24 14:04: NT pro BNP II 3601 H 05/26/24 14:40: Urine Color Yellow, Urine Clarity Clear, Urine pH 6.0, Ur Specific [place] 1.010, Urine Protein 15 H, Urine Glucose (UA) Normal, Urine Ketones Negative, Urine Occult Blood Negative, Urine Nitrite Negative, Urine Bilirubin Negative, Urine Urobilinogen Normal, Ur Leukocyte Esterase Negative, Urine RBC 0-5 SEEN, Urine WBC 0 SEEN, Ur Squamous Epith Cells 0 SEEN, Urine Bacteria 0 SEEN, Hyaline Casts 0-5 SEEN, Urine Mucus 0 SEEN 05/26/24 16:41: POC Glucose 90 05/26/24 21:38: POC Glucose 100 05/27/24 06:45: Sodium 143, Potassium 3.6, Chloride 107, Carbon Dioxide 27.8, Anion Gap 9, BUN 32 H, Creatinine 1.43 H, Estim Creat Clear Calc 66.21, Est GFR (MDRD) Non-Af 52 L, BUN/Creatinine Ratio 22.1 H, Glucose 119 H, Calcium 8.7, M agnesium 2.3 H 05/27/24 06:51: POC Glucose 102 Micro: Microbiology 05/27/24 04:45 Stool Stool Occult Blood (NORBERTO) - Final Cardiology Labs/Tests 05/26/24 06:20: Hemoglobin A1c 5.7 05/26/24 14:40: Urine Color Yellow, Urine Clarity Clear, Urine pH 6.0, Ur Specific [place] 1.010, Urine Protein 15 H, Urine Glucose (UA) Normal, Urine Ketones Negative, Urine Occult Blood Negative, Urine Nitrite Negative, Urine Bilirubin Negative, Urine Urobilinogen Normal, Ur Leukocyte Esterase Negative, Urine RBC 0-5 SEEN, Urine WBC 0 SEEN 05/27/24 06:45: Sodium 143, Potassium 3.6, Chloride 107, Carbon Dioxide 27.8, Anion Gap 9, BUN 32 H, Creatinine 1.43 H, Est GFR (MDRD) Non-Af 52 L, B UN/Creatinine Ratio 22.1 H, Glucose 119 H, Calcium 8.7, Magnesium 2.3 H Rhythm: EKG: ECHO: Stress Test: Cardiac Cath: PCI: CT Surgery: Holter monitor: EPS: PPM: CXR: Chest CT Scan: Radiography Diagnostic Testing: Radiology Impression Chest CTA 05/26/24 14:10 IMPRESSION: Bilateral pleural effusions with bibasilar dependent atelectasis. No evidence of pulmonary embolism. Cardiomegaly. Status post CABG. Moderate-sized pericardial effusion. Reading Location: [facility] Physical Exam Const alert and oriented x3 HEENT normocephalic Eyes EOMs intact bilaterally Chest Chest: midline sternotomy incision Resp normal respiratory effort Extremity Extremity Narrative: Both lower extremities wrapped with compression wraps up to the knees. Neuro Neuro Narrative: Alert and oriented x 3 Psych mental status grossly normal Assessment & Plan Assessment/Plan (1) Cardiac volume overload: PLAN: The N-terminal proBNP was 3601. Clinically he appears volume overloaded with extracellular fluid. The patient's nutritional status is adequate with albumin of 3.2 and normal total protein. He is responding to IV diuretics last 12 hours CUBA's are negative over 200 cc. BUN and creatinine are up slightly to 32 and 1.43 with GFR of 52. Previous BUN and creatinine were 27 and 1.28. This is being monitored closely given his IV diuresis. Patient's blood pressures been adequate controlled at 145-160/70-93. Given his pericardial effusion we were concerned about hypotension. There is been no real change in his weight it appears his total I's and O's of -485 since admission. (2) Pericardial effusion: PLAN: Patient's echocardiogram done urgently yesterday was a limited echo that showed no evidence of tamponade. Final report is pending at this time. Would recommend we repeat a formal full echocardiogram in the next 24 to 48 hours. PLAN: Plan 1. Continue IV Lasix for diuresis. 2. Monitor renal function closely he does have a history of acute renal failure in his early postoperative state following his aorta reconstruction. 3. Will perform formal full 2D echocardiogram in the next 24 to 48 hours. Charges/Coding Visit Charges Inpatient E&M: 40010 [facility] Hosp L1
[2024-05-27 11:14] LABS: Bedside Glucose 103 mg/dL (74-106)
[2024-05-27 17:41] LABS: Bedside Glucose 111 mg/dL (74-106)
[2024-05-27] MEDS: Ezetimibe 10 MG Tablet PO (21:01)
[2024-05-27] MEDS: Atorvastatin Calcium 80 MG Tablet PO (21:02)
[2024-05-27] MEDS: Doxepin Hydrochloride 10 MG Capsule PO (21:02)
[2024-05-27 22:33] LABS: Bedside Glucose 117 mg/dL (74-106)
[2024-05-28] VITALS (7 sets, daily range): BP systolic 120–168; BP diastolic 72–92; PULSE 80–112; RESP 18; TEMP 36.6–37.4; O2SAT 93–94; BMI 43.9
[2024-05-28] MEDS: Acetaminophen 500 MG Tablet 1000 MG PO ×3 (05:50→21:12)
[2024-05-28] MEDS: Metoprolol(XL)Succ 50 MG Tablet PO ×2 (06:28→21:12)
--- NOTE | 2024-05-28 06:47 | NURSING ---
Pt hr this am 108-112. Asymptomatic. Call to hospitalist. Order to give 10 am dose of toprol xl 50 mg now.
[2024-05-28 07:01] LABS: Bedside Glucose 113 mg/dL (74-106)
[2024-05-28] MEDS: Multivitamins,Therapeutic Tablet 1 TABLET PO (08:20)
[2024-05-28] MEDS: guaiFENesin 1,200 MG Tablet 1200 MG PO ×2 (08:20→21:12)
[2024-05-28] MEDS: Amiodarone 200 MG Tablet 400 MG PO ×2 (08:20→21:12)
[2024-05-28] MEDS: Aspirin E.C. 81 MG Tablet PO (08:20)
[2024-05-28] MEDS: Potassium Chloride Oral Tablet 20 MEQ PO ×2 (08:20→16:01)
[2024-05-28] MEDS: amLODIPine 5 MG Tablet PO (08:21)
[2024-05-28] MEDS: Enoxaparin 40 MG/0.4 ML Syringe SC ×2 (08:21→21:12)
[2024-05-28] MEDS: Senna/Docusate Sodium 1 Tablet 2 TABLET PO (08:21)
[2024-05-28] MEDS: Furosemide 40 MG/4 ML Vial IV ×2 (08:57→16:54)
[2024-05-28] MEDS: 0.9% Saline Lock 10 ML Syringe IV ×2 (08:57→16:54)
[2024-05-28 11:45] LABS: Bedside Glucose 134 mg/dL (74-106)
[2024-05-28 16:29] LABS: Bedside Glucose 147 mg/dL (74-106)
[2024-05-28] MEDS: oxyCODONE 5 MG Tablet PO (19:48)
[2024-05-28] MEDS: Ezetimibe 10 MG Tablet PO (21:11)
[2024-05-28] MEDS: Doxepin Hydrochloride 10 MG Capsule PO (21:12)
[2024-05-28] MEDS: Atorvastatin Calcium 80 MG Tablet PO (21:12)
[2024-05-28 21:32] LABS: Bedside Glucose 116 mg/dL (74-106)
[2024-05-29] VITALS (7 sets, daily range): BP systolic 146–154; BP diastolic 58–82; PULSE 78–83; RESP 18–20; TEMP 36.8–37.1; O2SAT 94–97; BMI 43.5
[2024-05-29] MEDS: Acetaminophen 500 MG Tablet 1000 MG PO ×3 (05:29→22:24)
[2024-05-29 05:51] LABS: Absolute Lymphocyte Count 1.53 X10^3/uL (0.83-4.51); Basophil# 0.11 X10^3/uL; Basophil% 0.9 % (0-1); Eosinophil# 0.34 X10^3/uL; Eosinophils% 2.7 % (0-5); Hematocrit 29.9 % (40-54); Hemoglobin 9.6 g/dL (13.0-16.5); Lymphocyte # 1.53 X10^3/ul (0.83-4.51); Lymphocyte % 11.9 % (19-41); Mean Corp Hgb Conc 32.1 g/dL (32-36); Mean Corpuscular Hgb 30.5 pg (27.0-32.0); Mean Corpuscular Volume 94.9 fL (80-94); Mean Platelet Vol. 8.5 fl (6.2-12.0); Monocyte# 0.76 X10^3/uL; Monocyte% 5.9 % (0-10); NRBC Flagged by Analyzer 0 % (0-5); Neutrophil % 78.1 % (47-70); Platelet Count 490 K/mm3 (150-450); RBC Distribution Width CV 15.5 % (11.6-14.6); RBC Distribution Width SD 52.8 fl (35.1-43.9); Red Blood Count 3.15 M/mm3 (4.6-6.2); White Blood Count 12.8 K/mm3 (4.4-11.0)
[2024-05-29 06:48] LABS: Anion Gap 11 (5-15); BUN 27 mg/dL (4-19); BUN/Creat Ratio 19.8 RATIO (10-20); Calcium,Total 9.1 mg/dL (7.6-11.0); Carbon Dioxide 27.6 mmol/L (21.0-32.0); Chloride 108 mmol/L (98-108); Creatinine, Serum 1.37 mg/dL (0.70-1.20); EST Glomerular Filtration Rate 55 (>60); Estimated Creatinine Clearance 68.19 ml/min (50-250); Glucose 104 mg/dL (70-99); Magnesium 2.3 mg/dL (1.5-2.2); Potassium 4.1 mmol/L (3.3-5.1); Sodium Level 146 mmol/L (133-145)
[2024-05-29 07:07] LABS: Bedside Glucose 86 mg/dL (74-106)
[2024-05-29] MEDS: amLODIPine 5 MG Tablet PO (08:53)
[2024-05-29] MEDS: Enoxaparin 40 MG/0.4 ML Syringe SC ×2 (08:54→22:24)
[2024-05-29] MEDS: Metoprolol(XL)Succ 50 MG Tablet PO ×2 (08:54→22:34)
[2024-05-29] MEDS: Aspirin E.C. 81 MG Tablet PO (08:54)
[2024-05-29] MEDS: Amiodarone 200 MG Tablet 400 MG PO ×2 (08:54→22:24)
[2024-05-29] MEDS: guaiFENesin 1,200 MG Tablet 1200 MG PO ×2 (08:55→22:23)
[2024-05-29] MEDS: Multivitamins,Therapeutic Tablet 1 TABLET PO (08:55)
[2024-05-29] MEDS: Potassium Chloride Oral Tablet 20 MEQ PO ×2 (08:59→18:17)
--- NOTE | 2024-05-29 09:18 | PCM.PROGNOTE ---
Subjective Subjective Rich was seen on team rounds today. Family was present in the room for rounds. All questions were answered to their satisfaction. Afebrile VSS -blood pressure over the past 24 hours has ranged from 120/72 to 168/80. It is more often than not elevated above 130/80. Heart rate over the past 48 hours has ranged from 44-112. 1 dose of metoprolol was held due to bradycardia. Orthostatic vital signs are negative today. Maintaining appropriate oxygen saturation on a 2 L nasal cannula. Pulse ox is ranging from 94 to 97%. Oral intake - FOOD good FLUIDS fluid balance yesterday was -2150. Fluid balance on Wednesday was -1575. Weight today is 303 pounds and 13 ounces which is down from 313 pounds and 5 ounces on 05/25/2024. Discussed with nursing - no problems that need addressed Reviewed the THERAPY notes Medication list reviewed. All lab from this morning was personally reviewed. White blood cell count is mildly elevated at 12.8. Hemoglobin is stable at 9.6 and platelets are mildly elevated at 491,000. He has a persistent mild left shift. Sodium is 146 today and the potassium is 4.1. BUN is 27 with a creatinine of 1.37 which was down from 1.43 on 05/27/2024. Magnesium is 2.3 and calcium is normal. B12 and TSH were normal. UA on Wednesday had 0 WBCs. Stool for occult blood is negative Tells me that his breathing is much better than Wednesday. Denies lightheadedness. Still hypoxic on RA at rest and worse with exertion. Denies CP, palpitations, N/V/Abd pain, calf pain, suprapubic pain. Has a cough.....productive of clear sputum. Having some dried blood clots from the nose occasionally. Tells me that he is feeling more alert during the day......this wanes in the evening and he does . B12 and TSH are normal. Objective Data Objective Data Vital Signs: Vital Signs Temp Pulse Resp BP Pulse Ox O2 Del Method O2 Flow Rate 98.8 F 82 18 148/82 H 97 Nasal Cannula 2 05/29/24 05:31 05/29/24 08:54 05/29/24 05:31 05/29/24 05:31 05/29/24 06:45 05/29/24 06:45 05/29/24 07:49 Oxygen Flow Rate (L/min) 2 Oxygen Delivery Method Nasal Cannula Weight: 303 lb 12.752 oz Body Mass Index (BMI) 43.5 Intake & Output: Intake and Output for Last 24 Hours 05/27/24 05/28/24 05/29/24 23:59 23:59 23:59 Intake Total 1250 / 1250 1150 / 1150 200 / 200 Output Total 2825 / 2825 3300 / 3300 400 / 400 Balance -1575 / -1575 -2150 / -2150 -200 / -200 Lab / Micro Data 05/29/24 05:24 05/29/24 05:24 Labs: Laboratory Results - last 24 hr 05/28/24 11:23: POC Glucose 134 H 05/28/24 16:11: POC Glucose 147 H 05/28/24 21:09: POC Glucose 116 H 05/29/24 05:24: WBC 12.8 H, RBC 3.15 L, Hgb 9.6 L, Hct 29.9 L, MCV 94.9 H, MCH 30.5, MCHC 32.1, RDW Std Deviation 52.8 H, RDW Coeff of Bart 15.5 H, Plt Count 490 H, MPV 8.5, Immature Gran % (Auto) 0.500, Neut % (Auto) 78.1 H, Lymph % (Auto) 11.9 L, Wayne % (Auto) 5.9, Eos % (Auto) 2.7, Baso % (Auto) 0.9, Absolute Neuts (auto) 10.0 H, Absolute Lymphs (auto) 1.53, Nucleated RBC % 0, Sodium 146 H, Potassium 4.1, Chloride 108, Carbon Dioxide 27.6, Anion Gap 11, BUN 27 H, Creatinine 1.37 H, Estim Creat Clear Calc 68.19, Est GFR (MDRD) Non-Af 55 L, BUN/Creatinine Ratio 19.8, Glucose 104 H, Calcium 9.1, Magnesium 2.3 H 05/29/24 05:42: POC Glucose 86 Micro: Microbiology 05/27/24 04:45 Stool Stool Occult Blood (NORBERTO) - Final Physical Exam Const alert Constitutional Narrative: No conversational dyspnea at rest today. General Appearance: cooperative HEENT HEENT Narrative: mucous membranes are mildly dry Neck Neck Narrative: sitting in the recliner....could not check for JVD General: trachea midline Resp Resp Narrative: No conversational dyspnea sitting in the recliner. Breath sounds are still markedly diminished in both bases. He has egophony in the right base, more likely than not secondary to compressive atelectasis rather than pneumonia. No wheezing today. He had scattered mild expiratory wheezes on Wednesday. Effort and Inspection: Negative for tachypneic or respiratory distress Cardio regular rate and regular rhythm Cardio Narrative: Distant heart sounds. No ectopy. GI normal to inspection, nondistended, normoactive bowel sounds and soft to palpation GI Narrative: No guarding with palpation urine in the Davenport bag is pale yellow and clear. No hematuria observed. Extremity General Extremity: edema bilateral (Has pitting edema both lower extremities up into the posterior thighs. No flank edema.) Skin Wound Narrative: All incisions are intact with no dehiscence, no yiesl-incisional erythema and no discharge. Neuro CN's II-XII intact bilaterally and no focal motor deficits Assessment & Plan Assessment/Plan (1) Debility: (2) S/P CABG x 2: (3) History of aortic aneurysm repair: (4) Acute respiratory failure with hypoxia: (5) Orthostatic hypotension: (6) Essential (primary) hypertension: (7) Hyperlipidemia: QUALIFIERS: Hyperlipidemia type: unspecified Qualified Code(s): E78.5 - Hyperlipidemia, unspecified (8) CAD (coronary artery disease): QUALIFIERS: Coronary Disease-Associated Artery/Lesion type: [place] artery [place] vs. transplanted heart: [place] heart Associated angina: without angina Qualified Code(s): I25.10 - Atherosclerotic heart disease of [place] coronary artery without angina pectoris (9) Obesity, morbid, BMI 40.0-49.9: (10) Acute blood loss as cause of postoperative anemia: (11) Sleep-disordered breathing: (12) Bilateral pleural effusion: (13) Compressive atelectasis: PLAN: Plan 1. Continue therapy 2. PA and lateral chest x-ray today. Sodium is starting to climb with aggressive diuresis. I suspect he still has significant bilateral pleural effusions. If the chest x-ray today still shows significant effusions we will consult interventional radiology for thoracentesis. Between the decreased resp excursion due to morbid obesity, pleural effusions, compressive atelectasis and suspected PAUL breathing with exertion is significantly impaired. 3. Recheck lab on Wednesday. BMP and BNP. 4. Continue Lasix. 5. Continue use of Davenport catheter for accurate intake and output in this patient who is being aggressively diuresed and is incontinent of urine. Charges/Coding Visit Charges Inpatient E&M: 36642 Subs Hosp L2
[2024-05-29] MEDS: Furosemide 40 MG/4 ML Vial IV ×2 (09:53→18:17)
[2024-05-29] MEDS: 0.9% Saline Lock 10 ML Syringe IV ×2 (09:53→22:43)
--- NOTE | 2024-05-29 11:17 | RAD_ITS ---
PROCEDURE: CHEST PA AND LATERAL 05/29/2024 REASON FOR EXAM: BL PLEURAL EFFUSIONS TECHNIQUE: Frontal and lateral views of the chest. COMPARISON: CTA chest 05/26/2024. Chest radiograph 05/25/2024. FINDINGS: Hardware: Prior median sternotomy and CABG. Heart: The heart is at least mildly enlarged with obscuration of the cardiac borders. Mediastinum: Grossly unremarkable, however partially obscured by pleural effusions. Lungs: Low lung volumes. Increased size of the now moderate to large bilateral pleural effusions and adjacent atelectasis. No focal consolidation or pneumothorax. Bones: Degenerative changes are identified within the thoracic spine. RAD/Chest PA and Lateral IMPRESSION: Increased size of the now moderate to large bilateral pleural effusions and adj acent atelectasis. Reading Location: [id number]
--- NOTE | 2024-05-29 13:24 | CASEMGMT ---
Social Work IDT met with patient, ELIZABETH, and 3 dtrs at bedside, then 2 sons via conference call for Team meeting. Discussed patient's progress in PT/OT/ST/SN. Educated to Medicare approval of 15 days with DC 06/09. Pt is new on O2 and Dr recommending sleep study at DC. SW to coordinate needs. Pt scored 40/50 on BCAT. Recommended family assist with overseeing meds and finances at DC. Noted pt is sundowning. SW requested family provide copies of advance directives to place on file. Will ReTeam next week and finalize DC plans. SW will continue to follow. Franci Rosales CAP [employer]CING ASSISTANT
[2024-05-29] MEDS: Sodium Chloride 0.65% 1 SPRAY SPRAY.BTL 2 SPRAY NASAL ×2 (14:12→22:23)
[2024-05-29] MEDS: Senna/Docusate Sodium 1 Tablet 2 TABLET PO (22:24)
[2024-05-29] MEDS: Doxepin Hydrochloride 10 MG Capsule PO (22:24)
[2024-05-29] MEDS: Atorvastatin Calcium 80 MG Tablet PO (22:27)
[2024-05-29] MEDS: Ezetimibe 10 MG Tablet PO (22:34)
[2024-05-30] VITALS (11 sets, daily range): BP systolic 110–153; BP diastolic 62–93; PULSE 80–86; RESP 16–19; TEMP 36.5–36.7; O2SAT 93–96; BMI 43.4
[2024-05-30] MEDS: Acetaminophen 500 MG Tablet 1000 MG PO (05:14)
[2024-05-30] MEDS: Sodium Chloride 0.65% 1 SPRAY SPRAY.BTL 2 SPRAY NASAL ×2 (05:14→21:29)
[2024-05-30 06:10] LABS: International Normalized Ratio 1.2; Prothrombin Time (Protime)PT. 15.6 SECONDS (11.7-14.9)
[2024-05-30 06:11] LABS: Partial Thromboplast Time 33.9 Seconds (24.1-36.2)
[2024-05-30] MEDS: Multivitamins,Therapeutic Tablet 1 TABLET PO (09:09)
[2024-05-30] MEDS: Aspirin E.C. 81 MG Tablet PO (09:09)
[2024-05-30] MEDS: amLODIPine 5 MG Tablet PO (09:10)
[2024-05-30] MEDS: Potassium Chloride Oral Tablet 20 MEQ PO ×2 (09:10→17:48)
[2024-05-30] MEDS: Metoprolol(XL)Succ 50 MG Tablet PO ×2 (09:10→21:30)
[2024-05-30] MEDS: guaiFENesin 1,200 MG Tablet 1200 MG PO ×2 (09:10→21:30)
[2024-05-30] MEDS: Furosemide 40 MG/4 ML Vial IV ×2 (09:11→17:48)
[2024-05-30] MEDS: Amiodarone 200 MG Tablet 400 MG PO ×2 (09:11→21:31)
[2024-05-30] MEDS: 0.9% Saline Lock 10 ML Syringe IV ×3 (09:12→21:32)
--- NOTE | 2024-05-30 09:45 | CASEMGMT ---
Social Work ELIZABETH provided copies of pt's advance directives. Copies placed on chart. Franci Rosales MANAGER [employer]
--- NOTE | 2024-05-30 10:04 | PN_ITS ---
Subjective Subjective Afebrile VSS -heart rate is within normal limits. Blood pressure over the past 24 hours has ranged from 146/58 to 153/83. Maintaining appropriate oxygen saturation on O2 2 liter nasal cannula at rest and 3 LPM with exertion. Nursing frequently checked his pulse ox on 2 L while sleeping last night and he maintained an appropriate oxygen saturation. STOP BANG score is 6 so he still needs to have a formal sleep study. Oral intake - FOOD good FLUIDS staying within his fluid restriction of 1200 cc daily. Fluid balance yesterday was -1175. The last bowel movement was on 05/28/2024. Weight today is down 1 pound from yesterday. Discussed with nursing - no problems that need addressed. Not elevating his legs when sitting in the recliner. Reviewed the THERAPY notes Medication list reviewed. Antihypertensives include amlodipine 5 mg daily and metoprolol XL 50 mg twice daily. He is taking amiodarone for paroxysmal atrial fibrillation and is currently on a loading dose of 400 mg twice daily. Heart rate is within normal limits with the combination of amiodarone and metoprolol. Forest continues to complain of shortness of breath, mostly with exertion. He is going for thoracentesis today at 130. He is sleeping better at night with doxepin. Davenport catheter remains in place for accurate intake and outputs. Consider discontinuing in the a.m. if lab work is stable. Urine in the Davenport bag looks a little cloudy and there is a pink tinge. Denies chest pain. Primary complaint is shortness of breath with exertion which I suspect will improve with thoracentesis today. He still has a cough with clear sputum but the cough is lessening. Denies lightheadedness. Denies palpitations, nausea/vomiting/abdominal pain, suprapubic pain and calf tenderness. Has lost approximately 11 lbs since last Wednesday when IV Lasix was initiated. Objective Data Objective Data Vital Signs: Vital Signs Temp Pulse Resp BP Pulse Ox O2 Del Method O2 Flow Rate 97.7 F L 81 19 H 153/83 H 95 Nasal Cannula 2 05/30/24 05:15 05/30/24 09:10 05/30/24 05:15 05/30/24 05:15 05/30/24 05:15 05/30/24 05:15 05/30/24 08:05 Oxygen Flow Rate (L/min) 2 Oxygen Delivery Method Nasal Cannula Weight: 302 lb 11.115 oz Body Mass Index (BMI) 43.4 Intake & Output: Intake and Output for Last 24 Hours 05/28/24 05/29/24 05/30/24 23:59 23:59 23:59 Intake Total 1150 / 1150 1020 / 1070 450 / 450 Output Total 3300 / 3300 1200 / 2425 1645 / 1645 Balance -2150 / -2150 -180 / -1355 -1195 / -1195 Lab / Micro Data 05/29/24 05:24 05/29/24 05:24 Labs: Laboratory Results - last 24 hr 05/30/24 05:40: PT 15.6 H, INR 1.2, APTT 33.9 Micro: Microbiology 05/27/24 04:45 Stool Stool Occult Blood (NORBERTO) - Final Radiography Diagnostic Testing: Radiology Impression Chest X-Ray 05/29/24 11:17 IMPRESSION: Increased size of the now moderate to large bilateral pleural effusions and adjacent atelectasis. Reading Location: [facility] Physical Exam Const alert Constitutional Narrative: Much more alert than at admission. Thought processing has improved. Nursing has not mentioned ing the past few days General Appearance: cooperative Resp Resp Narrative: No conversational dyspnea sitting in the recliner. Breath sounds are still markedly diminished in both bases. He has egophony in the right base, more likely than not secondary to compressive atelectasis rather than pneumonia. No wheezing today. He had scattered mild expiratory wheezes on Wednesday. Effort and Inspection: Negative for tachypneic or respiratory distress Cardio regular rate and regular rhythm Cardio Narrative: Distant heart sounds. No ectopy. GI normal to inspection, nondistended, normoactive bowel sounds and soft to palpation GI Narrative: No guarding with palpation Urine in the Davenport bag and tubing looks a littler cloudy today and has a pink tinge. No gross hematuria observed. The abd is less distended and the abd wall is softer since he has been diuresed. Extremity no calf tenderness Extremity Narrative: The pitting edema of the posterior thighs is decreasing and the tissue is softer. No pitting in the flanks. Abd is less distended and the abd wall is softer to palpation. General Extremity: edema bilateral (Has pitting edema both lower extremities up into the posterior thighs. No flank edema.) Skin Rashes: no rashes Wound Narrative: All incisions are intact with no dehiscence, no yisel-incisional erythema and no discharge. Assessment & Plan Assessment/Plan (1) Debility: (2) S/P CABG x 2: (3) History of aortic aneurysm repair: (4) Acute respiratory failure with hypoxia: (5) Orthostatic hypotension: (6) Essential (primary) hypertension: (7) Hyperlipidemia: QUALIFIERS: Hyperlipidemia type: unspecified Qualified Code(s): E 78.5 - Hyperlipidemia, unspecified (8) CAD (coronary artery disease): QUALIFIERS: Coronary Disease-Associated Artery/Lesion type: [place] artery [place] vs. transplanted heart: [place] heart Associated angina: without angina Qualified Code(s): I25.10 - Atherosclerotic heart disease of [place] coronary artery without angina pectoris (9) Obesity, morbid, BMI 40.0-49.9: (10) Acute blood loss as cause of postoperative anemia: (11) Sleep-disordered breathing: (12) Bilateral pleural effusion: (13) Compressive atelectasis: (14) Pericardial effusion: PLAN: Small pericardial effusion on transthoracic echocardiogram with no evidence of cardiac tamponade. PLAN: Plan 1. Continue therapy 2. Plan thoracentesis this afternoon at 1:30 PM 3. BMP ordered for the a.m. 4. If lab is stable in the a.m. consider discontinuing the Davenport catheter and using daily weights to help adjust diuretics 5. Check a UA today 6. He seems much more alert during the day than at admission and he is not napping......I suspect this has a lot to do with providing supplemental oxygen at night and getting better sleep with the addition of doxepine 10 mg to the HS drug regimen. When the Davenport is removed will do 3 more PVR's. Charges/Coding Visit Charges Inpatient E&M: 32110 [facility] L1
[2024-05-30 12:02] LABS: Mucous, Urine 0 SEEN /hpf (<or=2+); Squamous Epithelial Cells - UA 0 SEEN /hpf (0-5)
[2024-05-30 12:15] LABS: Color, Urine Yellow (Yellow); Glucose, Dipstick Normal (Normal); Ketone-Dipstick Negative (Negative); Leukocyte Esterase-Dipstick 500 /ul (Negative); Nitrite-Dipstick Positive (Negative); Occult Blood-Urine 150 /ul (Negative); Protein-Dipstick 15 mg/dl (Negative); Urine Bilirubin Dipstick Negative (Negative); Urine Clarity Cloudy (Clear); Urine Urobilinogen Normal (Normal)
--- NOTE | 2024-05-30 14:15 | RAD_ITS ---
EXAM: Chest inspiration expiration views. CLINICAL HISTORY: Status post right thoracentesis. COMPARISON: Prior study dated May 29, 2024. TECHNIQUE: AP inspiration expiration views were obtained following the right thoracentesis. FINDINGS: No evidence of pneumothorax. Residual pleural-parenchymal changes at the left lung base. Cardiomegaly. RAD/Chest Insp/Exp 2 View IMPRESSION: No evidence of pneumothorax on the immediate post right thoracentesis. Reading Location: [facility]
--- NOTE | 2024-05-30 14:40 | PCM.OPRPT ---
Problems Associated Problem List Diagnoses (1) Bilateral pleural effusion: Multi Select Codes Radiology Radiology US Procedures: 80548 Thoracentesis Operative Report (Standard) Operative Information Date of Procedure: 05/30/24 Pre-Operative Diagnosis: Pleural effusion Post-Operative Diagnosis: Pleural effusion Surgery/Procedure Performed: Ultrasound-guided thoracentesis pantograph machine set up operator: No Type of Anesthesia: Local Procedure Start Time: 13:47 Procedure Stop Time: 14:08 Select all DRAINS/GRAFTS/IMPLANTS that apply: None Estimated Blood Loss: 0 Specimen collected: No Description of surgery: PROCEDURE: Ultrasound Guided Thoracentesis ORDERING PROVIDER: Dr. Alyce Whelan INDICATION: Male, 73 years old. Pleural effusion. PROVIDER: LAMONTE Varela PROCEDURE: The risks, benefits, and alternatives to the procedure were explained to the patient. The specific risks of bleeding, infection, and pneumothorax requiring chest tube insertion were discussed and accepted. Written informed consent was obtained. His Lovenox has been on hold. Coagulation studies were reviewed preprocedure. The patient was placed in the sitting, upright position. Ultrasonographic evaluation of the bilateral lower pleural spaces was carried out. An adequate pocket was identified in the right lower pleural space. The overlying skin was prepped with chlorhexidine and draped in sterile fashion. 2 % lidocaine was administered subcutaneously for local anesthesia. Under ultrasound guidance, a 5-Turkmen thoracentesis needle/catheter system was advanced into the right posterior lower pleural fluid collection. 1130 ml of blood-tinged colored fluid was drained. The catheter was removed, and a sterile dressing was applied. The patient tolerated the procedure well. A chest x-ray was ordered. There was no evidence of pneumothorax. There were no immediate complications. The procedure was proctored by interventional radiologist Dr. Lemus. The patient was transported back to inpatient rehab. IMPRESSION: Successful ultrasound guided thoracentesis of right pleural effusion. Surgical Findings: None Complications Complications: No
[2024-05-30 18:06] LABS: Bacteria 3+ /hpf (None Seen)
[2024-05-30 18:07] LABS: Amorphous Sediment 3+
[2024-05-30 18:09] LABS: Red Blood Cells-Urine 5-10 SEEN /hpf (0-5)
[2024-05-30 18:11] LABS: Triple Phosphate Crystals Ur 2+ /hpf (<or=1+); White Blood Cells 5-10 SEEN /hpf (0-5)
[2024-05-30] MEDS: Enoxaparin 40 MG/0.4 ML Syringe SC (21:30)
[2024-05-30] MEDS: Ezetimibe 10 MG Tablet PO (21:30)
[2024-05-30] MEDS: Senna/Docusate Sodium 1 Tablet 2 TABLET PO (21:30)
[2024-05-30] MEDS: Doxepin Hydrochloride 10 MG Capsule PO (21:30)
[2024-05-30] MEDS: Atorvastatin Calcium 80 MG Tablet PO (21:31)
[2024-05-31 06:00] VITALS: BP 160/84; PULSE 80; RESP 16; TEMP 36.8; O2SAT 95; BMI 42.0
[2024-05-31 06:28] LABS: Anion Gap 9 (5-15); BUN 26 mg/dL (4-19); BUN/Creat Ratio 19.3 RATIO (10-20); Carbon Dioxide 29.6 mmol/L (21.0-32.0); Chloride 107 mmol/L (98-108); Creatinine, Serum 1.34 mg/dL (0.70-1.20); EST Glomerular Filtration Rate 56 (>60); Estimated Creatinine Clearance 69.58 ml/min (50-250); Glucose 102 mg/dL (70-99); Potassium 3.8 mmol/L (3.3-5.1); Sodium Level 146 mmol/L (133-145)
[2024-05-31] MEDS: Sodium Chloride 0.65% 1 SPRAY SPRAY.BTL 2 SPRAY NASAL ×3 (06:57→20:09)
[2024-05-31 08:00] VITALS: O2SAT 97
[2024-05-31] MEDS: Multivitamins,Therapeutic Tablet 1 TABLET PO (09:06)
[2024-05-31] MEDS: Amiodarone 200 MG Tablet 400 MG PO ×2 (09:06→20:07)
[2024-05-31] MEDS: Potassium Chloride Oral Tablet 20 MEQ PO ×2 (09:06→17:06)
[2024-05-31] MEDS: Enoxaparin 40 MG/0.4 ML Syringe SC ×2 (09:06→20:08)
[2024-05-31] MEDS: guaiFENesin 1,200 MG Tablet 1200 MG PO ×2 (09:06→20:08)
[2024-05-31] MEDS: Furosemide 40 MG/4 ML Vial IV ×2 (09:06→17:07)
--- NOTE | 2024-05-31 09:06 | PCM.PROGNOTE ---
Subjective Subjective Afebrile Blood pressure over the past 24 hours has ranged from 110/62 to 160/84 this morning. Heart rate is in the 80s. Oxygen saturation is 95-97 on 2 L of nasal O2. Nursing comments that the patient did not sleep well last night. Fluid balance yesterday was -4075. He had 4470 out in urine. Weight today is 293 pounds and 3 ounces, down from 313 pounds and 5 ounces on 05/25/2024. Lab from today was personally reviewed. Sodium is stable at 146 and the potassium is 3.8. The BUN is stable at 26 and the creatinine is stable at 1.34. UA yesterday was positive for nitrite and had 5-10 WBCs and 5-10 RBCs. There was 3+ bacteria, 3+ amorphous sediment and 2+ triple phosphate crystals. A urine culture was ordered and is pending. He is asymptomatic. He had thoracentesis yesterday. 1130 cc was removed from around the right lung. Postprocedure x-ray showed no pneumothorax. There is reexpansion of the right lower lobe. continues to have L pleural effusion. Denies CP. Tells me that his breathing has improved. Still getting winded with exertion. Weight at jessica after Wegov[place] was 253. Denies lightheadedness, cephalgia, palpitations, nausea/vomiting/abdominal pain, calf pain. Objective Data Objective Data Vital Signs: Vital Signs Temp Pulse Resp BP Pulse Ox O2 Del Method O2 Flow Rate 98.2 F 80 16 160/84 H 97 Nasal Cannula 2 05/31/24 06:00 05/31/24 06:00 05/31/24 06:00 05/31/24 06:00 05/31/24 08:00 05/31/24 06:00 05/31/24 08:00 Oxygen Flow Rate (L/min) 2 Oxygen Delivery Method Nasal Cannula Weight: 293 lb 3.437 oz Body Mass Index (BMI) 42.0 Intake & Output: Intake and Output for Last 24 Hours 05/29/24 05/30/24 05/31/24 23:59 23:59 23:59 Intake Total 1020 / 1070 830 / 830 50 / 50 Output Total 1200 / 2425 5600 / 5600 550 / 550 Balance -180 / -1355 -4770 / -4770 -500 / -500 Lab / Micro Data 05/29/24 05:24 05/31/24 05:31 Labs: Laboratory Results - last 24 hr 05/30/24 11:54: Urine Color Yellow, Urine Clarity Cloudy, Urine pH 8.0, Ur Specific [place] 1.010, Urine Protein 15 H, Urine Glucose (UA) Normal, Urine Ketones Negative, Urine Occult Blood 150 H, Urine Nitrite Positive H, Urine Bilirubin Negative, Urine Urobilinogen Normal, Ur Leukocyte Esterase 500 H, Urine RBC 5-10 SEEN, Urine WBC 5-10 SEEN, Ur Squamous Epith Cells 0 SEEN, Triple Phos Crystals 2+, Amorphous Sediment 3+, Urine Bacteria 3+, Urine Mucus 0 SEEN 05/31/24 05:31: Sodium 146 H, Potassium 3.8, Chloride 107, Carbon Dioxide 29.6, Anion Gap 9, BUN 26 H, Creatinine 1.34 H, Estim Creat Clear Calc 69.58, Est GFR (MDRD) Non-Af 56 L, BUN/Creatinine Ratio 19.3, Glucose 102 H, Calcium 9.0 Micro: Microbiology 05/27/24 04:45 Stool Stool Occult Blood (NORBERTO) - Final Radiography Diagnostic Testing: Radiology Impression Chest X-Ray 05/30/24 14:15 IMPRESSION: No evidence of pneumothorax on the immediate post right thoracentesis. Reading Location: [place] [address] Physical Exam Const alert and no apparent distress General Appearance: cooperative Resp Resp Narrative: Much better air exchange in the right base today. No wheezing and no crackles. Breath sounds in the lower 1/3-1/2 of the left lung are very diminished. He was mildly tachypneic when I saw him but he had just walked a few laps around the therapy room. Not tachypneic and no conversational dyspnea when sitting in his recliner. No cough with deep breathing. Tells me that his cough is very minimal now. Effort and Inspection: Negative for uses accessory muscles Cardio regular rate, regular rhythm, no rub and no gallops Cardio Narrative: No ectopy GI normal to inspection, nondistended, normoactive bowel sounds, soft to palpation and non-tender Extremity no calf tenderness Extremity Narrative: the edema of the posterior thighs is much improved........not really pitting today and the tissue is soft and not boggy. Still with pitting edema of the distal LE's. General Extremity: edema Skin Rashes: no rashes Neuro CN's II-XII intact bilaterally and no focal motor deficits Psych cooperative Appearance: appropriate Assessment & Plan Assessment/Plan (1) Debility: (2) S/P CABG x 2: (3) History of aortic aneurysm repair: (4) Acute respiratory failure with hypoxia: (5) Orthostatic hypotension: (6) Essential (primary) hypertension: (7) Hyperlipidemia: QUALIFIERS: Hyperlipidemia type: unspecified Qualified Code(s): E78.5 - Hyperlipidemia, unspecified (8) CAD (coronary artery disease): QUALIFIERS: Coronary Disease-Associated Artery/Lesion type: [place] artery [place] vs. transplanted heart: [place] heart Associated angina: without angina Qualified Code(s): I25.10 - Atherosclerotic heart disease of [place] coronary artery without angina pectoris (9) Obesity, morbid, BMI 40.0-49.9: (10) Acute blood loss as cause of postoperative anemia: (11) Sleep-disordered breathing: (12) Bilateral pleural effusion: (13) Compressive atelectasis: (14) Pericardial effusion: PLAN: Small pericardial effusion on transthoracic echocardiogram with no evidence of cardiac tamponade. (15) Cystitis: (16) Cardiac volume overload: (17) Atrial fib/flutter, transient: PLAN: Plan 1. Continue therapy 2. The BUN and creatinine are stable and he denies lightheadedness. Will continue with Lasix 40 mg IV twice daily. 3. Recheck pulse ox on room air at rest and with exertion tomorrow. 4. Recheck a BMP on Wednesday. 5. IF the hypoxemia continues despite thoracentesis and aggressive diuresis will need to consider a left thoracentesis. He may just need to have home O2. He will be scheduled for a sleep study on the day of DC from rehab if feasible. STOP BANG score is 6. 6. Await the results of the urine culture. Start Augmentin empirically until culture resulted to change the antibiotic. Charges/Coding Visit Charges Inpatient E&M: 00321 [facility]osp L1
[2024-05-31 09:07] VITALS: PULSE 80
[2024-05-31] MEDS: 0.9% Saline Lock 10 ML Syringe IV ×2 (09:07→17:07)
[2024-05-31] MEDS: Metoprolol(XL)Succ 50 MG Tablet PO ×2 (09:07→20:09)
[2024-05-31] MEDS: Senna/Docusate Sodium 1 Tablet 2 TABLET PO ×2 (09:07→20:09)
[2024-05-31] MEDS: amLODIPine 5 MG Tablet PO (09:07)
[2024-05-31] MEDS: Aspirin E.C. 81 MG Tablet PO (09:07)
[2024-05-31] MEDS: Amox/Clavulanate 500 MG Tablet PO ×2 (14:32→20:07)
[2024-05-31 17:26] VITALS: BP 147/79; PULSE 82; RESP 18; TEMP 36.5; O2SAT 94
[2024-05-31 20:05] VITALS: BP 139/77; PULSE 80
[2024-05-31] MEDS: Atorvastatin Calcium 80 MG Tablet PO (20:08)
[2024-05-31 20:09] VITALS: PULSE 80
[2024-05-31] MEDS: Doxepin Hydrochloride 10 MG Capsule PO (20:09)
[2024-05-31] MEDS: Ezetimibe 10 MG Tablet PO (20:09)
[2024-06-01 06:00] VITALS: BP 154/80; PULSE 78; RESP 16; TEMP 36.7; O2SAT 96; BMI 41.5
[2024-06-01] MEDS: Amox/Clavulanate 500 MG Tablet PO ×3 (06:29→21:13)
[2024-06-01] MEDS: Sodium Chloride 0.65% 1 SPRAY SPRAY.BTL 2 SPRAY NASAL ×3 (06:29→21:18)
[2024-06-01 07:59] VITALS: O2SAT 96
[2024-06-01] MEDS: Senna/Docusate Sodium 1 Tablet 2 TABLET PO ×2 (08:09→21:13)
[2024-06-01] MEDS: amLODIPine 5 MG Tablet PO (08:09)
[2024-06-01 08:10] VITALS: PULSE 78
[2024-06-01] MEDS: Metoprolol(XL)Succ 50 MG Tablet PO ×2 (08:10→21:15)
[2024-06-01] MEDS: Multivitamins,Therapeutic Tablet 1 TABLET PO (08:10)
[2024-06-01] MEDS: Amiodarone 200 MG Tablet 400 MG PO ×2 (08:10→21:13)
[2024-06-01] MEDS: Potassium Chloride Oral Tablet 20 MEQ PO ×2 (08:10→17:20)
[2024-06-01] MEDS: Enoxaparin 40 MG/0.4 ML Syringe SC ×2 (08:10→21:13)
[2024-06-01] MEDS: Aspirin E.C. 81 MG Tablet PO (08:10)
[2024-06-01 08:46] VITALS: O2SAT 96
--- NOTE | 2024-06-01 09:53 | PN_ITS ---
Subjective Subjective Augmentin 2/7 for cystitis due to Proteus Mirabilis. Cystitis is catheter related. Afebrile Blood pressure over the past 24 hours has ranged from 139/77 to 160/84. Heart rate is ranged from 78-82. Fluid balance yesterday was -2190. Weight today is 289 pounds and 11 ounces which is down from 293 pounds and 3 ounces yesterday. Urine culture is positive for greater than 100,000 colonies of Proteus mirabilis which is pansensitive except for resistance to nitrofurantoin. Will continue Augmentin. Still SOB with exertion but no orthopnea or PND. Denies CP. Pain is controlled. Sleeping better with doxepin. No calf pain. Objective Data Objective Data Vital Signs: Vital Signs Temp Pulse Resp BP Pulse Ox O2 Del Method O2 Flow Rate 98.0 F 78 16 154/80 H 96 Nasal Cannula 2 06/01/24 06:00 06/01/24 08:10 06/01/24 06:00 06/01/24 06:00 06/01/24 08:46 06/01/24 08:46 06/01/24 08:46 Oxygen Flow Rate (L/min) 2 Oxygen Delivery Method Nasal Cannula Weight: 289 lb 10.998 oz Body Mass Index (BMI) 41.5 Intake & Output: Intake and Output for Last 24 Hours 05/30/24 05/31/24 06/01/24 23:59 23:59 23:59 Intake Total 830 / 830 720 / 720 120 / 120 Output Total 5600 / 5600 2750 / 2750 600 / 600 Balance -4770 / -4770 -2029 / -2030 -480 / -480 Lab / Micro Data 05/29/24 05:24 06/02/24 03:15 Micro: Microbiology 05/30/24 11:54 Urine Catheter - Catheter Urine Culture - Final Proteus mirabilis 05/27/24 04:45 Stool Stool Occult Blood (NORBERTO) - Final Physical Exam Const alert Resp Resp Narrative: much better air exchange in the R base. Still with diminished BS's in the left base. No crackles. No conversational dyspnea at rest. Tachypneic with exertion. No wheezing. Cardio regular rate and regular rhythm Cardio Narrative: no ectopy. heart sounds are distant. GI normal to inspection, nondistended, normoactive bowel sounds and soft to palpation Skin Rashes: no rashes Assessment & Plan Assessment/Plan (1) Debility: (2) S/P CABG x 2: (3) History of aortic aneurysm repair: (4) Acute respiratory failure with hypoxia: (5) Orthostatic hypotension: (6) Essential (primary) hypertension: (7) Hyperlipidemia: QUALIFIERS: Hyperlipidemia type: unspecified Qualified Code(s): E 78.5 - Hyperlipidemia, unspecified (8) CAD (coronary artery disease): QUALIFIERS: Coronary Disease-Associated Artery/Lesion type: [place] artery [place] vs. transplanted heart: [place] heart Associated angina: without angina Qualified Code(s): I25.10 - Atherosclerotic heart disease of [place] coronary artery without angina pectoris (9) Obesity, morbid, BMI 40.0-49.9: (10) Acute blood loss as cause of postoperative anemia: (11) Sleep-disordered breathing: (12) Bilateral pleural effusion: (13) Compressive atelectasis: (14) Pericardial effusion: (15) Cystitis: (16) Cardiac volume overload: (17) Atrial fib/flutter, transient: PLAN: Plan 1. Continue therapy 2. Continue Lasix 40 mg IV twice daily 3. BMP and magnesium ordered for the a.m. 4. Will continue the Davenport catheter 1 more day to allow a few more doses of antibiotics prior to a voiding trial. Charges/Coding Visit Charges Inpatient E&M: 14392 [facility] L1
[2024-06-01] MEDS: guaiFENesin 1,200 MG Tablet 1200 MG PO ×2 (11:00→21:12)
[2024-06-01] MEDS: Furosemide 40 MG/4 ML Vial IV ×2 (11:00→17:20)
[2024-06-01] MEDS: 0.9% Saline Lock 10 ML Syringe IV ×2 (11:00→17:20)
[2024-06-01] MEDS: Lactobacillis Acidophilus 1 CAP PO ×2 (14:04→21:13)
[2024-06-01 17:44] VITALS: BP 176/83; PULSE 80; RESP 18; TEMP 36.6; O2SAT 96
[2024-06-01] MEDS: Doxepin Hydrochloride 10 MG Capsule PO (21:12)
[2024-06-01] MEDS: Atorvastatin Calcium 80 MG Tablet PO (21:12)
[2024-06-01] MEDS: Ezetimibe 10 MG Tablet PO (21:12)
[2024-06-01 21:15] VITALS: BP 150/69; PULSE 68
[2024-06-02] VITALS (9 sets, daily range): BP systolic 123–154; BP diastolic 66–75; PULSE 66–70; RESP 16–18; TEMP 37.1; O2SAT 95–100; BMI 41.6
[2024-06-02 04:24] LABS: Anion Gap 9 (5-15); BUN 26 mg/dL (4-19); BUN/Creat Ratio 19.5 RATIO (10-20); Calcium,Total 8.9 mg/dL (7.6-11.0); Carbon Dioxide 28.7 mmol/L (21.0-32.0); Chloride 107 mmol/L (98-108); Creatinine, Serum 1.32 mg/dL (0.70-1.20); EST Glomerular Filtration Rate 57 (>60); Estimated Creatinine Clearance 68.94 ml/min (50-250); Glucose 106 mg/dL (70-99); Magnesium 2.3 mg/dL (1.5-2.2); Potassium 3.4 mmol/L (3.3-5.1); Sodium Level 145 mmol/L (133-145)
[2024-06-02] MEDS: Sodium Chloride 0.65% 1 SPRAY SPRAY.BTL 2 SPRAY NASAL ×3 (05:41→21:26)
[2024-06-02] MEDS: Amox/Clavulanate 500 MG Tablet PO ×3 (05:41→21:24)
[2024-06-02] MEDS: Lactobacillis Acidophilus 1 CAP PO ×3 (05:41→21:25)
[2024-06-02] MEDS: Senna/Docusate Sodium 1 Tablet 2 TABLET PO (07:57)
[2024-06-02] MEDS: guaiFENesin 1,200 MG Tablet 1200 MG PO ×2 (07:57→21:25)
[2024-06-02] MEDS: Enoxaparin 40 MG/0.4 ML Syringe SC ×2 (07:57→21:23)
[2024-06-02] MEDS: Potassium Chloride Oral Tablet 20 MEQ PO (07:58)
[2024-06-02] MEDS: Multivitamins,Therapeutic Tablet 1 TABLET PO (07:58)
[2024-06-02] MEDS: Aspirin E.C. 81 MG Tablet PO (07:58)
[2024-06-02] MEDS: Amiodarone 200 MG Tablet 400 MG PO ×2 (08:01→21:24)
[2024-06-02] MEDS: amLODIPine 5 MG Tablet PO ×2 (08:02→17:07)
[2024-06-02] MEDS: Metoprolol(XL)Succ 50 MG Tablet PO ×2 (08:02→21:25)
[2024-06-02] MEDS: 0.9% Saline Lock 10 ML Syringe IV ×2 (10:18→21:28)
[2024-06-02] MEDS: Furosemide 40 MG/4 ML Vial IV ×2 (10:18→17:05)
--- NOTE | 2024-06-02 16:52 | PCM.PROGNOTE ---
Subjective Subjective Afebrile Vital signs are stable Weight today is 290 pounds and 9 ounces. Fluid balance yesterday was -1480 and today so far it is -1340. Blood pressure over the past 24 hours has ranged from 134/68 to 176/83. Heart rate is within normal limits. Oxygen saturation has ranged from 96-98 over the past 48 hours with 2 L of nasal O2. All lab from today was personally reviewed. Creatinine is stable at 1.32 and the BUN is stable at 26. Sodium is stable at 145. Potassium is mildly decreased at 3.4 today. GFR is stable at 57. Magnesium is normal at 2.3. Tells me that his breathing is much better. Denies orthopnea. Still desaturates with activity. COntinues to diureses well. Denies lightheadedness, vertigo, chest pain, palpitations, shortness of breath at rest, cough, nausea/vomiting/abdominal pain, calf pain. Objective Data Objective Data Vital Signs: Vital Signs Temp Pulse Resp BP Pulse Ox O2 Del Method O2 Flow Rate 98.8 F 70 18 134/68 H 98 Room Air 2 06/02/24 05:40 06/02/24 08:02 06/02/24 05:40 06/02/24 08:02 06/02/24 14:34 06/02/24 10:00 06/02/24 14:34 Oxygen Flow Rate (L/min) 2 Oxygen Delivery Method Room Air Weight: 290 lb 9.108 oz Body Mass Index (BMI) 41.6 Intake & Output: Intake and Output for Last 24 Hours 05/31/24 06/01/24 06/02/24 23:59 23:59 23:59 Intake Total 720 / 720 720 / 720 960 / 960 Output Total 2750 / 2750 2200 / 2200 2300 / 2300 Balance -2030 / -2030 -1480 / -1480 -1340 / -1340 Lab / Micro Data 06/05/24 05:35 06/05/24 05:35 Labs: Laboratory Results - last 24 hr 06/02/24 03:15: Sodium 145, Potassium 3.4, Chloride 107, Carbon Dioxide 28.7, Anion Gap 9, BUN 26 H, Creatinine 1.32 H, Estim Creat Clear Calc 68.94, Est GFR (MDRD) Non-Af 57 L, BUN/Creatinine Ratio 19.5, Glucose 106 H, Calcium 8.9, Magnesium 2.3 H Micro: Microbiology 05/30/24 11:54 Urine Catheter - Catheter Urine Culture - Final Proteus mirabilis 05/27/24 04:45 Stool Stool Occult Blood (NORBERTO) - Final Physical Exam Const alert Resp Resp Narrative: much better air exchange in the R base. Still with diminished BS's in the left base. No crackles. No conversational dyspnea at rest. Tachypneic with exertion. No wheezing. TAchypneic with exertion even with oxygen on. Cardio regular rate and regular rhythm Cardio Narrative: no ectopy. heart sounds are distant. GI normal to inspection, nondistended, normoactive bowel sounds and soft to palpation Extremity no calf tenderness Extremity Narrative: the edema in the thighs has resolved. No edema of the flanks. Edema now is limited to the distal LE's. Skin Rashes: no rashes Wound Narrative: All incisions are intact with no dehiscence and no yisel-incisional erythema. No significant swelling around any of the incisions. No DC. Neuro CN's II-XII intact bilaterally and no focal motor deficits Neuro Narrative: Generalized weakness. Assessment & Plan Assessment/Plan (1) Debility: (2) S/P CABG x 2: (3) History of aortic aneurysm repair: (4) Acute respiratory failure with hypoxia: (5) Orthostatic hypotension: (6) Essential (primary) hypertension: (7) Hyperlipidemia: QUALIFIERS: Hyperlipidemia type: unspecified Qualified Code(s): E78.5 - Hyperlipidemia, unspecified (8) CAD (coronary artery disease): QUALIFIERS: Coronary Disease-Associated Artery/Lesion type: [place] artery [place] vs. transplanted heart: [place] heart Associated angina: without angina Qualified Code(s): I25.10 - Atherosclerotic heart disease of [place] coronary artery without angina pectoris (9) Obesity, morbid, BMI 40.0-49.9: (10) Acute blood loss as cause of postoperative anemia: (11) Sleep-disordered breathing: (12) Bilateral pleural effusion: (13) Compressive atelectasis: (14) Pericardial effusion: (15) Cystitis: (16) Cardiac volume overload: (17) Atrial fib/flutter, transient: PLAN: Plan 1. Continue therapy 2. Check a pulse ox on room air at rest today. Check a pulse ox on room air with exertion tomorrow with physical therapy 3. Continue Lasix 40 mg IV twice daily 4. Recheck a CBC and a BMP on Wednesday 5. Given extra dose of potassium chloride 40 mEq today and increase the daily potassium to 20 mEq 3 times daily. 6. Discontinue the Davenport catheter for a voiding trial in the a.m. Charges/Coding Visit Charges Inpatient E&M: 88622 Sub[facility] Hosp L1
[2024-06-02] MEDS: Potassium Chloride Oral Tablet 20 MEQ 40 MEQ PO (17:07)
[2024-06-02] MEDS: Doxepin Hydrochloride 10 MG Capsule PO (21:25)
[2024-06-02] MEDS: Atorvastatin Calcium 80 MG Tablet PO (21:25)
[2024-06-02] MEDS: Ezetimibe 10 MG Tablet PO (21:26)
[2024-06-03 06:00] VITALS: BP 143/63; PULSE 66; RESP 18; TEMP 36.6; O2SAT 95; BMI 41.0
[2024-06-03] MEDS: Lactobacillis Acidophilus 1 CAP PO ×3 (06:10→20:45)
[2024-06-03] MEDS: Sodium Chloride 0.65% 1 SPRAY SPRAY.BTL 2 SPRAY NASAL ×3 (06:10→20:46)
[2024-06-03] MEDS: Amox/Clavulanate 500 MG Tablet PO ×3 (06:10→20:45)
[2024-06-03 06:50] VITALS: O2SAT 96
--- NOTE | 2024-06-03 06:51 | CPS ---
Pt was on RA when this RT came into the room. Pt was 88%, RT placed pt back on NC 2L
[2024-06-03] MEDS: Amiodarone 200 MG Tablet 400 MG PO ×2 (08:54→20:45)
[2024-06-03] MEDS: Multivitamins,Therapeutic Tablet 1 TABLET PO (08:54)
[2024-06-03 08:55] VITALS: BP 128/60; PULSE 72
[2024-06-03] MEDS: Enoxaparin 40 MG/0.4 ML Syringe SC ×2 (08:55→20:45)
[2024-06-03] MEDS: guaiFENesin 1,200 MG Tablet 1200 MG PO ×2 (08:55→20:47)
[2024-06-03] MEDS: Potassium Chloride Oral Tablet 20 MEQ PO ×3 (08:55→17:07)
[2024-06-03] MEDS: Aspirin E.C. 81 MG Tablet PO (08:55)
[2024-06-03] MEDS: Metoprolol(XL)Succ 50 MG Tablet PO ×2 (08:55→20:46)
[2024-06-03] MEDS: amLODIPine 10 MG Tablet PO (08:57)
[2024-06-03] MEDS: Furosemide 40 MG/4 ML Vial IV ×2 (08:59→17:06)
[2024-06-03] MEDS: 0.9% Saline Lock 10 ML Syringe IV ×2 (09:06→17:07)
--- NOTE | 2024-06-03 10:10 | NS ---
Pt is on 1200mL/day fluid restriction (dietary 600mL/day and nursing 600mL/day) and ordered flavored Yunior 2 times per day w/ meals. Spoke to GINGER Duarte--will send flavored Yunior packets to floor labeled for pt and nursing will mix and administer between meals so, that pt can still receive something to drink with meal trays. Possibly consider liberalizing FR to 1500mL/day as medically able, Felicia MILES aware. Cindi Chapa, MS, RD, LD
[2024-06-03] MEDS: Juven (unflavored) Packet 1 PACKET PO (17:07)
[2024-06-03 18:00] VITALS: BP 127/58; PULSE 71; RESP 16; TEMP 36.8; O2SAT 91
[2024-06-03 20:46] VITALS: BP 138/66; PULSE 74
[2024-06-03] MEDS: Ezetimibe 10 MG Tablet PO (20:46)
[2024-06-03] MEDS: Atorvastatin Calcium 80 MG Tablet PO (20:46)
[2024-06-03] MEDS: Doxepin Hydrochloride 10 MG Capsule PO (20:46)
[2024-06-03 22:00] VITALS: O2SAT 97
[2024-06-04 04:45] VITALS: BP 136/63; PULSE 72; RESP 18; TEMP 36.8; O2SAT 92
[2024-06-04] MEDS: Sodium Chloride 0.65% 1 SPRAY SPRAY.BTL 2 SPRAY NASAL ×3 (05:35→21:17)
[2024-06-04] MEDS: Lactobacillis Acidophilus 1 CAP PO ×3 (05:35→21:18)
[2024-06-04] MEDS: Amox/Clavulanate 500 MG Tablet PO ×3 (05:35→21:18)
[2024-06-04 06:49] VITALS: O2SAT 94
[2024-06-04 07:00] VITALS: BMI 40.8
[2024-06-04] MEDS: amLODIPine 10 MG Tablet PO (07:47)
[2024-06-04] MEDS: guaiFENesin 1,200 MG Tablet 1200 MG PO ×2 (07:47→21:18)
[2024-06-04] MEDS: Enoxaparin 40 MG/0.4 ML Syringe SC ×2 (07:47→21:18)
[2024-06-04 07:48] VITALS: BP 123/57; PULSE 78
[2024-06-04] MEDS: Multivitamins,Therapeutic Tablet 1 TABLET PO (07:48)
[2024-06-04] MEDS: Amiodarone 200 MG Tablet 400 MG PO ×2 (07:48→21:18)
[2024-06-04] MEDS: Metoprolol(XL)Succ 50 MG Tablet PO ×2 (07:48→21:19)
[2024-06-04] MEDS: Aspirin E.C. 81 MG Tablet PO (07:48)
[2024-06-04] MEDS: Potassium Chloride Oral Tablet 20 MEQ PO ×3 (07:48→17:15)
[2024-06-04] MEDS: Juven (unflavored) Packet 1 PACKET PO ×2 (07:49→17:15)
[2024-06-04] MEDS: 0.9% Saline Lock 10 ML Syringe IV ×2 (07:51→17:16)
[2024-06-04] MEDS: Furosemide 40 MG/4 ML Vial IV ×2 (07:57→17:16)
[2024-06-04 11:56] LABS: Anion Gap 12 (5-15); BUN 30 mg/dL (4-19); BUN/Creat Ratio 23.1 RATIO (10-20); Calcium,Total 8.8 mg/dL (7.6-11.0); Carbon Dioxide 26.7 mmol/L (21.0-32.0); Chloride 104 mmol/L (98-108); EST Glomerular Filtration Rate 58 (>60); Estimated Creatinine Clearance 69.31 ml/min (50-250); Glucose 107 mg/dL (70-99); Potassium 3.6 mmol/L (3.3-5.1); Sodium Level 143 mmol/L (133-145)
[2024-06-04 18:00] VITALS: BP 118/61; PULSE 68; RESP 17; TEMP 36.6; O2SAT 92
[2024-06-04] MEDS: Atorvastatin Calcium 80 MG Tablet PO (21:18)
[2024-06-04] MEDS: Senna/Docusate Sodium 1 Tablet 2 TABLET PO (21:18)
[2024-06-04 21:19] VITALS: BP 118/58; PULSE 67
[2024-06-04] MEDS: Ezetimibe 10 MG Tablet PO (21:19)
[2024-06-04] MEDS: Doxepin Hydrochloride 10 MG Capsule PO (21:19)
[2024-06-05 05:48] LABS: Hematocrit 31.3 % (40-54); Hemoglobin 9.8 g/dL (13.0-16.5); Mean Corp Hgb Conc 31.3 g/dL (32-36); Mean Corpuscular Hgb 29.9 pg (27.0-32.0); Mean Corpuscular Volume 95.4 fL (80-94); Platelet Count 398 K/mm3 (150-450); RBC Distribution Width CV 14.8 % (11.6-14.6); RBC Distribution Width SD 50.8 fl (35.1-43.9); Red Blood Count 3.28 M/mm3 (4.6-6.2); White Blood Count 7.4 K/mm3 (4.4-11.0)
[2024-06-05 06:00] VITALS: BMI 40.9
[2024-06-05] MEDS: Sodium Chloride 0.65% 1 SPRAY SPRAY.BTL 2 SPRAY NASAL ×3 (06:18→21:25)
[2024-06-05] MEDS: Lactobacillis Acidophilus 1 CAP PO ×3 (06:18→21:24)
[2024-06-05] MEDS: Amox/Clavulanate 500 MG Tablet PO ×3 (06:18→21:24)
[2024-06-05 06:20] VITALS: BP 140/68; PULSE 65; RESP 18; TEMP 37.3; O2SAT 91
[2024-06-05 06:23] LABS: Anion Gap 10 (5-15); BUN 30 mg/dL (4-19); BUN/Creat Ratio 21.9 RATIO (10-20); Calcium,Total 9.1 mg/dL (7.6-11.0); Carbon Dioxide 26.7 mmol/L (21.0-32.0); Chloride 107 mmol/L (98-108); Creatinine, Serum 1.38 mg/dL (0.70-1.20); EST Glomerular Filtration Rate 54 (>60); Estimated Creatinine Clearance 65.43 ml/min (50-250); Glucose 118 mg/dL (70-99); Potassium 3.5 mmol/L (3.3-5.1); Sodium Level 144 mmol/L (133-145)
[2024-06-05 08:10] VITALS: PULSE 70
[2024-06-05] MEDS: Juven (unflavored) Packet 1 PACKET PO ×2 (08:10→17:38)
[2024-06-05] MEDS: Metoprolol(XL)Succ 50 MG Tablet PO ×2 (08:10→21:28)
[2024-06-05] MEDS: Multivitamins,Therapeutic Tablet 1 TABLET PO (08:11)
[2024-06-05] MEDS: Aspirin E.C. 81 MG Tablet PO (08:11)
[2024-06-05] MEDS: Amiodarone 200 MG Tablet 400 MG PO ×2 (08:11→21:24)
[2024-06-05] MEDS: Potassium Chloride Oral Tablet 20 MEQ PO ×3 (08:11→17:38)
[2024-06-05] MEDS: Senna/Docusate Sodium 1 Tablet 2 TABLET PO ×2 (08:11→21:25)
[2024-06-05] MEDS: Enoxaparin 40 MG/0.4 ML Syringe SC ×2 (08:11→21:24)
[2024-06-05] MEDS: amLODIPine 10 MG Tablet PO (08:11)
[2024-06-05] MEDS: guaiFENesin 1,200 MG Tablet 1200 MG PO ×2 (08:12→21:24)
[2024-06-05] MEDS: Furosemide 40 MG Tablet PO (08:46)
--- NOTE | 2024-06-05 10:18 | PN_ITS ---
Subjective Subjective Rich was seen on team rounds today. Multiple family members participated........in the room or on the phone. #15/ doses of Augmentin given for cystitis. Afebrile VSS -heart rate over the weekend has ranged from 123/57 to 140/68. Heart rate is within normal limits. Maintaining appropriate oxygen saturation on RA - He was 92% on RA at rest today. With ambulation he was 92% on RA and with sit to stands he dropped to 84% but, quickly recovered to above 90% when he sat. Oral intake - FOOD good FLUIDS on fluid restriction. He is incontinent of urine since the Davenport catheter was discontinued Wednesday a.m. Weight today is 285 pounds and 8 ounces which is down from 290 pounds and 9 ounces on 06/02/2024. Discussed with nursing - no problems that need addressed Reviewed the THERAPY notes - this AM walked with [facility] at [facility]. Improved safety with the walker. Walked the whole way from his room to the therapy room today without oxygen and did not desaturate. Feeling like he is doing better with therapy ans starting to feel like he will be OK at home at [place] with some assistance from family. Medication list reviewed. All lab drawn this morning was personally reviewed. White blood cell count is normal at 7.4. Hemoglobin is stable at 9.8. Platelets are within normal limits. Sodium is stable at 144 and the potassium is 3.5. BUN is 30 with a creatinine of 1.38. He was transitioned to 40 mg of Lasix p.o. daily today. Denies shortness of breath at rest. The shortness of breath with exertion has significantly improved. Rare cough now. Denies chest pain, palpitations, lightheadedness, calf pain, dysuria. Remains incontinent of urine. Postvoid residuals x 3 are all less than 120. Overestimates what he can do. He has been set on going home this weekend but, not ready yet in the opinion of myself, therapists and family. He was agreeable to going to TCU for additional therapy at [place] from rehab. He has been incontinent of urine since prostate surgery. Gets up very frequently at night to urinate. Tells me he knows when he needs to have a BM.....sometimes the nurses don't get there in time and he is incontinent. Has been incontinent of stool twice during his stay on rehab per chart review. Objective Data Objective Data Vital Signs: Vital Signs Temp Pulse Resp BP Pulse Ox O2 Del Method O2 Flow Rate 99.1 F 70 18 140/68 H 91 Room Air 2 06/05/24 06:20 06/05/24 08:10 06/05/24 06:20 06/05/24 06:20 06/05/24 06:20 06/05/24 06:20 06/04/24 10:00 Oxygen Flow Rate (L/min) 2 Oxygen Delivery Method Room Air Weight: 285 lb 8 oz Body Mass Index (BMI) 40.9 Intake & Output: Intake and Output for Last 24 Hours 06/03/24 06/04/24 06/05/24 23:59 23:59 23:59 Intake Total 1385 / 1385 1255 / 1255 290 / 290 Output Total 1825 / 1825 Balance -440 / -440 1255 / 1255 290 / 290 Lab / Micro Data 06/05/24 05:35 06/05/24 05:35 Labs: Laboratory Results - last 24 hr 06/04/24 11:30: Sodium 143, Potassium 3.6, Chloride 104, Carbon Dioxide 26.7, Anion Gap 12, BUN 30 H, Creatinine 1.30 H, Estim Creat Clear Calc 69.31, Est GFR (MDRD) Non-Af 58 L, BUN/Creatinine Ratio 23.1 H, Glucose 107 H, Calcium 8.8 06/05/24 05:35: WBC 7.4, RBC 3.28 L, Hgb 9.8 L, Hct 31.3 L, MCV 95.4 H, MCH 29.9, MCHC 31.3 L, RDW Std Deviation 50.8 H, RDW Coeff of Bart 14.8 H, Plt Count 398, MPV 9.0, Sodium 144, Potassium 3.5, Chloride 107, Carbon Dioxide 26.7, Anion Gap 10, BUN 30 H, Creatinine 1.38 H, Estim Creat Clear Calc 65.43, Est GFR (MDRD) Non-Af 54 L, BUN/Creatinine Ratio 21.9 H, Glucose 118 H, Calcium 9.1 Micro: Microbiology 05/30/24 11:54 Urine Catheter - Catheter Urine Culture - Final Proteus mirabilis 04/19/25 04:45 Stool Stool Occult Blood (NORBERTO) - Final Physical Exam Const alert, oriented x3 and no apparent distress Constitutional Narrative: Resting in bed at about 30 degrees and no tachypnea or SOB. General Appearance: cooperative Resp Resp Narrative: Breath sounds are only very mildly diminished in the left base and there is much improved air exchange. No crackles and no wheezes. Not tachypneic, no conversational dyspnea. Cardio regular rate and regular rhythm Cardio Narrative: Rare ectopic. Heart sounds are distant. GI normal to inspection, nondistended, normoactive bowel sounds and soft to palpation Extremity no calf tenderness Extremity Narrative: the edema in the thighs has resolved. No edema of the flanks. Edema now is limited to the ankles, L>R. Skin Rashes: no rashes Wound Narrative: All incisions are intact with no dehiscence and no yisel-incisional erythema. No significant swelling around any of the incisions. No DC. Psych affect normal Psych Narrative: stubborn, overestimates what he can do without assist. Assessment & Plan Assessment/Plan (1) Debility: (2) S/P CABG x 2: (3) History of aortic aneurysm repair: (4) Acute respiratory failure with hypoxia: (5) Orthostatic hypotension: (6) Essential (primary) hypertension: (7) Hyperlipidemia: QUALIFIERS: Hyperlipidemia type: unspecified Qualified Code(s): E 78.5 - Hyperlipidemia, unspecified (8) CAD (coronary artery disease): QUALIFIERS: Coronary Disease-Associated Artery/Lesion type: [place] artery [place] vs. transplanted heart: [place] heart Associated angina: without angina Qualified Code(s): I25.10 - Atherosclerotic heart disease of [place] coronary artery without angina pectoris (9) Obesity, morbid, BMI 40.0-49.9: (10) Acute blood loss as cause of postoperative anemia: (11) Sleep-disordered breathing: (12) Cystitis: (13) Atrial fib/flutter, transient: (14) Fecal incontinence: (15) Urinary incontinence: PLAN: Plan 1. Continue therapy 2. Continue potassium chloride 20 mEq 3 times daily for today and recheck a potassium in the morning. Can likely start tapering the potassium since we have transitioned him to oral Lasix once daily. 3. Increase the fluid restriction to 1500 cc. 4. Will plan on TCU at [place] from acute rehab. 5. Sleep study post DC 6. discussed using a condom cath at HS.....only for the nights to facilitate better sleep. Charges/Coding Visit Charges Inpatient E&M: 38163 Subs Hosp L2
--- NOTE | 2024-06-05 13:06 | CASEMGMT ---
Social Work IDT met with patient, 2 dtrs and ELIZABETH at bedside, then 2 sons via conference call for Team meeting. Discussed patient's progress in PT/OT/ST/SN. Educated to Medicare approval with DC 06/10. Pt is needing assistance with mobility and ADLs. Pt is incontinent for B&B and is total assist with tasks. SW inquired about plans for DC - if family could provide 24/7 care or if pt to DC to SNF for skilled therapy prior to home. Pt's wishes are to return home at [place] and would figure it out. Children willing to assist, but cannot provide 24/7 care and recognize the need for continued skilled therapy. SW assisted in educating to the risk of returning home too soon, rehospitalizations. Pt improved greatly since admission but has not returned to PLOF. SW gave examples of SNFs. ELIZABETH noted TCU is a SNF and pt's friend is the one who opened the unit. IDT agreed TCU is an option. Pt agreeable to TCU, but family agreed to discuss further to finalize plans. SW offered to make referral to determine bed availability. Family agreed. SW explained Medicare skilled benefit and LOS is unknown. Sleep study on 06/16 will be rescheduled until a new DC date is known, if pt does not return home. Explained currently, pt will need a caregiver for the sleep study as well. Answered family's questions. - SW phoned referral to TCU. Will continue to follow. Franci Rosales MSW [employer] CREWMEMBER
[2024-06-05 18:00] VITALS: BP 131/64; PULSE 66; RESP 16; TEMP 37.1; O2SAT 92
[2024-06-05] MEDS: Ezetimibe 10 MG Tablet PO (21:24)
[2024-06-05] MEDS: Atorvastatin Calcium 80 MG Tablet PO (21:24)
[2024-06-05] MEDS: Doxepin Hydrochloride 10 MG Capsule PO (21:25)
[2024-06-05 21:27] VITALS: BP 136/62; PULSE 63
[2024-06-05 21:28] VITALS: PULSE 63
[2024-06-05 22:00] VITALS: PULSE 66; RESP 16
[2024-06-06 05:47] VITALS: BMI 41.3
[2024-06-06] MEDS: Sodium Chloride 0.65% 1 SPRAY SPRAY.BTL 2 SPRAY NASAL ×3 (05:55→22:51)
[2024-06-06] MEDS: Lactobacillis Acidophilus 1 CAP PO ×3 (05:55→22:48)
[2024-06-06] MEDS: Amox/Clavulanate 500 MG Tablet PO ×3 (05:55→22:51)
[2024-06-06 06:00] VITALS: BP 133/71; PULSE 64; RESP 15; TEMP 36.7; O2SAT 92
[2024-06-06 06:12] LABS: Potassium 4.4 mmol/L (3.3-5.1)
[2024-06-06 07:09] VITALS: O2SAT 94
[2024-06-06] MEDS: Juven (unflavored) Packet 1 PACKET PO ×2 (08:02→16:37)
[2024-06-06] MEDS: Amiodarone 200 MG Tablet 400 MG PO ×2 (08:02→22:51)
[2024-06-06] MEDS: amLODIPine 10 MG Tablet PO (08:02)
[2024-06-06] MEDS: Aspirin E.C. 81 MG Tablet PO (08:02)
[2024-06-06] MEDS: Furosemide 40 MG Tablet PO (08:02)
[2024-06-06 08:03] VITALS: BP 133/71; PULSE 64
[2024-06-06] MEDS: Enoxaparin 40 MG/0.4 ML Syringe SC ×2 (08:03→22:48)
[2024-06-06] MEDS: Senna/Docusate Sodium 1 Tablet 2 TABLET PO ×2 (08:03→22:48)
[2024-06-06] MEDS: Metoprolol(XL)Succ 50 MG Tablet PO ×2 (08:03→22:50)
[2024-06-06] MEDS: Multivitamins,Therapeutic Tablet 1 TABLET PO (08:03)
[2024-06-06] MEDS: guaiFENesin 1,200 MG Tablet 1200 MG PO ×2 (08:04→22:51)
[2024-06-06] MEDS: Potassium Chloride Oral Tablet 20 MEQ PO ×3 (08:04→16:38)
[2024-06-06 09:25] VITALS: O2SAT 96
[2024-06-06 17:26] VITALS: BP 139/67; PULSE 66; RESP 16; TEMP 36.2; O2SAT 95
[2024-06-06] MEDS: Doxepin Hydrochloride 10 MG Capsule PO (22:48)
[2024-06-06] MEDS: Ezetimibe 10 MG Tablet PO (22:48)
[2024-06-06] MEDS: Atorvastatin Calcium 80 MG Tablet PO (22:49)
[2024-06-06 22:50] VITALS: PULSE 72
[2024-06-07] MEDS: Lactobacillis Acidophilus 1 CAP PO ×3 (06:07→20:29)
[2024-06-07] MEDS: Amox/Clavulanate 500 MG Tablet PO (06:07)
[2024-06-07] MEDS: Sodium Chloride 0.65% 1 SPRAY SPRAY.BTL 2 SPRAY NASAL ×3 (06:07→20:30)
[2024-06-07 06:10] VITALS: BP 130/67; PULSE 69; RESP 18; TEMP 36.8; O2SAT 92; BMI 41.1
[2024-06-07] MEDS: Amiodarone 200 MG Tablet 400 MG PO ×2 (08:15→20:30)
[2024-06-07] MEDS: amLODIPine 10 MG Tablet PO (08:15)
[2024-06-07 08:16] VITALS: PULSE 69
[2024-06-07] MEDS: Metoprolol(XL)Succ 50 MG Tablet PO ×2 (08:16→20:28)
[2024-06-07] MEDS: Senna/Docusate Sodium 1 Tablet 2 TABLET PO (08:16)
[2024-06-07] MEDS: Enoxaparin 40 MG/0.4 ML Syringe SC ×2 (08:16→20:30)
[2024-06-07] MEDS: guaiFENesin 1,200 MG Tablet 1200 MG PO ×2 (08:17→20:29)
[2024-06-07] MEDS: Potassium Chloride Oral Tablet 20 MEQ PO ×3 (08:17→17:21)
[2024-06-07] MEDS: Multivitamins,Therapeutic Tablet 1 TABLET PO (08:17)
[2024-06-07] MEDS: Furosemide 40 MG Tablet PO (08:17)
[2024-06-07] MEDS: Juven (unflavored) Packet 1 PACKET PO ×2 (08:17→17:21)
[2024-06-07] MEDS: Aspirin E.C. 81 MG Tablet PO (08:18)
[2024-06-07 09:50] VITALS: O2SAT 91
--- NOTE | 2024-06-07 11:01 | CASEMGMT ---
Social Work SW exchanged several email communications with ELIZABETH. Answering questions on f/u appts, therapy minutes on RU and TCU, insurance coverage with TCU. Children discussed with pt about DC plans and pt agreeable to TCU, with goals to return home. SW notified Sleep Lab to postpone sleep study. SW confirmed admission to TCU 06/09. ELIZABETH appreciative of assistance and care. Plan: DC to TCU 06/09 Franci Rosales FINANCIAL ANALYSIS ADVISOR EMBALMER APPRENTICE
[2024-06-07 17:51] VITALS: BP 138/66; PULSE 69; RESP 18; TEMP 36.4; O2SAT 96
[2024-06-07 20:10] VITALS: BP 150/68; PULSE 66; RESP 17; O2SAT 96
[2024-06-07 20:28] VITALS: BP 150/68; PULSE 66
[2024-06-07] MEDS: Ezetimibe 10 MG Tablet PO (20:29)
[2024-06-07] MEDS: Doxepin Hydrochloride 10 MG Capsule PO (20:30)
[2024-06-07] MEDS: Atorvastatin Calcium 80 MG Tablet PO (20:34)
[2024-06-08 06:00] VITALS: BP 106/70; PULSE 65; RESP 16; TEMP 37.2; O2SAT 95
[2024-06-08] MEDS: Sodium Chloride 0.65% 1 SPRAY SPRAY.BTL 2 SPRAY NASAL ×3 (06:11→20:30)
[2024-06-08] MEDS: Lactobacillis Acidophilus 1 CAP PO ×3 (06:11→20:30)
[2024-06-08 07:33] VITALS: PULSE 65
[2024-06-08] MEDS: Juven (unflavored) Packet 1 PACKET PO ×2 (07:33→16:55)
[2024-06-08] MEDS: Potassium Chloride Oral Tablet 20 MEQ PO ×2 (07:33→09:25)
[2024-06-08] MEDS: Metoprolol(XL)Succ 50 MG Tablet PO ×2 (07:33→20:29)
[2024-06-08] MEDS: amLODIPine 10 MG Tablet PO (07:34)
[2024-06-08] MEDS: Enoxaparin 40 MG/0.4 ML Syringe SC ×2 (07:34→20:28)
[2024-06-08] MEDS: Furosemide 40 MG Tablet PO (07:34)
[2024-06-08] MEDS: Amiodarone 200 MG Tablet 400 MG PO ×2 (07:34→20:28)
[2024-06-08] MEDS: Multivitamins,Therapeutic Tablet 1 TABLET PO (07:34)
[2024-06-08] MEDS: Aspirin E.C. 81 MG Tablet PO (07:35)
[2024-06-08] MEDS: guaiFENesin 1,200 MG Tablet 1200 MG PO ×2 (07:35→20:29)
[2024-06-08 10:00] VITALS: O2SAT 93
--- NOTE | 2024-06-08 13:45 | PN_ITS ---
Subjective Subjective Afebrile VSS -blood pressure over the past 24 hours has ranged from 106/78 to 150/68. Heart rate is within normal limits. Maintaining appropriate oxygen saturation on RA Oral intake - FOOD good FLUIDS fair to good Weight is stable around 286 to 287 pounds. Currently on Lasix 40 mg once daily. Discussed with nursing - no problems that need addressed. does not want to use O2 at night. Incontinent of urine chronically since prostate surgery. Incontinent of stool at times, not all the time. Reviewed the THERAPY notes Medication list reviewed. Tells me he slept well last night. Denies chest pain, shortness of breath at rest, palpitations, nausea/vomiting/abdominal pain, dysuria and calf pain. Dyspnea on exertion is improved. Objective Data Objective Data Vital Signs: Vital Signs Temp Pulse Resp BP Pulse Ox O2 Del Method O2 Flow Rate 98.9 F 65 16 106/70 93 Room Air 2 06/08/24 06:00 06/08/24 07:33 06/08/24 06:00 06/08/24 06:00 06/08/24 10:00 06/08/24 10:00 06/06/24 22:00 Oxygen Flow Rate (L/min) 2 Oxygen Delivery Method Room Air Weight: 286 lb 2.56 oz Body Mass Index (BMI) 41.1 Intake & Output: Intake and Output for Last 24 Hours 06/06/24 06/07/24 06/08/24 23:59 23:59 23:59 Intake Total 1290 / 1690 1284 / 1284 400 / 400 Balance 1290 / 1690 1284 / 1284 400 / 400 Lab / Micro Data 06/05/24 05:35 06/06/24 05:31 Micro: Microbiology 05/30/24 11:54 Urine Catheter - Catheter Urine Culture - Final Proteus mirabilis 05/27/24 04:45 Stool Stool Occult Blood (NORBERTO) - Final Physical Exam Const alert, oriented x3 and no apparent distress General Appearance: cooperative Resp Resp Narrative: Breath sounds are only very mildly diminished in the left base and there is much improved air exchange. No crackles and no wheezes. Not tachypneic, no conversational dyspnea. Breathing with ambulation is much better since diuresis and thoracentesis. Ambulating at A better pace and not gasping for air. Able to ambulate and do therapy without oxygen supplementation now. O2 ordered at night for sleep disordered breathing/suspected PAUL. Cardio regular rate and regular rhythm Cardio Narrative: Rare ectopic. Heart sounds are distant. GI normal to inspection, nondistended, normoactive bowel sounds and soft to palpation Extremity no calf tenderness Extremity Narrative: the edema in the thighs has resolved. No edema of the flanks. Edema is only in the ankles, R>L. General Extremity: Negative for clubbing or cyanosis Skin Rashes: no rashes Wound Narrative: All incisions are intact with no dehiscence and no yisel-incisional erythema. No significant swelling around any of the incisions. No DC. Neuro CN's II-XII intact bilaterally and no focal motor deficits Psych affect normal Psych Narrative: stubborn, overestimates what he can do without assist. Assessment & Plan Assessment/Plan (1) Debility: (2) S/P CABG x 2: (3) History of aortic aneurysm repair: (4) Acute respiratory failure with hypoxia: (5) Orthostatic hypotension: (6) Essential (primary) hypertension: (7) Hyperlipidemia: QUALIFIERS: Hyperlipidemia type: unspecified Qualified Code(s): E 78.5 - Hyperlipidemia, unspecified (8) CAD (coronary artery disease): QUALIFIERS: Coronary Disease-Associated Artery/Lesion type: [place] artery [place] vs. transplanted heart: [place] heart Associated angina: without angina Qualified Code(s): I25.10 - Atherosclerotic heart disease of [place] coronary artery without angina pectoris (9) Obesity, morbid, BMI 40.0-49.9: (10) Acute blood loss as cause of postoperative anemia: (11) Sleep-disordered breathing: (12) Cystitis: (13) Atrial fib/flutter, transient: (14) Fecal incontinence: QUALIFIERS: Fecal incontinence type: unspecified Qualified Code(s): R15.9 - Full incontinence of feces PLAN: intermittent (15) Urinary incontinence: QUALIFIERS: Urinary Incontinence type: other incontinence Q ualified Code(s): N39.498 - Other specified urinary incontinence PLAN: Plan 1. Continue therapy 2. BMP in the a.m. 3. Transfer to TCU tomorrow Charges/Coding Visit Charges Inpatient E&M: 83297 [facility] Hosp L1
--- NOTE | 2024-06-08 13:54 | TREXTCAR_ITS ---
Diet Diet Order/Speech Therapy: 05/26/24 14:47 Diet: Cardiac - Heart Healthy Dietary Modifications:: Consistent Carbohydrate Type of Dietary Supplement:: Yunior Fluid restriction:: 1500 mL Diet Comments: Yunior 2x per day [id number] Routine Orders/Code Status Enema Type: [place] Enema Frequency: Daily PRN Suppository Type: Dulcolax 10mg Suppository Frequency: Daily PRN Change [place] Catheter: Condom cath at night Code Status: DNRCC-A (with intubation) DC O2, CPAP, BIPAP needs Home O2 Discharge instructions: Yes Type of respiratory needs?: Oxygen Oxygen frequency: With Sleeping (2 LPM) Oxygen liters per minute when sleepin Wound(s) Bilateral Arms: Wound Type: Abrasion Abdomen: Wound Type: Abrasion Midline Sternum: Wound Type: Surgical Incision Upper Abdomen: Wound Type: Surgical Incision Right Neck: Wound Type: Surgical Incision Left Groin: Wound Type: Surgical Incision Left Inner Calf: Wound Type: Surgical Incision Bilateral Hands: Wound Type: Abrasion Therapies Weight Bearing: Full weight bearing Physical Therapy: Eval and Treat Occupational Therapy: Eval and Treat Problem/Diagnosis (1) Debility: Status: Acute Code(s): R53.81 - Other malaise (2) S/P CABG x 2: Status: Acute Code(s): Z95.1 - Presence of aortocoronary bypass graft (3) History of aortic aneurysm repair: Status: Acute Code(s): Z98.890 - Other specified postprocedural states; Z86.79 - Personal history of other diseases of the circulatory system Comment: with a 30 mm dacryon woven graft (4) Acute respiratory failure with hypoxia: Status: Acute Code(s): J96.01 - Acute respiratory failure with hypoxia Plan: Due to cardiac volume OL with BL pleural effusions and pulmonary edema. Lost approximately 27 lbs with diuresis and R thoracentesis. (5) Orthostatic hypotension: Status: Resolved Code(s): I95.1 - Orthostatic hypotension (6) Essential (primary) hypertension: Status: Chronic Code(s): I10 - Essential (primary) hypertension (7) Hyperlipidemia: Status: Chronic Code(s): E78.5 - Hyperlipidemia, unspecified (8) CAD (coronary artery disease): Status: Chronic Code(s): I25.10 - Atherosclerotic heart disease of [place] coronary artery without angina pectoris (9) Obesity, morbid, BMI 40.0-49.9: Status: Chronic Code(s): E66.01 - Morbid (severe) obesity due to excess calories (10) Acute blood loss as cause of postoperative anemia: Status: Acute Code(s): D62 - Acute posthemorrhagic anemia Plan: Stable at DC from rehab. (11) Sleep-disordered breathing: Status: Chronic Code(s): G47.30 - Sleep apnea, unspecified (12) Cystitis: Status: Resolved Code(s): N30.90 - Cystitis, unspecified without hematuria (13) Atrial fib/flutter, transient: Status: Resolved Code(s): I48.91 - Unspecified atrial fibrillation; I48.92 - Unspecified atrial flutter Plan: This occurred post op. Has been in NSR while on rehab. (14) Fecal incontinence: Status: Chronic Code(s): R15.9 - Full incontinence of feces Plan: intermittent (15) Urinary incontinence: Status: Chronic Code(s): R32 - Unspecified urinary incontinence Plan TCU on 06/09/24 for additional therapy/strengthening prior to returning home. OP sleep study. Allergies/Procedures Done in Hospital Allergies No Known Allergies Allergy (Verified 05/04/24 08:37) Procedures: 2-D Echocardiogram (Transthoracic echocardiogram on 05/26/2024 with a 55% ejection fraction and a small, less than 1 cm, pericardial effusion with no evidence of cardiac tamponade.) Type of Care/Length of Stay Estimated LOS: Convalescent Care Less Than 30 days Type of Care Needed: Skilled Rehab Potential: Good Prognosis: Good Additional Orders/Day of Discharge H&P will serve as current which was dated: 06/24/24 Day of Discharge: 06/09/24 Dietary and Speech Recommendations Dietitian Recommendations/Changes: Continue cardiac, consistent carbohydrate, 1500 ml fluid restriction, with yunior BID with breakfast and dinner. Will monitor weight trends. Follow Up Care Please follow up with your Primary Care Physician in: Dr. Kenn Soto following DC from TCU Please Follow Up With: cardiology Please Follow Up With: Cardiothoracic surgery Discharge Plan Admission Admit Date/Time: 05/25/24 14:57 Primary Reason for Your Visit: Debility due to CABG and ascending aorta replacement Attending Provider: Alyce Whelan Primary Care Provider: Kenn Soto Consulting Providers: Jacob Luciano Instructions Additional Instructions / Restrictions: 1. Needs a formal overnight sleep study in the sleep lab going forward. Discharge Orders/Prescriptions Prescriptions: New multivitamin Tablet 1 tab PO DAILYCM Qty: 0 0RF amiodarone 200 mg Tablet 200 mg PO DAILY Qty: 0 0RF doxepin 10 mg Capsule 10 mg PO QHS Qty: 0 0RF acetaminophen 500 mg Tablet 1,000 mg PO Q8 PRN (Reason: Headache/Fever (T>100f)) Qty: 0 0RF magnesium hydroxide 400 mg/5 mL Suspension 30 ml PO X1 PRN (Reason: Constipation) Qty: 0 0RF amlodipine 10 mg Tablet 10 mg PO DAILY Qty: 0 0RF bisacodyl 10 mg Suppository 10 mg CO X1 PRN (Reason: Constipation) Qty: 0 0RF Yunior (with collagen) 7-7-1.5 gram Powder In Packet 1 packet PO BIDCM Qty: 0 0RF sennosides-docusate sodium [Stimulant Laxative Plus] 8.6-50 mg Tablet 2 tab PO BID PRNQty: 0 0RF [place] Nasal 0.65 % Aerosol,[place] 2 spray NASAL TID Qty: 0 0RF potassium chloride 20 mEq tablet extended release 20 meq PO BID Qty: 1 0RF Continued aspirin [Adult Aspirin Regimen] 81 mg tablet,delayed release (DR/EC) 81 mg PO DAILY atorvastatin 40 mg tablet 80 mg PO QHS furosemide [Lasix] 40 mg tablet 40 mg PO DAILY oxycodone 5 mg tablet 5 mg PO Q6H PRN (Reason: pain 7-10) metoprolol succinate [Toprol XL] 50 mg tablet extended release 24 hr 50 mg PO BID ezetimibe [Zetia] 10 mg tablet 10 mg PO QHS Discontinued multivitamin Tablet 1 tab PO QDAY doxazosin 8 mg tablet 8 mg PO BID acetaminophen 500 mg capsule 1,000 mg PO Q8H amlodipine 10 mg tablet 5 mg PO QDAY No Action amiodarone 400 mg tablet 400 mg PO BID Referrals / Follow Up: Ze Mcneil [Other] - 06/13/24 11:30 am Kenn Soto MD [Primary Care Provider] - 05/07/25 10:00 am Disposition Disposition (needs filled in before D/C Order can be placed): [facility] (7) Hyperlipidemia Qualifiers: Hyperlipidemia type: unspecified Qualified Code(s): E78.5 - Hyperlipidemia, unspecified (8) CAD (coronary artery disease) Qualifiers: Associated angina: without angina Coronary Disease-Associated Artery/Lesion type: [place] artery [place] vs. transplanted heart: [place] heart Qualified Code(s): I25.10 - Atherosclerotic heart disease of [place] coronary artery without angina pectoris (14) Fecal incontinence Qualifiers: Fecal incontinence type: unspecified Qualified Code(s): R15.9 - Full incontinence of feces (15) Urinary incontinence Qualifiers: Urinary Incontinence type: other incontinence Qualified Code(s): N39.498 - Other specified urinary incontinence
--- NOTE | 2024-06-08 14:19 | PCM.DC.SUM ---
Providers Date of Admission: 05/25/24 Date of Discharge: 06/09/24 Primary Care Physician: Dr. Kenn Soto MD Consultations 05/26/24 14:57 Consult: Cardiology Routine Consulting Provider: Jacob Luciano Reason for Consult: pericardial effusion/BL pleural effusions EMERGENT Consult: No MD Notified: Yes Date Notified: 05/26/24 Time Notified: 14:58 Method of Notification: Text Reason For Visit: CABG Diagnosis Discharge Diagnosis (1) Debility: Status: Acute Code(s): R53.81 - Other malaise (2) S/P CABG x 2: Status: Acute Code(s): Z95.1 - Presence of aortocoronary bypass graft (3) History of aortic aneurysm repair: Status: Acute Code(s): Z98.890 - Other specified postprocedural states; Z86.79 - Personal history of other diseases of the circulatory system Plan: Ascending aorta. (4) Acute respiratory failure with hypoxia: Status: Resolved Code(s): J96.01 - Acute respiratory failure with hypoxia Plan: Due to cardiac volume OL with BL pleural effusions and pulmonary edema. Lost approximately 27 lbs with diuresis and R thoracentesis. (5) Orthostatic hypotension: Status: Resolved Code(s): I95.1 - Orthostatic hypotension (6) Essential (primary) hypertension: Status: Chronic Code(s): I10 - Essential (primary) hypertension Plan: Systolic BP is consistently elevated. Amlodipine was increased to 10 mg daily from 5 mg daily and this helped some but, the systolic is still > 140. This may be related to pain. It is only mildly elevated now. Cardiology can adjust antihypertensives as an OP if it remains elevaed. (7) Hyperlipidemia: Status: Chronic Code(s): E78.5 - Hyperlipidemia, unspecified Qualifiers: Hyperlipidemia type: unspecified Qualified Code(s): E78.5 - Hyperlipidemia, unspecified (8) CAD (coronary artery disease): Status: Chronic Code(s): I25.10 - Atherosclerotic heart disease of [place] coronary artery without angina pectoris Qualifiers: Associated angina: without angina Coronary Disease-Associated Artery/Lesion type: [place] artery [place] vs. transplanted heart: [place] heart Qualified Code(s): I25.10 - Atherosclerotic heart disease of [place] coronary artery without angina pectoris (9) Obesity, morbid, BMI 40.0-49.9: Status: Chronic Code(s): E66.01 - Morbid (severe) obesity due to excess calories (10) Acute blood loss as cause of postoperative anemia: Status: Acute Code(s): D62 - Acute posthemorrhagic anemia Plan: Stable at MO from rehab. HGB prior to Dc is 9.8. (11) Sleep-disordered breathing: Status: Chronic Code(s): G47.30 - Sleep apnea, unspecified Plan: Abnormal overnight trending pulse ox was abnormal. STOP BANG score is 7 out a possible 8 (he lives alone and no has observed him stop breathing when sleeping). This puts him at high risk for PAUL. He should have a overnight sleep study going forward. The sleep lab has all the paperwork needed to do the test. Would try and schedule for the night he is to be discharged from TCU. He is to be wearing O2 2 LPM any time he is sleeping. (12) Cystitis: Status: Resolved Code(s): N30.90 - Cystitis, unspecified without hematuria Plan: Due to Proteus Mirabilis, possibly related to Davenport catheter. (13) Atrial fib/flutter, transient: Status: Resolved Code(s): I48.91 - Unspecified atrial fibrillation; I48.92 - Unspecified atrial flutter Plan: This occurred post op. Has been in NSR while on rehab. He will continue Amiodarone and follow up with cardiology. (14) Fecal incontinence: Status: Chronic Code(s): R15.9 - Full incontinence of feces Qualifiers: Fecal incontinence type: unspecified Qualified Code(s): R15.9 - Full incontinence of feces Plan: intermittent. (15) Urinary incontinence: Status: Chronic Code(s): R32 - Unspecified urinary incontinence Qualifiers: Urinary Incontinence type: other incontinence Qualified Code(s): N39.498 - Other specified urinary incontinence Plan Transferred to TCU on 06/09/24 for additional therapy/strengthening prior to returning home. OP sleep study at MO from TCU. Ordered O@ supplementation at 2 LPM any time he is sleeping. Medications at Discharge Home Medications aspirin 81 mg tablet,delayed release (Adult Aspirin Regimen) 81 mg PO DAILY heart health 05/02/24 atorvastatin 40 mg tablet 80 mg PO QHS cholesterol 05/02/24 amiodarone 400 mg tablet 400 mg PO BID BP 05/25/24 ezetimibe 10 mg tablet (Zetia) 10 mg PO QHS cholesterol 05/25/24 furosemide 40 mg tablet (Lasix) 40 mg PO DAILY Fluid retention 05/25/24 metoprolol succinate 50 mg tablet,extended release 24 hr (Toprol XL) 50 mg PO BID BP 05/25/24 oxycodone 5 mg tablet 5 mg PO Q6H PRN pain 7-10 05/25/24 acetaminophen 500 mg tablet 1,000 mg (2 x 500 mg) PO Q8 PRN Headache/Fever (T>100f) #0 tabs 06/08/24 amiodarone 200 mg tablet 200 mg PO DAILY #0 tabs 06/08/24 amlodipine 10 mg tablet 10 mg PO DAILY #0 tabs 06/08/24 arginine 7 gram-glutam 7 gram-CaHMB 1.5 miic-epkpu-pn-min oral pwd pkt (Yunior (with collagen)) 1 packet PO BIDCM #0 ea 06/08/24 bisacodyl 10 mg rectal suppository 10 mg AZ X1 PRN Constipation #0 ea 06/08/24 doxepin 10 mg capsule 10 mg PO QHS #0 caps 06/08/24 magnesium hydroxide 400 mg/5 mL oral suspension 30 ml PO X1 PRN Constipation #0 mL 06/08/24 multivitamin 1 tab PO DAILYCM #0 tabs 06/08/24 sennosides 8.6 mg-docusate sodium 50 mg tablet (Stimulant Laxative Plus) 2 tab PO BID PRN #0 tabs 06/08/24 sodium chloride 0.65 % nasal spray aerosol (Deep Sea Nasal) 2 spray NASAL TID #0 mL 06/08/24 potassium chloride 20 mEq tablet,extended release 20 meq PO BID #1 TAB 06/09/24 Hospital Course Operations - (CABG x2 vessels and replacement of ascending aortic aneurysm. ) Procedures 2-D Echocardiogram (EF of 55% with small, less than 1 cm, pericardial effusion) and Thoracentesis (05/30/2024..... Removed 1130 cc from the right chest) Summary of Care Provided Minutes Spent on Discharge: 36 Hospital Course: CAMERON HIGGINS, is a 73 YO M with a PMH of HTN, prostate CA (S/P prostatectomy), HTN, HLD, CAD, osteoarthritis, prediabetes (recent hemoglobin A1c was 6%), insomnia and morbid obesity. He underwent a cardiac cath by Dr. Olmedo on 05/08/24 for a markedly elevated calcium score. The catheterization showed severe triple-vessel calcification and severe two-vessel coronary artery disease with a preserved ejection fraction. The left anterior descending was totally occluded in the proximal segment after first diagonal branch which had moderately severe disease. The left main had mild luminal irregularities less than 30%. The circumflex artery had luminal irregularities with up to 50% stenosis and the RCA had a 95% mid segment occlusion. Echocardiogram showed moderate concentric left ventricular hypertrophy with normal left ventricular systolic function. There was stage I diastolic dysfunction with no regional wall motion abnormalities. The atria were of normal size and the right ventricle was normal with normal systolic function. There was no significant valvular heart disease. He was referred to cardiothoracic surgery. On 05/16/2024 he had a CABG x 3 vessels with BELL to LAD, saphenous vein graft to the diagonal and saphenous vein graft to PDA. He also had an ascending aorta replacement with a 30 mm dacryon woven graft. Postop complications included delirium and acute blood loss anemia. He was transfused with 1 unit of packed red blood cells for hemoglobin of 6.9 and it came up to 7.5. He also experienced acute renal failure with creatinine peaking at 1.61. He had a Davenport catheter while at [facility]. He also had atrial fibrillation postoperatively which resolved prior to discharge. On report from the previous hospital nursing was told he sundown's. He was transferred to the acute inpatient rehab unit at [facility] on 05/25/2024 for 3 hours of therapy daily to restore function/independence at or near his level prior to the surgery. He was living alone prior to surgery. Using a cane for ambulation at times. Independent with ADL's. At presentation to rehab Rich was in acute CHF with BL pleural effusions. He had acute respiratory failure with hypoxemia. CTA of the chest was obtained to r/o PE. No large central pulmonary emboli were identified. There were moderate bilateral pleural effusions and a moderate-sized pericardial effusion was reported. Cardiology was consulted for pericardial effusion and an echocardiogram was done and showed a 55% ejection fraction with a small pericardial effusion, less than 1 cm. He was started on Lasix 40 mg IV twice daily and diuresed well but, he was still requiring supplemental oxygen and was very tachypnea with just minimal exertion. He had poor exercise tolerance. CXR still showed a moderate R pleural effusion. On physical examination was a good right lower lobe secondary to ectasis related to the pleural effusion. He went for a thoracentesis on 05/30/2024 and 1130 mL of fluid was removed. Follow-up chest x-ray showed marked improvement in the right pleural effusion. dyspnea improved significantly following thoracentesis and he had better exercise tolerance. We were able to wean him off supplemental oxygen while awake. Forest has a STOP BANG score of 7 out of a possible 8 putting him at high risk for PAUL. An overnight trending pulse ox was done and was abnormal. He was placed on supplemental oxygen at 2 L/min anytime he is sleeping but, he has been refusing to wear it. All paperwork for a overnight sleep study was completed and an order has been placed. Hopefully this can be arranged for the night he leaves TCU but, if not it can be scheduled as an OP. He will need a repeat overnight trending pulse ox within 24-28 hours prior to DC from TCU to get supplemental oxygen ordered for home. Forest has been chronically incontinent of urine since surgery for prostate CA. A Davenport catheter was inserted for accurate I&O while he was being aggressively diuresed. The urine was cloudy and UA showed 2+ triple phosphate crystals, 3+ bacteria, 5-10 white blood cells and it was positive for nitrite. A urine culture was sent and grew Proteus mirabilis which was pansensitive except for nitrofurantoin resistance. He was treated with an appropriate course of Augmentin. Davenport catheter was discontinued when he was transition to oral Lasix. I&O can not be done since he is incontinent of urine. His weight on Lasix 40 mg PO daily is stable at 284-286. A BMP was done on the date of discharge from acute rehab and showed a stable sodium of 143. The potassium was 3.8 and due to hx of AF I would like to see this consistently 4 or greater. Potassium chloride was increased to 20 MEQ BID on the date of DC from rehab. MAG has been greater than 2 consistently. The BUN at discharge is 28 and the creatinine is 1.29 which is stable. Forest lives by himself and he does have family support but, we did not feel he was safe to be left alone at home yet. Progress in therapy was limited by acute respiratory failure and acute decompensated CHF at admission to rehab. He is making good progress with therapy but, the combined consensus of the therapists and myself is that he is not yet ready to DC home. His family agreed. Forest reluctantly agreed to go to TCU for additional therapy/strengthening prior to going home. He was transferred to TCU on 06/09/24. Forest will follow up with Dr. Kenn Soto (PCP), Dr. Olmedo and Dr. Cameron Leblanc (cardiothoracic surgery, [facility]) post DC. Following the sleep study he will F/U with [facility] to discuss the results of the sleep study and RX for PAP therapy if indicated. He will need a overnight trending pulse ox 24-48 hours prior to DC from TCU so the SW can order home oxygen, if he will agree to wear it. He did well on Wegovy in the past and was able to lose 80 lbs. Weight started to increase again off Wegovy. Wt loss is recommended and he and I discussed this. Would consider restarting Wegovy to assist in wt loss. Physical Exam Const alert, oriented x3 and no apparent distress General Appearance: cooperative and well kempt HEENT HEENT Narrative: MM are a little dry. No evidence of thrush. Eyes PERRL, EOMs intact bilaterally, conjunctivae normal and no scleral icterus Eyes Narrative: No discharge from the eyes. Neck no carotid bruits General: trachea midline Chest Chest: symmetrical chest wall rise Resp normal respiratory effort and no use of accessory muscles Resp Narrative: No crackles and no wheezes. BS's in the left base are decreased in the very base but, much improved from admission to rehab when he had moderate BL pleural effusions. Excellent air exchange in the right base and he no longer has egophony. Cough is much improved and I rarely hear him cough now. Effort and Inspection: able to speak in complete sentences Cardio regular rate, regular rhythm, no murmurs, no rub and no gallops Cardio Narrative: Rare ectopic. Heart sounds are distant. GI normal to inspection, nondistended, normoactive bowel sounds, soft to palpation and non-tender no CVA tenderness Extremity no calf tenderness Extremity Narrative: The edema in the thighs has resolved. No edema of the flanks. Edema is only in the R ankle now. He is wearing compression stockings now rather than CLAIRE wraps. General Extremity: Negative for clubbing or cyanosis Skin no jaundice Rashes: no rashes Wound Narrative: All incisions are intact with no dehiscence and no yisel-incisional erythema. No significant swelling around any of the incisions. No DC. Hair: normal Neuro oriented x3, CN's II-XII intact bilaterally, moves all extremities and no focal motor deficits Neuro Narrative: much more alert than at admission to rehab. No longer confused in the evening. No hallucinations. He is appropriate. Psych affect normal Psych Narrative: stubborn, overestimates what he can do without assist. Weight / BMI Weight Weight: 284 lb 6.341 oz Body Mass Index (BMI) 40.8 ABG / Lab / Microbiology Data 06/05/24 05:35 06/09/24 05:06 Laboratory: Laboratory Results - last 24 hr 06/09/24 05:06: Sodium 143, Potassium 3.8, Chloride 111 H, Carbon Dioxide 24.7, Anion Gap 8, BUN 28 H, Creatinine 1.29 H, Estim Creat Clear Calc 69.84, Est GFR (MDRD) Non-Af 59 L, BUN/Creatinine Ratio 21.5 H, Glucose 99, Calcium 9.0 Microbiology: Microbiology 05/30/24 11:54 Urine Catheter - Catheter Urine Culture - Final Proteus mirabilis 05/27/24 04:45 Stool Stool Occult Blood (NORBERTO) - Final D/C Instructions DC O2, CPAP, BIPAP Needs Home O2 Discharge instructions: Yes Type of respiratory needs?: Oxygen Oxygen frequency: With Sleeping (2 LPM) Oxygen liters per minute when sleepin DC home with Oxygen: No Please Follow Up With: cardiology Meaningful Use Info Meaningful Use Meaningful Use Diagnoses (Choose all that apply): CHF CHF CLAIRE/ARB ordered at discharge?: No Reason CLAIRE/ARB not ordered?: Normal EF Documented LVEF (%): 55 Ischemic Stroke Statin Dosing Therapy Reference: STATIN DOSE THERAPY REFERENCE: * Patients > 75 years receive moderate or high dose statin therapy. * Patients 75 years or YOUNGER should receive HIGH intensity statin dose unless contraindicated. You will be required to document reason for non-treatment if statin daily dose does not meet guidelines. HIGH DOSE STATIN THERAPY DAILY Atorvastatin > than or = to 40 mg Rosuvastatin > than or = to 20 mg Amlodipine + Atorvastatin > than or = to 2.5/40 mg Ezetimibe + Simvastatin 10/80 mg Simvastatin 80mg Discharge Plan Admission Admit Date/Time: 05/25/24 14:57 Primary Reason for Your Visit: Debility due to CABG and ascending aorta replacement Attending Provider: Alyce Whelan Primary Care Provider: Kenn Soto Consulting Providers: Jacob Luciano Instructions Additional Instructions / Restrictions: 1. Needs a formal overnight sleep study in the sleep lab going forward. Discharge Orders/Prescriptions Prescriptions: New multivitamin Tablet 1 tab PO DAILYCM Qty: 0 0RF amiodarone 200 mg Tablet 200 mg PO DAILY Qty: 0 0RF doxepin 10 mg Capsule 10 mg PO QHS Qty: 0 0RF acetaminophen 500 mg Tablet 1,000 mg PO Q8 PRN (Reason: Headache/Fever (T>100f)) Qty: 0 0RF magnesium hydroxide 400 mg/5 mL Suspension 30 ml PO X1 PRN (Reason: Constipation) Qty: 0 0RF amlodipine 10 mg Tablet 10 mg PO DAILY Qty: 0 0RF bisacodyl 10 mg Suppository 10 mg AZ X1 PRN (Reason: Constipation) Qty: 0 0RF Yunior (with collagen) 7-7-1.5 gram Powder In Packet 1 packet PO BIDCM Qty: 0 0RF sennosides-docusate sodium [Stimulant Laxative Plus] 8.6-50 mg Tablet 2 tab PO BID PRNQty: 0 0RF Deep Sea Nasal 0.65 % Aerosol,[place] 2 spray NASAL TID Qty: 0 0RF potassium chloride 20 mEq tablet extended release 20 meq PO BID Qty: 1 0RF Continued aspirin [Adult Aspirin Regimen] 81 mg tablet,delayed release (DR/EC) 81 mg PO DAILY atorvastatin 40 mg tablet 80 mg PO QHS furosemide [Lasix] 40 mg tablet 40 mg PO DAILY oxycodone 5 mg tablet 5 mg PO Q6H PRN (Reason: pain 7-10) metoprolol succinate [Toprol XL] 50 mg tablet extended release 24 hr 50 mg PO BID ezetimibe [Zetia] 10 mg tablet 10 mg PO QHS Discontinued multivitamin Tablet 1 tab PO QDAY doxazosin 8 mg tablet 8 mg PO BID acetaminophen 500 mg capsule 1,000 mg PO Q8H amlodipine 10 mg tablet 5 mg PO QDAY No Action amiodarone 400 mg tablet 400 mg PO BID Referrals / Follow Up: Ze Mcneil [Other] - 06/13/24 11:30 am Kenn Soto MD [Primary Care Provider] - 06/14/24 10:00 am Disposition Disposition (needs filled in before D/C Order can be placed): Senior Living Facility Charges/Coding Visit Charges Inpatient E&M: 49457 Disch Hosp >30min
[2024-06-08 17:49] VITALS: BP 147/75; PULSE 67; RESP 17; TEMP 36.6; O2SAT 95
[2024-06-08 20:00] VITALS: PULSE 67; RESP 17; O2SAT 95
[2024-06-08 20:29] VITALS: BP 136/64; PULSE 67
[2024-06-08] MEDS: Ezetimibe 10 MG Tablet PO (20:29)
[2024-06-08] MEDS: Doxepin Hydrochloride 10 MG Capsule PO (20:29)
[2024-06-08] MEDS: Atorvastatin Calcium 80 MG Tablet PO (20:31)
[2024-06-09 05:00] VITALS: BP 146/70; PULSE 62; RESP 16; TEMP 36.6; O2SAT 91; BMI 40.8
[2024-06-09] MEDS: Lactobacillis Acidophilus 1 CAP PO (05:25)
[2024-06-09] MEDS: Sodium Chloride 0.65% 1 SPRAY SPRAY.BTL 2 SPRAY NASAL (05:25)
[2024-06-09 06:29] LABS: Anion Gap 8 (5-15); BUN 28 mg/dL (4-19); BUN/Creat Ratio 21.5 RATIO (10-20); Carbon Dioxide 24.7 mmol/L (21.0-32.0); Chloride 111 mmol/L (98-108); Creatinine, Serum 1.29 mg/dL (0.70-1.20); EST Glomerular Filtration Rate 59 (>60); Estimated Creatinine Clearance 69.84 ml/min (50-250); Glucose 99 mg/dL (70-99); Potassium 3.8 mmol/L (3.3-5.1); Sodium Level 143 mmol/L (133-145)
[2024-06-09 07:56] VITALS: PULSE 70
[2024-06-09] MEDS: Aspirin E.C. 81 MG Tablet PO (08:04)
[2024-06-09] MEDS: Juven (unflavored) Packet 1 PACKET PO (08:04)
[2024-06-09] MEDS: Multivitamins,Therapeutic Tablet 1 TABLET PO (08:04)
[2024-06-09 08:05] VITALS: PULSE 70
[2024-06-09] MEDS: Metoprolol(XL)Succ 50 MG Tablet PO (08:05)
[2024-06-09] MEDS: Amiodarone 200 MG Tablet PO (08:05)
[2024-06-09] MEDS: Furosemide 40 MG Tablet PO (08:05)
[2024-06-09] MEDS: Enoxaparin 40 MG/0.4 ML Syringe SC (08:05)
[2024-06-09] MEDS: guaiFENesin 1,200 MG Tablet 1200 MG PO (08:06)
[2024-06-09] MEDS: Potassium Chloride Oral Tablet 20 MEQ PO (08:06)
[2024-06-09] MEDS: amLODIPine 10 MG Tablet PO (08:06)
--- NOTE | 2024-06-09 11:48 | NURSING ---
Report called to Cecilia MILES in TCU.
[2024-06-09 12:57] VITALS: BP 146/70; PULSE 62; RESP 16; TEMP 36.6; O2SAT 91
--- NOTE | 2024-06-09 12:57 | NURSING ---
discharged to TCU
== END 2024-06-09 12:59 | disposition skilled nursing facility (03) | DRG 949 ==
PROVIDERS: Radiology Diagnostic Radiology; Admitting Provider Internal Medicine; PCP Family Medicine; Visit Provider Internal Medicine
DX: Z48.812 Encounter for surgical aftercare following surgery on the circulatory system (principal); I31.39 Other pericardial effusion (noninflammatory); J91.8 Pleural effusion in other conditions classified elsewhere; I48.92 Unspecified atrial flutter; D62 Acute posthemorrhagic anemia; N17.9 Acute kidney failure, unspecified; Z68.41 Body mass index [BMI] 40.0-44.9, adult; I50.32 Chronic diastolic (congestive) heart failure; J98.11 Atelectasis; I11.0 Hypertensive heart disease with heart failure; I71.21 Aneurysm of the ascending aorta, without rupture; E66.01 Morbid (severe) obesity due to excess calories; I25.82 Chronic total occlusion of coronary artery; E78.5 Hyperlipidemia, unspecified; I95.1 Orthostatic hypotension; I48.0 Paroxysmal atrial fibrillation; G47.33 Obstructive sleep apnea (adult) (pediatric); I25.10 Atherosclerotic heart disease of native coronary artery without angina pectoris; T83.511A Infection and inflammatory reaction due to indwelling urethral catheter, initial encounter; R15.9 Full incontinence of feces; N30.00 Acute cystitis without hematuria; Z85.46 Personal history of malignant neoplasm of prostate; G47.00 Insomnia, unspecified; B96.4 Proteus (mirabilis) (morganii) as the cause of diseases classified elsewhere; Z95.1 Presence of aortocoronary bypass graft; Z79.899 Other long term (current) drug therapy; N39.498 Other specified urinary incontinence; R73.03 Prediabetes; Y73.8 Miscellaneous gastroenterology and urology devices associated with adverse incidents, not elsewhere classified; Y92.239 Unspecified place in hospital as the place of occurrence of the external cause
CPT/HCPCS: 32555; 36415; 71046; 71275; 80048; 80053; 81001; 82274; 82607; 82962; 83036; 83735; 83880; 84100; 84132; 84443; 85025; 85027; 85610; 85730; 87077; 87086; 87088; 87186; 92523; 93005; 93308; 94668; 97110; 97129; 97130; 97162; 97166; 97530; 97535; 97802; Q9967; A4216; J1940

== ENCOUNTER 2024-06-09 13:00 | Inpatient (IN) | payer MEDICARE, OTHER, SELFPAY ==
[2024-06-09 13:43] VITALS: BP 124/59; PULSE 64; PULSE 69; RESP 18; TEMP 36.8; O2SAT 95; BMI 40.8
--- NOTE | 2024-06-09 15:00 | PCM.HP.STD ---
HPI - General General Date of Admission: 06/09/24 Date of Service: 06/09/24 Chief Complaint: Here for rehabilitation. HPI Narrative CAMERON HIGGINS, is a 73 Male who presents with followin05/08/2024 Dr. Olmedo performed heart catheterization 2/2 markedly elevated calcium score, showed multivessel disease. 05/16/2024 [facility] CABG x 3, ascending aortic aneurysm repair. Post operative course complicated by delirium, acute blood loss anemia, atrial fibrillation (resolved). Transfused 1 unit PRBC for hemoglobin 6.9, improved to 7.5. 05/25/2024 Admit to for debility 2/2 CAD/CABG. 05/26/2024 CTA chest negative pulmonary embolism, showed bilateral pleural effusion. 05/29/2024 Aggressive diuresis for bilateral pleural effusion. [place] for intake and output. 05/30/2024 Consider discontinuing [place] catheter. More alert, improved with oxygen at night, better sleep with Doxepin 10mg qhs. 05/30/2024 Ultrasound guided right thoracentesis removed 1130mL fluid. 05/31/2024 Lost 20 pounds since admission. Lasix 40mg iv bid. May need home oxygen and/or sleep study. Augmentin for urinary tract infection, urine culture pending. 06/01/2024 Augmentin for Proteus Mirabilis urinary tract infection. 06/02/2024 Lasix 40mg iv bid. Replace potassium. 06/05/2024 Lasix IV to Lasix PO. Condom catheter at night to help him sleep. Sleep study post discharge. 06/09/2024 Admit to TCU with debility, here for rehabilitation, strengthening, prior to discharge home alone. [facility] Medical History (Updated 06/09/24 @ 15:[address] Maksim Bowen MD) Urinary incontinence Elevated coronary artery calcium score Osteoarthritis History of prostate cancer Essential (primary) hypertension Hyperlipidemia CAD (coronary artery disease) Obesity, morbid, BMI 40.0-49.9 Home Medications ?Medication ?Instructions ?Recorded ?Last Taken ?Type aspirin 81 mg tablet,delayed 81 mg PO DAILY heart health 05/02/24 05/25/24 History release (Adult Aspirin Regimen) atorvastatin 40 mg tablet 80 mg PO QHS cholesterol 05/02/24 05/24/24 History amiodarone 400 mg tablet 400 mg PO BID BP 05/25/24 05/25/24 History ezetimibe 10 mg tablet (Zetia) 10 mg PO QHS cholesterol 05/25/24 05/24/24 History furosemide 40 mg tablet (Lasix) 40 mg PO DAILY Fluid retention 05/25/24 05/25/24 History metoprolol succinate 50 mg 50 mg PO BID BP 05/25/24 05/25/24 History tablet,extended release 24 hr (Toprol XL) oxycodone 5 mg tablet 5 mg PO Q6H PRN pain 7-10 05/25/24 Unknown History acetaminophen 500 mg tablet 1,000 mg (2 x 500 mg) PO Q8 PRN 06/08/24 Unknown Rx Headache/Fever (T>100f) #0 tabs amiodarone 200 mg tablet 200 mg PO DAILY heart #0 tabs 06/08/24 Unknown Rx amlodipine 10 mg tablet 10 mg PO DAILY BP #0 tabs 06/08/24 Unknown Rx arginine 7 gram-glutam 7 1 packet PO BIDCM supplement #0 ea 06/08/24 Unknown Rx gram-CaHMB 1.5 [id number]-min oral pwd pkt (Yunior (with collagen)) bisacodyl 10 mg rectal suppository 10 mg CO X1 PRN Constipation #0 ea 06/08/24 Unknown Rx doxepin 10 mg capsule 10 mg PO QHS sleep #0 caps 06/08/24 Unknown Rx magnesium hydroxide 400 mg/5 mL 30 ml PO X1 PRN Constipation #0 mL 06/08/24 Unknown Rx oral suspension multivitamin 1 tab PO DAILYCM vitamin #0 tabs 06/08/24 Unknown Rx sennosides 8.6 mg-docusate sodium 2 tab PO BID PRN bowels #0 tabs 06/08/24 Unknown Rx 50 mg tablet (Stimulant Laxative Plus) sodium chloride 0.65 % nasal spray 2 spray NASAL TID nasal 06/08/24 Unknown Rx aerosol (Deep Sea Nasal) moisturizer #0 mL potassium chloride 20 mEq 20 meq PO BID potassium #1 TAB 06/09/24 Unknown Rx tablet,extended release Allergy/AdvReac Type Severity Reaction Status Date / Time No Known Allergies Allergy Verified 05/04/24 08:37 Family History Other CVA (cerebral vascular accident) Surgical History (Updated 06/09/24 @ 15:[address] Maksim Bowen MD) S/P CABG x 3 (05/16/24) History of aortic aneurysm repair (05/16/24) Hx of prostatectomy Hx of appendectomy History of hip replacement (~03/2023) Social History (Updated 06/09/24 @ 15:[address] Maksim Bowen MD) household members: none Smoking Status: Never smoker alcohol intake: never substance use type: does not use ROS Constitutional Constitutional: Reports weakness; Denies chills, fever(s) or weight gain ENT HEENT: Denies headache(s), nasal congestion or nasal discharge Cardiovascular Cardiovascular: Denies chest pain or palpitations Respiratory/Chest Respiratory/Chest: Denies cough, excessive phlegm production or shortness of breath with exertion Gastrointestinal Gastrointestinal: Denies abdominal pain, nausea or vomiting Genitourinary Genitourinary: Denies dysuria Musculoskeletal Musculoskeletal: Denies joint pain or joint swelling Integumentary Integumentary: Denies rash or wounds Neurologic Neurologic: Denies focal weakness, numbness or tingling Psychiatric Psychiatric: Denies anxiety, auditory hallucinations, depression, homicidal ideation or suicidal ideation Vital Signs Vital Signs Vital Signs: 06/09/24 13:43 Temperature 98.3 F Temperature Source Temporal Pulse Rate 69 Respiratory Rate 18 Blood Pressure 124/59 H Blood Pressure Mean 80 Blood Pressure Source Monitor Blood Pressure Position Sitting Blood Pressure Location Left Arm Pulse Ox 95 Oxygen Delivery Method Room Air Weight Weight: 128.99 kg Body Mass Index (BMI) 40.8 Physical Exam Const alert General Appearance: cooperative HEENT normocephalic Eyes PERRL and EOMs intact bilaterally Neck supple, no JVD and no carotid bruits Resp normal respiratory effort, normal air movement and clear to auscultation bilaterally Cardio regular rate and regular rhythm GI normal to inspection, nondistended, normoactive bowel sounds, non-tender and non-distended Extremity normal capillary refill General Extremity: Negative for edema Skin no rashes or lesions noted General Skin Exam: no breakdown Psych affect normal Appearance: appropriate Assessment & Plan Assessment/Plan (1) Debility: (2) S/P CABG x 3: (3) S/P aortic aneurysm repair: (4) Acute delirium: (5) Atrial fibrillation with RVR: (6) Bilateral pleural effusion: (7) Urinary tract infection: (8) Essential (primary) hypertension: (9) History of prostate cancer: (10) Hyperlipidemia: QUALIFIERS: Hyperlipidemia type: unspecified Qualified Code(s): E78.5 - Hyperlipidemia, unspecified (11) CAD (coronary artery disease): QUALIFIERS: Associated angina: without angina Coronary Disease-Associated Artery/Lesion type: [place] artery [place] vs. transplanted heart: [place] heart Qualified Code(s): I25.10 - Atherosclerotic heart disease of [place] coronary artery without angina pectoris (12) Obstructive sleep apnea: (13) Insomnia: (14) Morbid obesity: PLAN: Plan 73 year old male with below past medical history hospitalized for cabg x 3, aortic aneurysm repair 05/16/2024, postoperative course complicated by delirium, acute blood loss anemia, atrial fibrillation with rapid ventricular response, admitted to , complicated by right pleural effusion requiring thoracentesis, P. Mirabilis urinary tract infection, transferred to TCU with debility, here for rehabilitation, strengthening, prior to discharge home alone. Debility - PT/OT. Pain - Tylenol 1000mg q6 prn pain (1-5), Oxycodone 5mg q4 prn pain (6-10). Bowel - Miralax 17gm daily, senna/colace 2 tablets bid, Dulcolax 10mg pr x 1 prn, MOM 30mL po x 1 prn. Adult immunization - Administer pneumonia vaccine, covid vaccine, flu vaccine as appropriate. DVT prophylaxis - Lovenox 40mg sc daily. Atrial fibrillation - Metoprolol succinate 50mg bid, Amiodarone 200mg daily, Aspirin 81mg daily. Hypertension - Metoprolol succinate 50mg bid, Amlodipine 10mg daily. Hyperlipidemia - Atorvastatin 80mg qhs, Zetia 10mg qhs. HFpEF - Metoprolol succinate 50mg bid, Furosemide 40mg daily. Nutrition - Yunior 1 packet bidcm, MVI 1 tablet daily. Hypokalemia - KCL 20meq bidcm. Dry nares - Sodium chloride 0.65% 2 sprays nasal tid. The following psychotropic medication was present on admission: Doxepin 10mg qhs. Psychotropic medication therapy is indicated for a diagnosis of: Insomnia. Based on my clinical evaluation, continuation of the medication is necessary at this time. Gradual dose reduction plan (select one): ____ GDR will be attempted. Will monitor patient symptoms and behaviors in response to GDR. __x__ GRD contraindicated. Reason contraindicated: stable chronic use.
[2024-06-09] MEDS: Sodium Chloride 0.65% 1 SPRAY SPRAY.BTL 2 SPRAY NASAL ×2 (17:44→20:40)
[2024-06-09] MEDS: Potassium Chloride Oral Tablet 20 MEQ PO (17:45)
[2024-06-09] MEDS: Juven (unflavored) Packet 1 PACKET PO (17:45)
[2024-06-09 20:42] VITALS: BP 134/70; PULSE 63
[2024-06-09] MEDS: Doxepin Hydrochloride 10 MG Capsule PO (20:42)
[2024-06-09] MEDS: Senna/Docusate Sodium 1 Tablet 2 TABLET PO (20:42)
[2024-06-09] MEDS: Metoprolol(XL)Succ 50 MG Tablet PO (20:42)
[2024-06-09] MEDS: Atorvastatin Calcium 80 MG Tablet PO (20:43)
[2024-06-09] MEDS: Ezetimibe 10 MG Tablet PO (20:43)
--- NOTE | 2024-06-09 20:53 | NURSING ---
Contacted pharmacy directly via telephone requesting clarification if ok to combine zetia and lipitor as currently ordered, per pharmacy ok for zetia and lipitor as ordered
[2024-06-10] MEDS: Sodium Chloride 0.65% 1 SPRAY SPRAY.BTL 2 SPRAY NASAL ×3 (05:47→20:58)
[2024-06-10] MEDS: Enoxaparin 40 MG/0.4 ML Syringe SC (05:47)
[2024-06-10 06:33] LABS: Absolute Neutrophil Count 4.4 X10^3/uL (2.0-7.7); Basophil# 0.08 X10^3/uL; Basophil% 1.2 % (0-1); Eosinophil# 0.47 X10^3/uL; Eosinophils% 6.8 % (0-5); Hematocrit 33.1 % (40-54); Hemoglobin 10.6 g/dL (13.0-16.5); Lymphocyte % 20.3 % (19-41); Mean Corpuscular Hgb 30.2 pg (27.0-32.0); Mean Corpuscular Volume 94.3 fL (80-94); Mean Platelet Vol. 9.2 fl (6.2-12.0); Monocyte# 0.55 X10^3/uL; NRBC Flagged by Analyzer 0 % (0-5); Neutrophil # 4.35 X10^3/uL (2.7-7.7); Neutrophil % 63.3 % (47-70); Platelet Count 361 K/mm3 (150-450); RBC Distribution Width CV 14.8 % (11.6-14.6); Red Blood Count 3.51 M/mm3 (4.6-6.2); White Blood Count 6.9 K/mm3 (4.4-11.0)
[2024-06-10 07:03] VITALS: O2SAT 94
[2024-06-10 07:09] LABS: Anion Gap 10 (5-15); BUN 23 mg/dL (4-19); BUN/Creat Ratio 19.3 RATIO (10-20); Calcium,Total 9.1 mg/dL (7.6-11.0); Carbon Dioxide 23.6 mmol/L (21.0-32.0); Chloride 112 mmol/L (98-108); Creatinine, Serum 1.21 mg/dL (0.70-1.20); EST Glomerular Filtration Rate 64 (>60); Estimated Creatinine Clearance 74.46 ml/min (50-250); Glucose 96 mg/dL (70-99); Potassium 3.8 mmol/L (3.3-5.1); Sodium Level 145 mmol/L (133-145)
[2024-06-10 08:19] VITALS: BP 140/70; PULSE 63; RESP 16; TEMP 36.3; O2SAT 95
[2024-06-10] MEDS: Aspirin E.C. 81 MG Tablet PO (08:24)
[2024-06-10] MEDS: Potassium Chloride Oral Tablet 20 MEQ PO ×2 (08:24→17:40)
[2024-06-10] MEDS: Amiodarone 200 MG Tablet PO (08:24)
[2024-06-10] MEDS: Multivitamins,Therapeutic Tablet 1 TABLET PO (08:25)
[2024-06-10] MEDS: Furosemide 40 MG Tablet PO (08:25)
[2024-06-10] MEDS: amLODIPine 10 MG Tablet PO (08:26)
[2024-06-10] MEDS: Polyethylene Glycol 3350 17 GM PACKET PO (08:26)
[2024-06-10 08:27] VITALS: PULSE 63
[2024-06-10] MEDS: Senna/Docusate Sodium 1 Tablet 2 TABLET PO ×2 (08:27→20:58)
[2024-06-10] MEDS: Metoprolol(XL)Succ 50 MG Tablet PO ×2 (08:27→20:59)
[2024-06-10] MEDS: Tuberculin,Purif.prot.deriv. 50 TU/ML Vial 0.1 ML ID (13:18)
[2024-06-10] MEDS: Atorvastatin Calcium 80 MG Tablet PO (20:58)
[2024-06-10 20:59] VITALS: BP 149/72; PULSE 66
[2024-06-10] MEDS: Doxepin Hydrochloride 10 MG Capsule PO (20:59)
[2024-06-10] MEDS: Ezetimibe 10 MG Tablet PO (20:59)
[2024-06-11] MEDS: Enoxaparin 40 MG/0.4 ML Syringe SC (06:33)
[2024-06-11] MEDS: Sodium Chloride 0.65% 1 SPRAY SPRAY.BTL 2 SPRAY NASAL ×3 (06:34→21:28)
[2024-06-11] MEDS: Senna/Docusate Sodium 1 Tablet 2 TABLET PO (07:32)
[2024-06-11] MEDS: Aspirin E.C. 81 MG Tablet PO (07:32)
[2024-06-11 07:33] VITALS: PULSE 70
[2024-06-11] MEDS: Juven (unflavored) Packet 1 PACKET PO (07:33)
[2024-06-11] MEDS: Metoprolol(XL)Succ 50 MG Tablet PO ×2 (07:33→21:30)
[2024-06-11] MEDS: Polyethylene Glycol 3350 17 GM PACKET PO (07:33)
[2024-06-11] MEDS: Potassium Chloride Oral Tablet 20 MEQ PO ×2 (07:33→16:44)
[2024-06-11] MEDS: Furosemide 40 MG Tablet PO (07:33)
[2024-06-11] MEDS: amLODIPine 10 MG Tablet PO (07:33)
[2024-06-11] MEDS: Multivitamins,Therapeutic Tablet 1 TABLET PO (07:33)
[2024-06-11] MEDS: Amiodarone 200 MG Tablet PO (07:48)
[2024-06-11 09:59] VITALS: O2SAT 94
[2024-06-11 12:20] VITALS: BP 134/68; PULSE 66; RESP 14; TEMP 36.6; O2SAT 93
[2024-06-11] MEDS: Atorvastatin Calcium 80 MG Tablet PO (21:29)
[2024-06-11] MEDS: Ezetimibe 10 MG Tablet PO (21:29)
[2024-06-11 21:30] VITALS: BP 149/78; PULSE 64
[2024-06-11] MEDS: Doxepin Hydrochloride 10 MG Capsule PO (21:30)
[2024-06-12] MEDS: Sodium Chloride 0.65% 1 SPRAY SPRAY.BTL 2 SPRAY NASAL ×3 (05:22→21:00)
[2024-06-12] MEDS: Enoxaparin 40 MG/0.4 ML Syringe SC (05:22)
--- NOTE | 2024-06-12 08:59 | NURSING ---
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 Forest is independent in his choice of daily activities. He prefers to just watch tv anything History. His family will visits and bring items he may need. Forest enjoys talk about his past work history. He welcomes visits from the hide stretcher hand and therapy dog when available. Staff will encourage social activities and respect his right to say no.
[2024-06-12 09:47] VITALS: BP 157/83; PULSE 75; RESP 16; TEMP 36.7; O2SAT 96
[2024-06-12] MEDS: Amiodarone 200 MG Tablet PO (09:52)
[2024-06-12] MEDS: Furosemide 40 MG Tablet PO (09:52)
[2024-06-12] MEDS: Aspirin E.C. 81 MG Tablet PO (09:52)
[2024-06-12] MEDS: Multivitamins,Therapeutic Tablet 1 TABLET PO (09:52)
[2024-06-12] MEDS: Potassium Chloride Oral Tablet 20 MEQ PO ×2 (09:52→16:39)
[2024-06-12 09:53] VITALS: PULSE 75
[2024-06-12] MEDS: Metoprolol(XL)Succ 50 MG Tablet PO ×2 (09:53→21:01)
[2024-06-12] MEDS: amLODIPine 10 MG Tablet PO (09:53)
[2024-06-12] MEDS: Senna/Docusate Sodium 1 Tablet 2 TABLET PO (09:53)
--- NOTE | 2024-06-12 10:26 | PCM.PN.DRR ---
Documented by User: Edna Matamoros 06/12/24 10:42 TCU RX Drug Regimen Review Subjective/Objective Subjective/Objective Subjective: TCU Admission. 73 YOM presented for a boyd cath with Dr. Olmedo 05/08/24 and was sent to [facility] for CABG. Hospitalized for cabg x 3, aortic aneurysm repair 05/16/2024, postoperative course complicated by delirium, acute blood loss anemia, atrial fibrillation with rapid ventricular response, admitted to , complicated by right pleural effusion requiring thoracentesis, P. Mirabilis urinary tract infection. Admitted to TCU with debility for strengthening and rehabilitation. Objective: Allergies No Known Allergies Allergy (Verified 05/04/24 08:37) Current Medications Generic Name Dose Route Start Last Admin Trade Name Freq PRN Reason Stop Dose Admin Acetaminophen 1,000 mg 06/09/24 15:25 Acetaminophen 500 Mg Tablet PO Q6H PRN Pain Score 1-5 Amiodarone HCl 200 mg 06/10/24 08:00 06/12/24 09:52 Amiodarone 200 Mg Tablet PO 200 mg DAILYCM ISSA Administration Amlodipine Besylate 10 mg 06/10/24 10:00 06/12/24 09:53 Amlodipine 10 Mg Tablet PO 10 mg DAILY SISA Administration Protocol Aspirin 81 mg 06/10/24 08:00 06/12/24 09:52 Aspirin E.C. 81 Mg Tablet PO 81 mg BREAKFAST ISSA Administration Atorvastatin Calcium 80 mg 06/09/24 22:00 06/11/24 21:29 Atorvastatin Calcium 80 Mg Tablet PO 80 mg QHS ISSA Administration Bisacodyl 10 mg 06/09/24 13:39 Bisacodyl 10 Mg Suppository RC X1 PRN Constipation Doxepin HCl 10 mg 06/09/24 22:00 06/11/24 21:30 Doxepin Hydrochloride 10 Mg Capsule PO 10 mg QHS ISSA Administration Ezetimibe 10 mg 06/09/24 22:00 06/11/24 21:29 Ezetimibe 10 Mg Tablet PO 10 mg QHS ISSA Administration Enoxaparin Sodium 40 mg 06/10/24 06:00 06/12/24 05:22 Enoxaparin 40 Mg/0.4 Ml Syringe SC 40 mg DAILY@0600 ISSA Administration Furosemide 40 mg 06/10/24 10:00 06/12/24 09:52 Furosemide 40 Mg Tablet PO 40 mg DAILY ISSA Administration Protocol Magnesium Hydroxide 30 ml 06/09/24 13:39 Magnesium Hydroxide 30 Ml Udc PO X1 PRN Constipation Metoprolol Succinate 50 mg 06/09/24 22:00 06/12/24 09:53 Metoprolol(Xl)Succ 50 Mg Tablet PO 50 mg BID ISSA Administration Protocol Multivitamins 1 tablet 06/10/24 08:00 06/12/24 09:52 Multivitamins,Therapeutic Tablet PO 1 tablet DAILYCM ISSA Administration Oxycodone HCl 5 mg 06/09/24 15:25 Oxycodone 5 Mg Tablet PO Q4H PRN PRN Pain Score 6-10 or Pre PT/OT Polyethylene Glycol 17 gm 06/10/24 10:00 06/12/24 09:53 Polyethylene Glycol 3350 17 Gm Packet PO Not Given DAILY ISSA Potassium Chloride 20 meq 06/09/24 17:00 06/12/24 09:52 Potassium Chloride Oral Tablet 20 Meq PO 20 meq BIDCM ISSA Administration Senna/Docusate Sodium 2 tablet 06/09/24 22:00 06/12/24 09:53 Senna/Docusate Sodium 1 Tablet PO 2 tablet BID ISSA Administration Sodium Chloride 2 spray 06/09/24 14:00 06/12/24 05:22 Sodium Chloride 0.65% 1 [place].Btl NASAL 2 spray TID ISSA Administration Sodium Chloride 10 - 40 ml 06/09/24 13:53 0.9% Saline Lock 10 Ml Syringe IV UD PRN SALINE FLUSH Tuberculin PPD 0.1 ml 06/17/24 10:00 Tuberculin,Purif.Prot.Deriv. 50 Tu/Ml Vial ID 06/17/24 10:01 X1 ONE Problem List Morbid obesity (Acute) Insomnia (Acute) Obstructive sleep apnea (Acute) Urinary tract infection (Acute) Atrial fibrillation with RVR (Acute) Acute delirium (Acute) S/P aortic aneurysm repair (Acute) S/P CABG x 3 (Acute 05/16/24) Bilateral pleural effusion (Acute) Debility (Acute) History of prostate cancer (Chronic) Essential (primary) hypertension (Chronic) Hyperlipidemia (Chronic) CAD (coronary artery disease) (Chronic) Vital Signs Temp Pulse Resp BP Pulse Ox O2 Del Method 98.1 F 75 16 157/83 H 96 Room Air 06/12/24 09:47 06/12/24 09:53 06/12/24 09:47 06/12/24 09:47 06/12/24 09:47 06/12/24 09:47 Oxygen Delivery Method Room Air Weight: 128.99 kg Body Mass Index (BMI) 40.8 Sodium 145 mmol/L (133-145) 06/10/24 06:06 Potassium 3.8 mmol/L (3.3-5.1) 06/10/24 06:06 Chloride 112 mmol/L (98-108) H 06/10/24 06:06 Carbon Dioxide 23.6 mmol/L (21.0-32.0) 06/10/24 06:06 Anion Gap 10 (5-15) 06/10/24 06:06 BUN 23 mg/dL (4-19) H 06/10/24 06:06 Creatinine 1.21 mg/dL (0.70-1.20) H 06/10/24 06:06 Est GFR (MDRD) Non-Af 64 (>60) 06/10/24 06:06 BUN/Creatinine Ratio 19.3 RATIO (10-20) 06/10/24 06:06 Glucose 96 mg/dL (70-99) 06/10/24 06:06 Assessment/Plan: 1. Pain: acetaminophen 1000mg PO Q6H PRN pain 1-5 and oxycodone 5mg Q4H PRN pain 6-10. No PRN doses have been given. Please continue to monitor for increased pain and PRN usage. 2. Bowel: Miralax 17gm PO daily, senna/docusate 2T PO BID, bisacodyl 10mg RC x1 PRN constipation and MOM 30mL PO x1 PRN constipation. No PRN doses have been given. Please continue to monitor for constipation, PRN usage. Last documented bowel movement was 06/11/24. 3. DVT prophylaxis: enoxaparin 40mg SC daily. Please continue to monitor for S/S of bleeding/DVT, hemoglobin (last 10.6g/dL), platelets (last 361,000) and renal function. 4. Atrial fibrillation/hypertension/HFpEF: metoprolol succinate 50mg PO BID, amiodarone 200mg PO daily, amlodipine 10mg PO daily, aspirin 81mg PO daily and furosemide 40mg PO daily. Please continue to monitor BP (124-157/59-83), HR (63-75), sodium (last 145mmol/L), potassium (last 3.8mmol/L), swelling, S/S of bleeding, hemoglobin, renal function. 5. Hyperlipidemia: atorvastatin 80mg PO QHS and ezetimibe 10mg PO QHS. Please consider ordering a lipid panel as there is no panel in the chart. Thanks. Please continue to monitor for muscle pain and LFTs (last 05/26/24). 6. Hypokalemia: potassium chloride 20mEq PO BIDCM. Please continue to monitor potassium (last 3.8mmol/L). 7. Dry nares: [place] nasal spray 2 sprays nasal TID. Please continue to monitor for dry nares. 8. Nutrition: Yunior 1 packet PO BIDCM and multivitamin 1T PO daily. Please continue to monitor. Assessment/Plan for indications treated with psychotropic medications: 1. Insomnia: doxepin 10mg PO QHS. Please see physician note regarding GDR. Monitor for residual daytime sedation, mental status and cognition. Monitor for abnormal sleep behaviors or psychiatric effects including hallucinations, aggressive behavior, or delirium. Monitor for falls (risk factor for falls) and implement fall prevention strategies. Monitor for respiratory depression. RR range since admission = 14-18. Monitor for efficacy including resident symptoms, behaviors and indications of distress. Monitor for tolerability including mental status, cognition, excessive sleepiness, withdrawal or decreased participation in activities and decline in physical functioning. Maximize use of nonpharmacologic/behavioral interventions to facilitate dose reduction or discontinuation as appropriate. Please evaluate the appropriateness of GDR unless contraindicated. If appropriate, GDR should be attempted in 2 separate quarters within the first year of use or admission to TCU. If GDR attempted, monitor resident symptoms/behaviors. Medical chart and medication regimen reviewed. The following medication irregularities or issues were identified: 1. Atorvastatin 80mg PO QHS and ezetimibe 10mg PO QHS. Please consider ordering a lipid panel as there is no panel in the chart. Thanks. Date Date of Note: 06/12/24 Documented by User: Dr. Maksim Bowen MD 06/12/24 10:57 TCU RX Drug Regimen Review Provider Comments Provider responsibility Provider Comments to Recommendations by Pharmacy Agree
[2024-06-12] MEDS: COVID VAC 24-25 (12UP)(MODERNA)/PF 50 MCG/0.5 ML SYRINGE IM (16:39)
[2024-06-12 20:57] VITALS: BP 148/75; PULSE 66; RESP 16; O2SAT 96
[2024-06-12] MEDS: Doxepin Hydrochloride 10 MG Capsule PO (21:00)
[2024-06-12] MEDS: Ezetimibe 10 MG Tablet PO (21:00)
[2024-06-12 21:01] VITALS: BP 148/75; PULSE 66
[2024-06-12] MEDS: Atorvastatin Calcium 80 MG Tablet PO (21:01)
[2024-06-13] MEDS: Enoxaparin 40 MG/0.4 ML Syringe SC (05:25)
[2024-06-13] MEDS: Sodium Chloride 0.65% 1 SPRAY SPRAY.BTL 2 SPRAY NASAL ×3 (05:26→21:08)
[2024-06-13 06:06] LABS: Cholesterol 100 mg/dL (<=200); High Density Lipoprotein 38 mg/dL; Low Density Lipoprotein Calc. 47 mg/dL; Triglycerides 76 mg/dL; Very Low Density Lipoprotein 15 mg/dL (5-40); cholesterol:hdl ratio screen 2.66
[2024-06-13 07:37] VITALS: O2SAT 92
[2024-06-13 07:39] VITALS: BMI 41.4
[2024-06-13 08:28] VITALS: BP 158/82; PULSE 68; RESP 16; O2SAT 95
[2024-06-13] MEDS: Aspirin E.C. 81 MG Tablet PO (08:31)
[2024-06-13] MEDS: Amiodarone 200 MG Tablet PO (08:31)
[2024-06-13] MEDS: Potassium Chloride Oral Tablet 20 MEQ PO ×2 (08:31→17:11)
[2024-06-13] MEDS: Multivitamins,Therapeutic Tablet 1 TABLET PO (08:32)
[2024-06-13] MEDS: amLODIPine 10 MG Tablet PO (08:32)
[2024-06-13] MEDS: Furosemide 40 MG Tablet PO (08:32)
[2024-06-13 08:33] VITALS: PULSE 68
[2024-06-13] MEDS: Senna/Docusate Sodium 1 Tablet 2 TABLET PO ×2 (08:33→21:07)
[2024-06-13] MEDS: Metoprolol(XL)Succ 50 MG Tablet PO ×2 (08:33→21:10)
--- NOTE | 2024-06-13 10:23 | NURSING ---
Addendum entered by Twyla Alcaraz 06/13/24 14:02: Patient returned to unit at this time from dr stoner. Original Note: Patient exited the unit at this time for follow up appt. Family is transporting.
--- NOTE | 2024-06-13 15:59 | CHAPLAIN ---
Type of Pastoral Visit _x__ Initial Visit ___ Follow-up Visit ___ On-call Visit ___ General Patient Visit ___ Spiritual Assessment ___ Family Conference ___ Bereavement ___ Rapid Response ___ Code Blue ___ Other (describe below) Pastoral Care Referral From _x__ Patient ___ Family ___ Nurse ___ Physician ___ Manager Floor ___ Oxygen Therapy Technician ___ Other (describe below) Sacrament/Intervention _x__ Active listening ___ Anointing ___ Rastafari ___ Bereavement ___ Communion ___ Luzmaria exploration ___ _x__ Life review _x__ Prayer ___ Reconciliation ___ Sacrament of Sick _x__ Supportive presence ___ Wedding ___ Other (describe below) Pastoral Comments this is the first meeting with the patient who had been in Rehab for two weeks prior to this; pt was welcoming and speaks of his 'long stay from heart surgery to rehab and now transitional care'; pt has family and anabaptism support; pt speaks of his reading of the Bible for his inspiration and direction; pt admits that he longs for home and would feel better knowing he can get there soon; prayer is welcomed
[2024-06-13 17:08] VITALS: TEMP 36.7
[2024-06-13] MEDS: Atorvastatin Calcium 80 MG Tablet PO (21:07)
[2024-06-13] MEDS: Doxepin Hydrochloride 10 MG Capsule PO (21:09)
[2024-06-13] MEDS: Ezetimibe 10 MG Tablet PO (21:09)
[2024-06-13 21:10] VITALS: BP 129/72; PULSE 67
[2024-06-13 22:00] VITALS: PULSE 67; RESP 16; O2SAT 94
[2024-06-14] MEDS: Sodium Chloride 0.65% 1 SPRAY SPRAY.BTL 2 SPRAY NASAL ×3 (05:32→21:06)
[2024-06-14] MEDS: Enoxaparin 40 MG/0.4 ML Syringe SC (05:33)
[2024-06-14] MEDS: Multivitamins,Therapeutic Tablet 1 TABLET PO (08:35)
[2024-06-14] MEDS: Polyethylene Glycol 3350 17 GM PACKET PO (08:35)
[2024-06-14] MEDS: Amiodarone 200 MG Tablet PO (08:35)
[2024-06-14] MEDS: Potassium Chloride Oral Tablet 20 MEQ PO ×2 (08:35→17:25)
[2024-06-14] MEDS: amLODIPine 10 MG Tablet PO (08:35)
[2024-06-14] MEDS: Furosemide 40 MG Tablet PO (08:36)
[2024-06-14] MEDS: Senna/Docusate Sodium 1 Tablet 2 TABLET PO ×2 (08:36→21:05)
[2024-06-14 08:37] VITALS: BP 133/70; PULSE 70
[2024-06-14] MEDS: Aspirin E.C. 81 MG Tablet PO (08:37)
[2024-06-14] MEDS: Metoprolol(XL)Succ 50 MG Tablet PO ×2 (08:37→21:02)
--- NOTE | 2024-06-14 13:02 | CASEMGMT ---
Social Work IDT met with patient and dtr Keerthi for care plan meeting. Discussed patient's progress in PT/OT/SN. Educated to Medicare benefit. Provided pt/family with written communication of insurance process and copay coverage during stay. Pt is still needing assistance with toileting tasks and urinary incontinence. Pt is progressing but recommending continued stay to become mod I at DC. Pt reports minimal urinary incontinence is baseline d/t prostate cancer surgery. Pt was not using a FWW at baseline, and was furniture walking/using cane and would like to trial that. TUBING MACHINE OPERATOR is beginning cane trials. Discussed scheduling DC with sleep study. Pt stated he is declining to complete the sleep study. SW explored further the reasons for declining. SW encouraged pt to reconsider, discussed increased risk for stroke and additional medical conditions. Explained the benefit of having adequate O2 levels while sleeping. Explained the process of the sleep study to provide reassurance and ease of the study. Pt did reconsider and agree to study. SW appreciative and will continue another week, then revisit bed availability to scheduled DC. Pt and dtr appreciative. Franci Rosales HOME APPLIANCE TECHNICIAN JINRIKISHA DRIVER
[2024-06-14 15:19] VITALS: BP 133/70; PULSE 70; RESP 18; TEMP 36.4; O2SAT 92
[2024-06-14 21:00] VITALS: BP 140/73; PULSE 68
[2024-06-14 21:02] VITALS: BP 140/73; PULSE 68
[2024-06-14] MEDS: Doxepin Hydrochloride 10 MG Capsule PO (21:03)
[2024-06-14] MEDS: Ezetimibe 10 MG Tablet PO (21:05)
[2024-06-14] MEDS: Atorvastatin Calcium 80 MG Tablet PO (21:06)
[2024-06-15] MEDS: Sodium Chloride 0.65% 1 SPRAY SPRAY.BTL 2 SPRAY NASAL ×3 (05:57→20:19)
[2024-06-15] MEDS: Enoxaparin 40 MG/0.4 ML Syringe SC (05:57)
[2024-06-15 07:21] VITALS: BP 132/80; PULSE 67; RESP 18; TEMP 36.7; O2SAT 92
[2024-06-15] MEDS: Aspirin E.C. 81 MG Tablet PO (07:23)
[2024-06-15] MEDS: Furosemide 40 MG Tablet PO (07:23)
[2024-06-15] MEDS: Amiodarone 200 MG Tablet PO (07:23)
[2024-06-15] MEDS: Multivitamins,Therapeutic Tablet 1 TABLET PO (07:23)
[2024-06-15] MEDS: Potassium Chloride Oral Tablet 20 MEQ PO ×2 (07:23→17:23)
[2024-06-15 07:24] VITALS: PULSE 67
[2024-06-15] MEDS: Senna/Docusate Sodium 1 Tablet 2 TABLET PO ×2 (07:24→20:20)
[2024-06-15] MEDS: Polyethylene Glycol 3350 17 GM PACKET PO (07:24)
[2024-06-15] MEDS: amLODIPine 10 MG Tablet PO (07:24)
[2024-06-15] MEDS: Metoprolol(XL)Succ 50 MG Tablet PO ×2 (07:24→20:22)
--- NOTE | 2024-06-15 11:55 | CASEMGMT ---
Social Work SW completed BIMS () and PHQ-2 () for MDS assessment. Franci Rosales SOFTWARE SOLUTIONS ARCHITECT DOG GROOMER
[2024-06-15 15:35] VITALS: PULSE 68; RESP 16; O2SAT 97
--- NOTE | 2024-06-15 17:46 | NURSING ---
message left with Learning Services Coordinator, pt refusing adi. pts chest incision well approximated, healing well. abdomen incisions scabbed over.
[2024-06-15 20:15] VITALS: BP 140/70; PULSE 65
[2024-06-15] MEDS: Atorvastatin Calcium 80 MG Tablet PO (20:20)
[2024-06-15] MEDS: Doxepin Hydrochloride 10 MG Capsule PO (20:21)
[2024-06-15 20:22] VITALS: BP 140/70; PULSE 65
[2024-06-15] MEDS: Ezetimibe 10 MG Tablet PO (20:23)
[2024-06-16 06:04] LABS: Absolute Lymphocyte Count 1.54 X10^3/uL (0.83-4.51); Absolute Neutrophil Count 4.3 X10^3/uL (2.0-7.7); Basophil# 0.08 X10^3/uL; Basophil% 1.2 % (0-1); Eosinophil# 0.37 X10^3/uL; Eosinophils% 5.3 % (0-5); Hematocrit 33.4 % (40-54); Hemoglobin 10.7 g/dL (13.0-16.5); Lymphocyte # 1.54 X10^3/ul (0.83-4.51); Lymphocyte % 22.2 % (19-41); Mean Corpuscular Hgb 30.1 pg (27.0-32.0); Mean Corpuscular Volume 93.8 fL (80-94); Mean Platelet Vol. 9.1 fl (6.2-12.0); Monocyte# 0.68 X10^3/uL; Monocyte% 9.8 % (0-10); NRBC Flagged by Analyzer 0 % (0-5); Neutrophil # 4.26 X10^3/uL (2.7-7.7); Neutrophil % 61.2 % (47-70); Platelet Count 292 K/mm3 (150-450); RBC Distribution Width CV 14.9 % (11.6-14.6); RBC Distribution Width SD 51.6 fl (35.1-43.9); Red Blood Count 3.56 M/mm3 (4.6-6.2)
[2024-06-16] MEDS: Enoxaparin 40 MG/0.4 ML Syringe SC (06:26)
[2024-06-16] MEDS: Sodium Chloride 0.65% 1 SPRAY SPRAY.BTL 2 SPRAY NASAL ×2 (06:26→13:43)
[2024-06-16 06:55] LABS: Anion Gap 8 (5-15); BUN 13 mg/dL (4-19); BUN/Creat Ratio 11.9 RATIO (10-20); Calcium,Total 8.8 mg/dL (7.6-11.0); Carbon Dioxide 24.2 mmol/L (21.0-32.0); Chloride 110 mmol/L (98-108); Creatinine, Serum 1.06 mg/dL (0.70-1.20); EST Glomerular Filtration Rate 75 (>60); Glucose 92 mg/dL (70-99); Potassium 3.8 mmol/L (3.3-5.1); Sodium Level 142 mmol/L (133-145)
--- NOTE | 2024-06-16 08:15 | NS ---
Nsg reports surgical incisions healed and res now refusing Yunior bid - will d/c Yunior as no longer indicated.
--- NOTE | 2024-06-16 08:37 | NURSING ---
Tempering Oven Operator Note; MDS for 06/16/2024 Complete
[2024-06-16] MEDS: Potassium Chloride Oral Tablet 20 MEQ PO ×2 (08:49→17:20)
[2024-06-16] MEDS: amLODIPine 10 MG Tablet PO (08:49)
[2024-06-16 08:50] VITALS: BP 128/61; PULSE 66
[2024-06-16] MEDS: Amiodarone 200 MG Tablet PO (08:50)
[2024-06-16] MEDS: Aspirin E.C. 81 MG Tablet PO (08:50)
[2024-06-16] MEDS: Metoprolol(XL)Succ 50 MG Tablet PO ×2 (08:50→20:42)
[2024-06-16] MEDS: Furosemide 40 MG Tablet PO (08:50)
[2024-06-16] MEDS: Multivitamins,Therapeutic Tablet 1 TABLET PO (08:50)
[2024-06-16 09:45] VITALS: BP 128/61; PULSE 66; RESP 18; TEMP 36.5; O2SAT 94
[2024-06-16 19:29] VITALS: BP 143/62; PULSE 68
[2024-06-16] MEDS: Senna/Docusate Sodium 1 Tablet 2 TABLET PO (20:41)
[2024-06-16 20:42] VITALS: PULSE 68
[2024-06-16] MEDS: Atorvastatin Calcium 80 MG Tablet PO (20:42)
[2024-06-16] MEDS: Ezetimibe 10 MG Tablet PO (20:42)
[2024-06-16] MEDS: MELATONIN 3 MG TABLET PO (20:43)
[2024-06-16] MEDS: Doxepin Hydrochloride 10 MG Capsule PO (20:43)
[2024-06-17] MEDS: Enoxaparin 40 MG/0.4 ML Syringe SC (05:45)
[2024-06-17] MEDS: Sodium Chloride 0.65% 1 SPRAY SPRAY.BTL 2 SPRAY NASAL ×2 (05:46→13:31)
[2024-06-17] MEDS: Amiodarone 200 MG Tablet PO (07:49)
[2024-06-17] MEDS: Aspirin E.C. 81 MG Tablet PO (07:50)
[2024-06-17] MEDS: Furosemide 40 MG Tablet PO (07:50)
[2024-06-17] MEDS: Potassium Chloride Oral Tablet 20 MEQ PO ×2 (07:50→17:43)
[2024-06-17] MEDS: amLODIPine 10 MG Tablet PO (07:50)
[2024-06-17] MEDS: Multivitamins,Therapeutic Tablet 1 TABLET PO (07:50)
[2024-06-17 07:51] VITALS: BP 149/65; PULSE 66
[2024-06-17] MEDS: Metoprolol(XL)Succ 50 MG Tablet PO ×2 (07:51→20:38)
[2024-06-17] MEDS: Polyethylene Glycol 3350 17 GM PACKET PO (07:51)
[2024-06-17 10:00] VITALS: BP 149/65; PULSE 67; RESP 18; TEMP 37.1; O2SAT 93
[2024-06-17 12:15] VITALS: O2SAT 96
[2024-06-17] MEDS: Tuberculin,Purif.prot.deriv. 50 TU/ML Vial 0.1 ML ID (13:32)
[2024-06-17 20:36] VITALS: BP 149/69; PULSE 67
[2024-06-17] MEDS: Senna/Docusate Sodium 1 Tablet 2 TABLET PO (20:37)
[2024-06-17 20:38] VITALS: PULSE 67
[2024-06-17] MEDS: Doxepin Hydrochloride 10 MG Capsule PO (20:38)
[2024-06-17] MEDS: MELATONIN 3 MG TABLET PO (20:38)
[2024-06-17] MEDS: Ezetimibe 10 MG Tablet PO (20:39)
[2024-06-17] MEDS: Atorvastatin Calcium 80 MG Tablet PO (20:39)
[2024-06-18] MEDS: Sodium Chloride 0.65% 1 SPRAY SPRAY.BTL 2 SPRAY NASAL ×3 (06:03→19:46)
[2024-06-18] MEDS: Enoxaparin 40 MG/0.4 ML Syringe SC (06:03)
[2024-06-18] MEDS: Amiodarone 200 MG Tablet PO (07:50)
[2024-06-18] MEDS: Aspirin E.C. 81 MG Tablet PO (07:50)
[2024-06-18] MEDS: Potassium Chloride Oral Tablet 20 MEQ PO ×2 (07:50→16:38)
[2024-06-18] MEDS: Multivitamins,Therapeutic Tablet 1 TABLET PO (07:51)
[2024-06-18] MEDS: amLODIPine 10 MG Tablet PO (07:51)
[2024-06-18] MEDS: Polyethylene Glycol 3350 17 GM PACKET PO (07:51)
[2024-06-18] MEDS: Furosemide 40 MG Tablet PO (07:51)
[2024-06-18 07:52] VITALS: BP 146/73; PULSE 68
[2024-06-18] MEDS: Metoprolol(XL)Succ 50 MG Tablet PO ×2 (07:52→19:48)
[2024-06-18] MEDS: Senna/Docusate Sodium 1 Tablet 2 TABLET PO ×2 (07:52→19:47)
[2024-06-18 07:58] VITALS: BP 146/73; PULSE 68; RESP 18; TEMP 36.4; O2SAT 93
[2024-06-18 19:40] VITALS: BP 129/62; PULSE 70; RESP 17; TEMP 36.8; O2SAT 93
[2024-06-18] MEDS: Atorvastatin Calcium 80 MG Tablet PO (19:46)
[2024-06-18] MEDS: Doxepin Hydrochloride 10 MG Capsule PO (19:47)
[2024-06-18 19:48] VITALS: PULSE 70
[2024-06-18] MEDS: Ezetimibe 10 MG Tablet PO (19:49)
[2024-06-19] MEDS: Enoxaparin 40 MG/0.4 ML Syringe SC (05:31)
[2024-06-19] MEDS: Sodium Chloride 0.65% 1 SPRAY SPRAY.BTL 2 SPRAY NASAL ×3 (05:31→20:29)
[2024-06-19 08:51] VITALS: PULSE 66
[2024-06-19] MEDS: Aspirin E.C. 81 MG Tablet PO (08:51)
[2024-06-19] MEDS: amLODIPine 10 MG Tablet PO (08:51)
[2024-06-19] MEDS: Metoprolol(XL)Succ 50 MG Tablet PO ×2 (08:51→20:31)
[2024-06-19] MEDS: Potassium Chloride Oral Tablet 20 MEQ PO ×2 (08:51→18:05)
[2024-06-19] MEDS: Amiodarone 200 MG Tablet PO (08:51)
[2024-06-19] MEDS: Multivitamins,Therapeutic Tablet 1 TABLET PO (08:51)
[2024-06-19] MEDS: Furosemide 40 MG Tablet PO (08:52)
[2024-06-19] MEDS: Polyethylene Glycol 3350 17 GM PACKET PO (08:52)
[2024-06-19 12:59] VITALS: BP 138/68; PULSE 66; RESP 16; TEMP 36.7; O2SAT 93
--- NOTE | 2024-06-19 15:55 | CASEMGMT ---
Addendum entered by Franci Rosales 06/23/24 10:41: SW spoke with RT about obtaining overnight trending pulse ox results, after a failed 4 attempts to receive results yesterday. RT explained to SW that d/t unknown reasons, there was not an order found to complete new study on requested date of 06/21, thus no results to be provided. RT has results from RU stay, but none within 48 hrs per guidelines for ordering O2 at home. - CORTNEY collaborated with charge nurse and if pt agrees to remain another day, the order and testing can be completed. - CORTNEY spoke with pt to update on above. SW requested for to remain another day to receive the test and proper O2 but pt denied. Pt stated he does not want to use the O2 or receive the sleep study. SW noted it was his right to make that decision knowing the risks. Pt to proceed with DC as planned. - CORTNEY phoned dtr, Keerthi, to notify of error with testing and no O2 ordered at DC. Keerthi is aware of pt's refusals, as that is his baseline, and understands risks for stroke, etc, per dtr. Dtr is understanding of error and will proceed with DC. - CORTNEY spoke with Jacy to cancel referral. Original Note: Social Work SW spoke with pt about his request to DC home. SW updated on waiting for sleep lab availability. Pt stated he does not want to do the sleep study at [place]; he prefers to go home first, then complete it at a later date. SW accepted and educated this worker will still coordinate overnight O2 for pt to use at home. Pt agreed. Pt requesting to DC home 06/23. IDT agreeable. Pt denied needing BSC or any other DME. SW offered HHC or OP therapy. Pt prefers OP therapy at [facility]. SW to coordinate. Family can transport pt at [place]. - CORTNEY updated ELIZABETH via secure email of DC plans for pt. - CORTNEY faxed referral for PT to [facility] Plan: DC home alone 06/23, [facility] OP PT, overnight O2 Franci Rosales EASEMENT WORKER SAIL LAY OUT WORKER
--- NOTE | 2024-06-19 19:18 | DS.PCM_ITS ---
Providers Date of Admission: 06/09/24 Primary Care Physician: Dr. Kenn Soto MD Reason For Visit: CABG Diagnosis Discharge Diagnosis (1) Debility: Status: Acute Code(s): R53.81 - Other malaise (2) S/P CABG x 3: Status: Acute Code(s): Z95.1 - Presence of aortocoronary bypass graft (3) S/P aortic aneurysm repair: Status: Acute Code(s): Z98.890 - Other specified postprocedural states; Z86.79 - Personal history of other diseases of the circulatory system (4) Acute delirium: Status: Acute Code(s): R41.0 - Disorientation, unspecified (5) Atrial fibrillation with RVR: Status: Acute Code(s): I48.91 - Unspecified atrial fibrillation (6) Bilateral pleural effusion: Status: Resolved Code(s): J90 - Pleural effusion, not elsewhere classified (7) Urinary tract infection: Status: Acute Code(s): N39.0 - Urinary tract infection, site not specified (8) Essential (primary) hypertension: Status: Inactive Code(s): I10 - Essential (primary) hypertension (9) History of prostate cancer: Status: Chronic Code(s): Z85.46 - Personal history of malignant neoplasm of prostate (10) Hyperlipidemia: Status: Inactive Code(s): E78.5 - Hyperlipidemia, unspecified Qualifiers: Hyperlipidemia type: unspecified Qualified Code(s): E78.5 - Hyperlipidemia, unspecified (11) CAD (coronary artery disease): Status: Inactive Code(s): I25.10 - Atherosclerotic heart disease of [place] coronary artery without angina pectoris Qualifiers: Coronary Disease-Associated Artery/Lesion type: [place] artery [place] vs. transplanted heart: [place] heart Associated angina: without angina Q ualified Code(s): I25.10 - Atherosclerotic heart disease of [place] coronary artery without angina pectoris (12) Obstructive sleep apnea: Status: Acute Code(s): G47.33 - Obstructive sleep apnea (adult) (pediatric) (13) Insomnia: Status: Acute Code(s): G47.00 - Insomnia, unspecified (14) Morbid obesity: Status: Acute Code(s): E66.01 - Morbid (severe) obesity due to excess calories Plan 73 year old male with below past medical history hospitalized for cabg x 3, aortic aneurysm repair 05/16/2024, postoperative course complicated by delirium, acute blood loss anemia, atrial fibrillation with rapid ventricular response, admitted to , complicated by right pleural effusion requiring thoracentesis, P. Mirabilis urinary tract infection, transferred to TCU with debility, here for rehabilitation, strengthening, prior to discharge home alone. * Debility - PT/OT. * Pain - Tylenol 1000mg q6 prn pain (1-5), Oxycodone 5mg q4 prn pain (6-10). * Bowel - Miralax 17gm daily, senna/colace 2 tablets bid, Dulcolax 10mg pr x 1 prn, MOM 30mL po x 1 prn. * Adult immunization - Administer pneumonia vaccine, covid vaccine, flu vaccine as appropriate. * DVT prophylaxis - Lovenox 40mg sc daily. * Atrial fibrillation - Metoprolol succinate 50mg bid, Amiodarone 200mg daily, Aspirin 81mg daily. * Hypertension - Metoprolol succinate 50mg bid, Amlodipine 10mg daily. * Hyperlipidemia - Atorvastatin 80mg qhs, Zetia 10mg qhs. * HFpEF - Metoprolol succinate 50mg bid, Furosemide 40mg daily. * Nutrition - Yunior 1 packet bidcm, MVI 1 tablet daily. * Hypokalemia - KCL 20meq bidcm. * Dry nares - Sodium chloride 0.65% 2 sprays nasal tid. The following psychotropic medication was present on admission: Doxepin 10mg qhs. Psychotropic medication therapy is indicated for a diagnosis of: Insomnia. Based on my clinical evaluation, continuation of the medication is necessary at this time. Gradual dose reduction plan (select one): ____ GDR will be attempted. Will monitor patient symptoms and behaviors in response to GDR. __x__ GRD contraindicated. Reason contraindicated: stable chronic use. Medications at Discharge Home Medications aspirin 81 mg tablet,delayed release (Adult Aspirin Regimen) 81 mg PO DAILY heart health 05/02/24 ezetimibe 10 mg tablet (Zetia) 10 mg PO QHS cholesterol 05/25/24 amlodipine 10 mg tablet 10 mg PO DAILY BP #0 tabs 06/08/24 multivitamin 1 tab PO DAILYCM vitamin #0 tabs 06/08/24 sodium chloride 0.65 % nasal spray aerosol (Deep Sea Nasal) 2 spray NASAL TID nasal moisturizer #0 mL 06/08/24 amiodarone 200 mg tablet 200 mg PO DAILYCM 30 days #30 tabs 06/19/24 atorvastatin 80 mg tablet 80 mg PO QHS 30 days #30 tabs 06/19/24 doxepin 10 mg capsule 10 mg PO QHS 30 days #30 caps 06/19/24 furosemide 40 mg tablet 40 mg PO DAILY 30 days #30 tabs 06/19/24 melatonin 3 mg tablet 3 mg PO QHS #0 tabs 06/19/24 metoprolol succinate 50 mg tablet,extended release 24 hr 50 mg PO BID 30 days #60 tabs 06/19/24 potassium chloride 20 mEq tablet,extended release(part/cryst) 20 meq PO BIDCM 30 days #60 tabs 06/19/24 Hospital Course Operations - (See below.) Procedures None Summary of Care Provided Minutes Spent on Discharge: 35 Hospital Course: 73 year old male with below past medical history hospitalized for cabg x 3, aortic aneurysm repair 05/16/2024, postoperative course complicated by delirium, acute blood loss anemia, atrial fibrillation with rapid ventricular response, admitted to [facility], complicated by right pleural effusion requiring thoracentesis, P. Mirabilis urinary tract infection, transferred to TCU with debility, here for rehabilitation, strengthening, prior to discharge home alone. Discharge home alone 06/23/2024, [facility] outpatient PT, overnight oxygen. Patient requires 2LPM of oxygen via nasal cannula d/t obstructive sleep apnea, nighttime hypoxia, congestive heart failure; requires a concentrator and portable O2 tanks to allow patient to be mobile in the home and the community; O2 will improve the patient's condition in the home setting. Physical Exam Const alert General Appearance: cooperative HEENT normocephalic Eyes PERRL and EOMs intact bilaterally Neck supple, no JVD and no carotid bruits Resp normal respiratory effort, normal air movement and clear to auscultation bilaterally Cardio regular rate and regular rhythm GI normal to inspection, nondistended, normoactive bowel sounds, non-tender and non-distended Extremity normal capillary refill General Extremity: Negative for edema Skin no rashes or lesions noted General Skin Exam: no breakdown Psych affect normal Appearance: appropriate Weight / BMI Weight Weight: 130.952 kg Body Mass Index (BMI) 41.4 ABG / Lab / Microbiology Data 06/16/24 05:35 06/16/24 05:35 D/C Instructions Discharge Diet: No restrictions Discharge Activity: Return to Normal Activity, May Shower and Use Walker Weight Bearing Status: Weight bearing as tolerated Call your doctor if you observe: Fever of 101 or Higher, Inability to urinate, Inability to have a bowel movement, Shortness of breath, Dizziness, Fainting spells, Swelling in the ankles, Chest pain and Uncontrolled pain DC O2, CPAP, BIPAP Needs Home O2 Discharge instructions: Yes Type of respiratory needs?: Oxygen (2 liters) Oxygen frequency: With Sleeping Oxygen liters per minute when sleepin DC home with Oxygen: Yes Home O2 MD Review: I have reviewed the oxygen testing, and the patient qualifies for home oxygen equipment and portability. The patient is mobile in the home and the community. Additional Instructions: Discharge home alone 06/23/2024, [facility] outpatient PT, overnight oxygen. Patient requires 2LPM of oxygen via nasal cannula d/t obstructive sleep apnea, nighttime hypoxia, congestive heart failure; requires a concentrator and portable O2 tanks to allow patient to be mobile in the home and the community; O2 will improve the patient's condition in the home setting. Please Follow Up With: Ze Gomez When: As scheduled. Meaningful Use Info Meaningful Use Meaningful Use Diagnoses (Choose all that apply): None applicable Ischemic Stroke Statin Dosing Therapy Reference: STATIN DOSE THERAPY REFERENCE: * Patients > 75 years receive moderate or high dose statin therapy. * Patients 75 years or YOUNGER should receive HIGH intensity statin dose unless contraindicated. You will be required to document reason for non-treatment if statin daily dose does not meet guidelines. HIGH DOSE STATIN THERAPY DAILY Atorvastatin > than or = to 40 mg Rosuvastatin > than or = to 20 mg Amlodipine + Atorvastatin > than or = to 2.5/40 mg Ezetimibe + Simvastatin 10/80 mg Simvastatin 80mg Discharge Plan Admission Admit Date/Time: 06/09/24 13:00 Primary Reason for Your Visit: Debility. Attending Provider: Maksim Bowen Chi Primary Care Provider: Kenn Soto Instructions Additional Instructions / Restrictions: Discharge home alone 06/23/2024, [facility] outpatient PT, overnight oxygen. Patient requires 2LPM of oxygen via nasal cannula d/t obstructive sleep apnea, nighttime hypoxia, congestive heart failure; requires a concentrator and portable O2 tanks to allow patient to be mobile in the home and the community; O2 will improve the patient's condition in the home setting. Discharge Orders/Prescriptions Prescriptions: New furosemide 40 mg Tablet 40 mg PO DAILY 30 Days Qty: 30 0RF atorvastatin 80 mg Tablet 80 mg PO QHS 30 Days Qty: 30 0RF amiodarone 200 mg Tablet 200 mg PO DAILYCM 30 Days Qty: 30 0RF metoprolol succinate 50 mg Tablet Extended Release 24 Hr 50 mg PO BID 30 Days Qty: 60 0RF melatonin 3 mg Tablet 3 mg PO QHS Qty: 0 0RF doxepin 10 mg Capsule 10 mg PO QHS 30 Days Qty: 30 0RF potassium chloride 20 mEq Tablet,Er Particles/Crystals 20 meq PO BIDCM 30 Days Qty: 60 0RF Continued aspirin [Adult Aspirin Regimen] 81 mg tablet,delayed release (DR/EC) 81 mg PO DAILY ezetimibe [Zetia] 10 mg tablet 10 mg PO QHS multivitamin Tablet 1 tab PO DAILYCM Qty: 0 0RF amlodipine 10 mg Tablet 10 mg PO DAILY Qty: 0 0RF Deep Sea Nasal 0.65 % Aerosol,[place] 2 spray NASAL TID Qty: 0 0RF Discontinued atorvastatin 40 mg tablet 80 mg PO QHS amiodarone 400 mg tablet 400 mg PO BID furosemide [Lasix] 40 mg tablet 40 mg PO DAILY oxycodone 5 mg tablet 5 mg PO Q6H PRN (Reason: pain 7-10) metoprolol succinate [Toprol XL] 50 mg tablet extended release 24 hr 50 mg PO BID amiodarone 200 mg Tablet 200 mg PO DAILY Qty: 0 0RF doxepin 10 mg Capsule 10 mg PO QHS Qty: 0 0RF acetaminophen 500 mg Tablet 1,000 mg PO Q8 PRN (Reason: Headache/Fever (T>100f)) Qty: 0 0RF magnesium hydroxide 400 mg/5 mL Suspension 30 ml PO X1 PRN (Reason: Constipation) Qty: 0 0RF bisacodyl 10 mg Suppository 10 mg DC X1 PRN (Reason: Constipation) Qty: 0 0RF Yunior (with collagen) 7-7-1.5 gram Powder In Packet 1 packet PO BIDCM Qty: 0 0RF sennosides-docusate sodium [Stimulant Laxative Plus] 8.6-50 mg Tablet 2 tab PO BID PRN (Reason: bowels) Qty: 0 0RF potassium chloride 20 mEq tablet extended release 20 meq PO BID Qty: 1 0RF Referrals / Follow Up: Ze Gomez [Other] (Cardiovascular follow-up afer DC from [facility]) Kenn Soto MD [Primary Care Provider] - 06/29/24 8:00 am Disposition Disposition (needs filled in before D/C Order can be placed): Home, Self Care
[2024-06-19 20:28] VITALS: BP 137/72; PULSE 67
[2024-06-19] MEDS: Atorvastatin Calcium 80 MG Tablet PO (20:30)
[2024-06-19 20:31] VITALS: BP 137/72; PULSE 67
[2024-06-19] MEDS: MELATONIN 3 MG TABLET PO (20:31)
[2024-06-19] MEDS: Doxepin Hydrochloride 10 MG Capsule PO (20:32)
[2024-06-19] MEDS: Ezetimibe 10 MG Tablet PO (20:32)
[2024-06-19] MEDS: Senna/Docusate Sodium 1 Tablet 2 TABLET PO (20:33)
[2024-06-20 03:39] VITALS: PULSE 64
[2024-06-20 05:00] VITALS: BMI 41.5
[2024-06-20] MEDS: Sodium Chloride 0.65% 1 SPRAY SPRAY.BTL 2 SPRAY NASAL ×3 (05:31→21:04)
[2024-06-20] MEDS: Enoxaparin 40 MG/0.4 ML Syringe SC (05:32)
[2024-06-20 07:59] VITALS: BP 152/74; PULSE 67; RESP 16; TEMP 37.2; O2SAT 91
[2024-06-20] MEDS: Amiodarone 200 MG Tablet PO (08:03)
[2024-06-20] MEDS: Multivitamins,Therapeutic Tablet 1 TABLET PO (08:03)
[2024-06-20] MEDS: Furosemide 40 MG Tablet PO (08:03)
[2024-06-20] MEDS: Aspirin E.C. 81 MG Tablet PO (08:03)
[2024-06-20] MEDS: Potassium Chloride Oral Tablet 20 MEQ PO ×2 (08:03→17:38)
[2024-06-20 08:04] VITALS: PULSE 67
[2024-06-20] MEDS: Polyethylene Glycol 3350 17 GM PACKET PO (08:04)
[2024-06-20] MEDS: Senna/Docusate Sodium 1 Tablet 2 TABLET PO ×2 (08:04→21:05)
[2024-06-20] MEDS: amLODIPine 10 MG Tablet PO (08:04)
[2024-06-20] MEDS: Metoprolol(XL)Succ 50 MG Tablet PO ×2 (08:04→21:05)
[2024-06-20 13:45] VITALS: BMI 41.3
[2024-06-20 21:02] VITALS: BP 146/69; PULSE 69
[2024-06-20] MEDS: Atorvastatin Calcium 80 MG Tablet PO (21:04)
[2024-06-20 21:05] VITALS: BP 146/69; PULSE 69
[2024-06-20] MEDS: MELATONIN 3 MG TABLET PO (21:05)
[2024-06-20] MEDS: Doxepin Hydrochloride 10 MG Capsule PO (21:06)
[2024-06-20] MEDS: Ezetimibe 10 MG Tablet PO (21:07)
[2024-06-21 04:21] VITALS: BMI 40.9
[2024-06-21] MEDS: Sodium Chloride 0.65% 1 SPRAY SPRAY.BTL 2 SPRAY NASAL ×3 (05:42→20:45)
[2024-06-21] MEDS: Enoxaparin 40 MG/0.4 ML Syringe SC (05:43)
[2024-06-21] MEDS: Multivitamins,Therapeutic Tablet 1 TABLET PO (08:13)
[2024-06-21] MEDS: Aspirin E.C. 81 MG Tablet PO (08:13)
[2024-06-21] MEDS: Furosemide 40 MG Tablet PO (08:13)
[2024-06-21] MEDS: amLODIPine 10 MG Tablet PO (08:13)
[2024-06-21] MEDS: Amiodarone 200 MG Tablet PO (08:13)
[2024-06-21] MEDS: Potassium Chloride Oral Tablet 20 MEQ PO ×2 (08:13→16:04)
[2024-06-21 08:14] VITALS: BP 146/72; PULSE 67
[2024-06-21] MEDS: Metoprolol(XL)Succ 50 MG Tablet PO ×2 (08:14→20:45)
[2024-06-21 08:16] VITALS: BP 146/72; PULSE 67; RESP 18; O2SAT 93
[2024-06-21 20:45] VITALS: PULSE 66
[2024-06-21] MEDS: MELATONIN 3 MG TABLET PO (20:45)
[2024-06-21] MEDS: Senna/Docusate Sodium 1 Tablet 2 TABLET PO (20:45)
[2024-06-21] MEDS: Doxepin Hydrochloride 10 MG Capsule PO (20:45)
[2024-06-21] MEDS: Atorvastatin Calcium 80 MG Tablet PO (20:45)
[2024-06-21] MEDS: Ezetimibe 10 MG Tablet PO (20:45)
[2024-06-21 20:47] VITALS: BP 142/76; PULSE 66
[2024-06-22 05:00] VITALS: BMI 90.4
[2024-06-22] MEDS: Enoxaparin 40 MG/0.4 ML Syringe SC (05:13)
[2024-06-22 08:57] VITALS: PULSE 70
[2024-06-22] MEDS: amLODIPine 10 MG Tablet PO (08:57)
[2024-06-22] MEDS: Amiodarone 200 MG Tablet PO (08:57)
[2024-06-22] MEDS: Metoprolol(XL)Succ 50 MG Tablet PO ×2 (08:57→22:08)
[2024-06-22] MEDS: Multivitamins,Therapeutic Tablet 1 TABLET PO (08:57)
[2024-06-22] MEDS: Furosemide 40 MG Tablet PO (08:58)
[2024-06-22] MEDS: Polyethylene Glycol 3350 17 GM PACKET PO (08:58)
[2024-06-22] MEDS: Aspirin E.C. 81 MG Tablet PO (08:58)
[2024-06-22] MEDS: Senna/Docusate Sodium 1 Tablet 2 TABLET PO ×2 (08:58→22:07)
[2024-06-22] MEDS: Potassium Chloride Oral Tablet 20 MEQ PO ×2 (08:58→17:55)
[2024-06-22 09:30] VITALS: BMI 41.0
--- NOTE | 2024-06-22 11:55 | MDS.RN ---
Information for the MDS was obtained from review of the clinical record, interview of resident, staff, and direct observation of resident?s care.
--- NOTE | 2024-06-22 13:11 | MDS.RN ---
Pain assessment for MDS complete.
[2024-06-22] MEDS: Sodium Chloride 0.65% 1 SPRAY SPRAY.BTL 2 SPRAY NASAL ×2 (13:23→22:06)
[2024-06-22 15:34] VITALS: BP 140/70; PULSE 66; RESP 14; TEMP 36.9; O2SAT 94
[2024-06-22 22:03] VITALS: BP 147/82; PULSE 67
[2024-06-22] MEDS: Doxepin Hydrochloride 10 MG Capsule PO (22:07)
[2024-06-22] MEDS: MELATONIN 3 MG TABLET PO (22:07)
[2024-06-22] MEDS: Atorvastatin Calcium 80 MG Tablet PO (22:07)
[2024-06-22 22:08] VITALS: BP 147/82; PULSE 67
[2024-06-22] MEDS: Ezetimibe 10 MG Tablet PO (22:08)
[2024-06-23 05:00] VITALS: BMI 41.0
[2024-06-23] MEDS: Sodium Chloride 0.65% 1 SPRAY SPRAY.BTL 2 SPRAY NASAL (05:50)
[2024-06-23] MEDS: Enoxaparin 40 MG/0.4 ML Syringe SC (05:51)
[2024-06-23 05:52] LABS: Absolute Neutrophil Count 4.7 X10^3/uL (2.0-7.7); Basophil# 0.08 X10^3/uL; Basophil% 1.1 % (0-1); Eosinophil# 0.24 X10^3/uL; Eosinophils% 3.4 % (0-5); Hematocrit 33.9 % (40-54); Lymphocyte % 18.4 % (19-41); Mean Corp Hgb Conc 32.4 g/dL (32-36); Mean Corpuscular Hgb 30.1 pg (27.0-32.0); Mean Corpuscular Volume 92.6 fL (80-94); Mean Platelet Vol. 9.1 fl (6.2-12.0); Monocyte# 0.75 X10^3/uL; Monocyte% 10.6 % (0-10); NRBC Flagged by Analyzer 0 % (0-5); Neutrophil # 4.67 X10^3/uL (2.7-7.7); Neutrophil % 66.1 % (47-70); Platelet Count 267 K/mm3 (150-450); RBC Distribution Width CV 14.5 % (11.6-14.6); RBC Distribution Width SD 49.4 fl (35.1-43.9); Red Blood Count 3.66 M/mm3 (4.6-6.2); White Blood Count 7.1 K/mm3 (4.4-11.0)
[2024-06-23 06:04] VITALS: PULSE 68; O2SAT 92
[2024-06-23 06:21] LABS: Anion Gap 10 (5-15); BUN 11 mg/dL (4-19); BUN/Creat Ratio 10.5 RATIO (10-20); Calcium,Total 8.9 mg/dL (7.6-11.0); Carbon Dioxide 25.5 mmol/L (21.0-32.0); Chloride 107 mmol/L (98-108); Creatinine, Serum 1.07 mg/dL (0.70-1.20); EST Glomerular Filtration Rate 74 (>60); Estimated Creatinine Clearance 84.56 ml/min (50-250); Glucose 102 mg/dL (70-99); Potassium 3.5 mmol/L (3.3-5.1); Sodium Level 142 mmol/L (133-145)
[2024-06-23 08:54] VITALS: BP 144/72; PULSE 70; RESP 17; TEMP 36.8; O2SAT 96
[2024-06-23] MEDS: Aspirin E.C. 81 MG Tablet PO (08:56)
[2024-06-23] MEDS: Amiodarone 200 MG Tablet PO (08:56)
[2024-06-23] MEDS: Potassium Chloride Oral Tablet 20 MEQ PO (08:56)
[2024-06-23 08:57] VITALS: PULSE 70
[2024-06-23] MEDS: Multivitamins,Therapeutic Tablet 1 TABLET PO (08:57)
[2024-06-23] MEDS: Senna/Docusate Sodium 1 Tablet 2 TABLET PO (08:57)
[2024-06-23] MEDS: Furosemide 40 MG Tablet PO (08:57)
[2024-06-23] MEDS: Polyethylene Glycol 3350 17 GM PACKET PO (08:57)
[2024-06-23] MEDS: amLODIPine 10 MG Tablet PO (08:57)
[2024-06-23] MEDS: Metoprolol(XL)Succ 50 MG Tablet PO (08:57)
== END 2024-06-23 11:28 | disposition home or self-care (01) | DRG 949 ==
PROVIDERS: Admitting Provider Family Medicine Geriatric Medicine; PCP Family Medicine; Referring Provider Family Medicine Geriatric Medicine; Visit Provider Family Medicine Geriatric Medicine
DX: Z48.812 Encounter for surgical aftercare following surgery on the circulatory system (principal); N39.0 Urinary tract infection, site not specified; J91.8 Pleural effusion in other conditions classified elsewhere; Z68.41 Body mass index [BMI] 40.0-44.9, adult; I50.32 Chronic diastolic (congestive) heart failure; I11.0 Hypertensive heart disease with heart failure; I48.91 Unspecified atrial fibrillation; E66.01 Morbid (severe) obesity due to excess calories; I25.10 Atherosclerotic heart disease of native coronary artery without angina pectoris; E87.6 Hypokalemia; G47.33 Obstructive sleep apnea (adult) (pediatric); E78.5 Hyperlipidemia, unspecified; Z95.1 Presence of aortocoronary bypass graft; G47.00 Insomnia, unspecified; R41.0 Disorientation, unspecified; B96.4 Proteus (mirabilis) (morganii) as the cause of diseases classified elsewhere; Z79.899 Other long term (current) drug therapy; Z79.82 Long term (current) use of aspirin; Z23 Encounter for immunization
CPT/HCPCS: 36415; 80048; 80061; 85025; 90480; 91322; 97110; 97162; 97166; 97530; 97535; 97802

== ENCOUNTER → 2024-07-05 | Outpatient (CLI) | payer MEDICARE, OTHER, SELFPAY ==
--- NOTE | 2024-07-05 14:12 | CR.HP_ITS ---
CR - History & Physical General Arrival date:: 07/05/24 Arrival time:: 14:13 Date of Referral:: 07/04/24 Date of CR Evaluation:: 07/05/24 Referring Physician: Dr. Olmedo Primary Diagnosis: CABG History of Present Cardiac Event Onset Date Coronary Artery Bypass Graft:: Yes (onset 05/16/24) Vessel: BELL to LAD and vein graft to the diagonal and vein graft to the PDA Medications Ambulatory Orders ?Medication ?Instructions ?Recorded multivitamin 1 tab PO DAILYCM vitamin #0 tabs 06/08/24 sodium chloride 0.65 % nasal spray 2 spray NASAL TID n [place] 06/08/24 aerosol (Deep Sea Nasal) moisturizer #0 mL atorvastatin 80 mg tablet 80 mg PO QHS 30 days #30 tab s 06/19/24 doxepin 10 mg capsule 10 mg PO QHS 30 days #30 cap s 06/19/24 furosemide 40 mg tablet 40 mg PO DAILY 30 days #30 t abs 06/19/24 melatonin 3 mg tablet 3 mg PO QHS #0 tabs 06/19/24 metoprolol succinate 50 mg 50 mg PO BID 30 days #60 ta bs 06/19/24 tablet,extended release 24 hr potassium chloride 20 mEq 20 meq PO BIDCM 30 days #60 tabs 06/19/24 tablet,extended release(part/cryst) amiodarone 200 mg tablet 200 mg PO DAILYCM 06/29/24 docusate sodium 50 mg capsule 50 mg PO BID 06/29/24 Allergies Allergies No Known Allergies Allergy (Verified 06/29/24 11:38) Sleep Disorder Evaluation Hx of Sleep Apnea: No Do you snore loudly (louder than talking or can be heard through closed doors)?: No Do you often feel tired/ fatigued/ sleepy during daytime?: No Has anyone observed you stop breathing during sleep?: No History of Hypertension (for STOP score): Yes STOP Results: Negative Advanced Directives Advanced Directives Do you have a Healthcare Power of Chief [employer]ibr[employer] Department?: Yes Living Will: Yes Advance Directives Information Provided: No Advance Directives on File: No DNR Order?:: No Past Medical History Covid-19 Screening Physicial Symptoms Other Clinical Concerns Exposure Risk Pertinent Comorbidities 65 years or older:: Yes Has a serious heart condition:: Yes Past Medical Illness Past Medical History (Updated 07/01/24 @ 00:01 by Background Daemon) Urinary incontinence R32 Elevated coronary artery calcium score R93.1 Osteoarthritis M19.90 History of prostate cancer Z85.46 Essential (primary) hypertension I10 Hyperlipidemia E78.5 CAD (coronary artery disease) I25.10 Obesity, morbid, BMI 40.0-49.9 E66.01 Past Surgical History Past Surgical History (Updated 07/01/24 @ 00:01 by Background Daemon) S/P CABG x 2 Z95.1 S/P CABG x 3 (05/16/24) Z95.1 BELL to LAD, saphenous vein graft to the diagonal and saphenous vein graft to PDA History of aortic aneurysm repair (05/16/24) Z98.890, Z86.79 with a 30 mm dacryon woven graft Hx of prostatectomy Z90.79 Hx of appendectomy Z90.49 History of hip replacement (~03/2023) Z96.649 Family History Summary Family History Other CVA (cerebral vascular accident) Social History Alcohol Use Alcohol Usage: No Occupation Occupation (List type of work in comments):: Employed (has a [employer] business) Social Environment Status Marital Status: Current Living Arrangements Living Environment:: Alone Children How many children do you have?: 5 Do any of your children live nearby?: Yes Safety Do you feel safe in your surroundings?: Yes Assistance Do you need any assistance at home?: no Review of Systems Review of Systems Hints Review of Present Symptoms: Reports Shortness of Breath with Exertion, Fatigue, Appetite - Normal, Appetite - Special Diet and Sleep - Normal; Denies Shortness of Breath at Rest, PVD, Operative Discomfort, Angina, Wound Healing, Dizziness/Lightheadedness, Heart Arrhythmia/Irregularities or Sexual Changes Pain Is Patient Pain Free?: No Risk Factor Assessment Chief Complaint Chief Complaint: CABG Vital Signs Pulse Ox: 98 Blood Pressure: 135/78 Pulse Pulse Rate: 74 Hypertension On medication(s)?: yes Blood Pressure Sitting - Right Arm: 135/78 Obesity Height: 5 ft 10 in Weight:: 286 lb Weight in Pounds: 286.0 lbs Body Mass Index (BMI): 41.0 Nutritional Referral for Obesity: No Risk Stratification Risk Guidelines: Moderate Risk: Risk Factor for Smoking, Risk Factor for Diabetes and Risk Factor for Depression and Highest Risk: Risk Factor for Dyslipidemia, Risk Factor for Obesity, Risk Factor for Hypertension and Risk Factor for Sedentary Lifestyle For Smoking Smoking Risk Guidelines For Dyslipidemia Dyslipidemia Risk Guidelines For Diabetes Mellitus Diabetes Risk Guidelines For Obesity/Overweight Obesity/Overweight Risk Guidelines For Hypertension Hypertension Risk Guidelines For Sedentary Lifestyle Sedentary Lifestyle Risk Guidelines For Depression Depression Risk Guidelines Family History Family History Other CVA (cerebral vascular accident) Motivation Motivation to Participate On a scale of 1 to 10, how prepared are you to commit to attending program?: 8 What do you see as barriers to successfully being able to complete the program?: nothing What do you see as the benefits of succesfully completing the program? In other words, what do you hope to get out of participating in the program?: walk Are there issues you are dealing with that will interfere with completing the program?: no Do you have a spouse or signficant other, family or friends who will help support you to complete the program?: yes
[2024-07-05 14:19] VITALS: BP 135/78; PULSE 74; O2SAT 98
--- NOTE | 2024-07-05 14:20 | CR.ITP_ITS ---
Diagnosis General Information Admitting Diagnosis: CABG Personal Learning Style:: Audio/Visual Barriers to Learning: No Barriers Stage of change r/t lifestyle modifications:: Contemplation Gave educational material for:: Treating Heart Disease, How The Heart Works, What it means to have Heart Disease, How Coronary Artery Disease is Diagnosed, Heart Procedures, What Heart Medications Do, Risk Factors & Modifications, Living an Active Life, Nutrition, Emotions & Heart Disease, Stress Management & Relaxation and Sleep Disorders & Heart Disease Education/Goals Cardiac Rehabilitation Goals Personal Goals: Initial Assessment: Improve energy level, Participate in home exercise program, Get back to work, or to resume activities faster, Improve knowledge of cardiac disease, Improve muscle strength and endurance, Improve diet and eating habits (eat healthier) and Control risk factors (learn risk factor modification) Scale for measuring improvement of personal goals Diagnosis & Disease Process Outcomes/Goals: Pt IDs own risk factors & lifestyle modifications by Session 10, Verbalizes symptoms of angina & response by session 3., Pt independently manages and Other Additional Outcomes/Goals: Plan/Interventions: Assist Pt to ID & engage in lifestyle modification to reduce CVD risk, Instruct on individual risk factors, Review symptoms of angina & emergency actions, Review secondary diagnosis & identify educational needs. and Other see comment 30 day Reassessments:: Not Met 30 day Reassessments:: Not Met 30 day Reassessments:: Not Met 30 day Reassessments:: Not Met Final Reassessments:: Not Met Safety Referral to Physical Therapy: No Referral to [facility] Case Management: No Fall Risk Assessed:: Yes Assistive Devices:: Cane and Wheelchair Exercise - Initial Assessment Visit Date of Eval: 07/05/24 (initial eval ) Mets: Pre-: >3 METS for 30 minutes by discharge, >5 METS for 30 minutes by discharge, >7 METS for 30 minutes by discharge and Unable to meet goal due to: (see comment below) Physician Prescribed Exercise Modalities: Treadmill, [employer] Airdyne AD-7, SciFit Stepper, SciFit Pro-II Ergometer and SciFit Lateral [place] Frequency: 3x/week for 12 weeks [36 sessions] Intensity: 60-80% of age predicted maximum heart rate reserve Duration: 30 - 45 minutes Current METSs:: 3 Target Heart Rate:: 96-111 Resting Blood Pressure: 135/78 EKG Type: SR with marked sinus arrhythmia with ST and T wave abnormality Outcomes & Goals Goals:: Verbalizes understanding of THR, RPE & goal METS by session 6, Documents in home exercise log/reports 30 min aerobic 5 day/wk by DC, Demonstrates accurate pulse taking by DC and Other additional outcome/goals: see below Intervention & Plan Exercise Program Goals: Instruct on personal THR & RPE, Instruct on MET level & personal MET goal, Show patient to take own pulse /validate performance until accurate, Instruct on home exercise and Other additional plan/int Physical Activity Home Exercise Physical Activity - Home Exercise: Safe Exercise, Warm-up, Self-monitoring, Cool-Down, Home Exercise > 30 min Daily and Sitting Time <3 hours/daily Outcomes & Goals Outcomes/Goals: Demonstrates correct Warm-up/exercise Cool-Down (S3) if = 2.5 METs, Verbalizes symptoms of exercise intolerance by Session 3 (S3), Demonstrate safe equipment use (S3) & follows exercise prescrition (6) and Other: See below Intervention & Plan Plan/Intervention: Instruct warm-up & cool-down if exercising at > 2 METs, Instruct on symptoms of exercise intolerance & actions to take, Instruct & monitor on saf, Assess intial functional capacity & safety risk and Other See below Nutrition - Initial Assessment Program Goals Nutrition Program Goals Patient has diagnosis of Hyperlipidemia (ICD E78)?: Yes Visit Date of Eval: 07/05/24 (initial eval ) Cholesterol/Lipids (Other Core Measures) Determine presence & major risk factors that modify LDL goal: Hypertension or hypertensive medication, Low HDL cholesterol <40 mg/dL*, Family history of premature CHD in Male < 55 years: female <65 yearsFa and Age men > 45 years; women >/= 55 years Outcomes/Goals: Pt IDs own risk factors & lifestyle modifications by Session 10, Verbalizes symptoms of angina & response by session 3., Pt independently manages and Other Additional Outcomes/Goals: Intervention/Plan: Advocate for lipid panel cholesterol medication if applicable, Instruct on personal lipid levels & lipid goals/NCEP guidelines, Instruct on cholesterol and Other additional plan/int Referral to dietitian:: Yes Diabetes (Other Core Measures) Diabetes Type: Not Applicable Weight Mgt (Other Care) Height: 5 ft 10 in Weight:: 286 lb BMI: 41.0 Diagnosis Overweight/Obesity BMI> 30% ICD-10 E66: Yes Diagnosis High BMI/Morbid Obesity BMI> 35% ICD-10 Z68: Yes Outcomes/Goals: Pt sets, maintains & shows weight loss goal & trend during rehab and Other additional outcomes/goals Intervention/Plan: Instruct on ideal BMI & set weight loss goal w/patient, Assist pt to ID & incorporate diet changes for weight loss by S9, Refer to Structured Weight Loss program as appropriate, Encourage goal of using 250- 300dcal per session for weight loss and Other additional plan/interventions Healthy Eating Habits Will attend diet classes:: Yes Outcomes/Goals:: Consume diet rich in vegs,fruits,whole grain/high fi nancy,fish,lean meat, Limit sat/trans fats,cholesterol & added salts & sugars and Other additional outcome/goals: Intervention/Plan:: Assess current eating habits and Other Additional plan/interventions Education Gave educational materials for:: Signs & symptoms of hypoglycemia, Signs & symptoms of hyperglycemia, Relate diabetes to coronary artery disease and Healthy eating Core - Initial Assessment Visit Date of Eval: 07/05/24 (initial eval ) Medication Compliance Preventative Medication(s):: Statin/lipid and Beta ania H/O mental health issues: depression, anxiety, or addiction?: No Doesn?t believe in the benefits of treatment?: No Believes medications are unnecessary or harmful?: No Has a concern about medication side effects?: No Expresses concern over the cost of medications?: No Outcomes/Goals: Verbalizes medications,desired effect & common side effects @ DC, Pt self-reports following medication regimen, Keeps card in wallet w/medications listed by DC and Other additional outcome/goals: Interventions/plans: Instruct on medication effects & side effects, Review medication list w/patient every two weeks, Instruct importance of taking meds as ordered & assist problem solving and Other additional Tobacco Use Tobacco Use: Non-smoker Hypertension Hypertension Diagnosis:: Hypertension ICD-10 I10 Resting Blood Pressure:: 135/78 [place] [employer] Hypertension Guidelines Outcomes/Goals: Able to verbalize/achieve optimal blood pressure <130/80, Incorporates diet changes & exercise for blood pressure control by DC and Other additional outcomes/goals Interventions/plan: Instruct on optimal blood pressure, hypertension & medications, Instruct on effects of sodium, alcohol, stress, exercise &hypertension and Other additional plan/interventions Tobacco Cessation Referral Smoking Cessation Referral:: No Individual Education/Counseling:: No Education Schedule Given:: Yes Psychosocial - Initial Assess VIsit Date of Eval: 07/05/24 (initial eval ) History of previous Mental disease:: No Target Goals Target Goals Psychosocial Test Tool Used:: Christa Acevedo QOL Cardiac and PHQ-9 Questionnaire phq-9 Severity See PHQ-9 Score: 6 Referral to Behavioral Health PS - Interventions: Yes: Attend Stress Management Classes Outcomes/Goals: See list Psychosocial Outcomes/Goals:: ID's personal stressors & 2 strategies to manage stress by discharge and Other Additional outcome/goals: Intervention/Plan: See List Interventions/Plan:: Assess stressors,coping strategies & signs of derpression on admission, Instruct/assist pt to develop coping & personal stress Mgt strategies, Refer to Behavioral Health if appropriate, Refer to Physician if appropriate, Instruct patient to recognize signs & symptoms of depression, Instruct patient to recog and Other additional plan/intervention Comments:: Pt denies any psychosocial issues at this time. Patient Health Questionnaire PHQ-9 Screening Initial Assessment: 1. Little interest or pleasure in doing things: Several days 2. Feeling down, depressed, or hopeless: Not at all 3. Trouble falling or staying asleep, or sleeping too much: Several days 4. Feeling tired or having little energy: More than half the days 5. Poor appetite or overeating: Several days 6. Feeling bad about yourself -- or that you are a failure or have let yourself or your family down: Not at all 7. Trouble concentrating on things, such as reading the newspaper or watching television: Several days 8. Moving or speaking so slowly that other people could have noticed. Or the opposite - being so fidgety or restless that you have been moving around a lot more than usual: Not at all 9. Thoughts that you would be better off , or of hurting yourself in some way: Not at all Total Score: 6 MARY-Q SV Test Statements CAD is a disease of the arteries in the heart: False Examples of risk factors for heart disease: True Angina is chest pain or discomfort: True The benefits of resistance training include: True Eating more meat and dairy products: False Anti-platelet medications such as aspirin are important: True The only effective way to manage stress: False An exercise warm-up slowly increases heart rate: I Don't Know Prepared, processed foods usually have high sodium: True Depression is common after a heart attack: I Don't Know The statin medications lower cholesterol: True To control blood pressure, lower the amount of sodium: True If someone gets chest discomfort during walking: False Transfats are partially hydrogenated vegetable oils: True Sleep apnea that is not treated increases the risk: I Don't Know To control cholesterol, one should become a vegetarian: False Someone knows if he/she is exercising at the right level: True Diabetes cannot be prevented with exercise & health eating: False Stress is a large risk for heart attack: True A diet that can help lower blood pressure is rich in: True Total Score Total Correct Responses: 17 Self-Efficacy 6-Item Scale Initial Assessment: We would like to know how confident you are in doing certain activities. Please select your confidence level for: Fatigue Select Number: 7 Physical Discomfort or Pain Select Number: 9 Emotional Distress Select Number: 10 Other Symptoms or Health Problems Select Number: 9 Different Tasks and Activities Select Number: 9 Medication Select Number: 8 Total Score:: 8 Nutrition Survey Nutrition Survey Instructions Scoring Instructions Nutrition Survey Initial: Have you lost >10 lbs over the past 2 months without trying?: No Are you following a special diet at home for diabetes, low fat, or low salt?: No Are you interested in meeting with a dietitian for help understanding your diet?: Yes Do you eat less than 3 meals a day?: Yes Do you eat fatty meats (kemp, sausage, ribs, etc), fried foods, desserts, large amounts of salad dressings, margarine, butter, or cheese most days?: No Do you have food allergies? [Enter types in comment field]: No Do you eat in restaurants more than 3 times a week?: No Do you season food with salt, seasoning salt, or garlic salt?: No Do you used canned, boxed, frozen meals, or soups, seasoning packets?: No Total Score:: 2 Exercise - 30-day Assessment Physician Prescribed Exercise Modalities: Treadmill, [employer] Airdyne AD-7, SciFit Stepper, SciFit Pro-II Ergometer and SciFit Lateral Interventional Nurse Exercise - 60-day Assessment Physician Prescribed Exercise Modalities: Treadmill, [employer] Airdyne AD-7, SciFit Stepper, SciFit Pro-II Ergometer and SciFit Lateral [place] Exercise - 90-day Assessment Physician Prescribed Exercise Modalities: Treadmill, [employer] Airdyne AD-7, SciFit Stepper, SciFit Pro-II Ergometer and SciFit Lateral Interventional Nurse Exercise - Final/Discharge Physician Prescribed Exercise Modalities: Treadmill, [employer] Airdyne AD-7, SciFit Stepper, SciFit Pro-II Ergometer and SciFit Lateral [place] Frequency: 3x/week for 12 weeks [36 sessions] Intensity: 60-80% of age predicted maximum heart rate reserve Current METSs:: 3 Target Heart Rate:: 96-111 Nutrition - 30-Day Assessment Weight Mgt (Other Care) Height: 5 ft 10 in Weight:: 286 lb BMI: 41.0 Nutrition - 60-Day Assessment Weight Mgt (Other Care) Height: 5 ft 10 in Weight:: 286 lb BMI: 41.0 Core - Final Assessment Hypertension Resting Blood Pressure:: 135/78 [place] [employer] Hypertension Guidelines Core - 60-Day Assessment Hypertension Resting Blood Pressure:: 135/78 [place] [employer] Hypertension Guidelines Psychosocial - 30-Day Assess Target Goals Target Goals Referral to Behavioral Health PS - Interventions: Yes: Attend Stress Management Classes Psychosocial - 60-Day Assess Target Goals Target Goals Referral to Behavioral Health PS - Interventions: Yes: Attend Stress Management Classes Psychosocial - 90-Day Assess Target Goals Target Goals Referral to Behavioral Health PS - Interventions: Yes: Attend Stress Management Classes Psychosocial - Final Assessmen Target Goals Target Goals Psychosocial Test phq-9 Severity See PHQ-9 Score: 6 Referral to Behavioral Health PS - Interventions: Yes: Attend Stress Management Classes Nutrition - 90-Day Assessment Weight Mgt (Other Care) Height: 5 ft 10 in Weight:: 286 lb BMI: 41.0 Nutrition - Final Assessment Program Goals Patient has diagnosis of Hyperlipidemia (ICD E78)?: Yes Weight Mgt (Other Care) Height: 5 ft 10 in Weight:: 286 lb BMI: 41.0
[2024-07-05 15:15] VITALS: BP 135/78; BMI 41.0
[2024-07-05 15:17] VITALS: BMI 41.0
== END | disposition home or self-care (01) ==
PROVIDERS: PCP Family Medicine; Referring Provider Internal Medicine Cardiovascular Disease; Visit Provider Internal Medicine Cardiovascular Disease
DX: Z86.79 Personal history of other diseases of the circulatory system (principal); Z95.1 Presence of aortocoronary bypass graft; Z98.890 Other specified postprocedural states

== ENCOUNTER 2024-08-07 14:15 | Outpatient (RCR) | payer MEDICARE, OTHER, SELFPAY ==
[2024-07-05 15:15] VITALS: BMI 41.0
--- NOTE | 2024-08-04 08:22 | PCM.CR.ITP ---
Exercise - Initial Assessment Visit Session #:: 11 Physician Prescribed Exercise Modalities: SciFit Stepper and SciFit Lateral [place] Nutrition - Initial Assessment Weight Mgt (Other Care) Height: 5 ft 10 in Weight:: 281 lb BMI: 40.3 Psychosocial - Initial Assess Target Goals Target Goals Referral to Behavioral Health PS - Interventions: Yes: Attend Stress Management Classes Patient Health Questionnaire PHQ-9 Screening 30-Day Re-eval Assessment: 1. Little interest or pleasure in doing things: Several days 2. Feeling down, depressed, or hopeless: Not at all 3. Trouble falling or staying asleep, or sleeping too much: Several days 4. Feeling tired or having little energy: More than half the days 5. Poor appetite or overeating: Several days 6. Feeling bad about yourself -- or that you are a failure or have let yourself or your family down: Not at all 7. Trouble concentrating on things, such as reading the newspaper or watching television: Several days 8. Moving or speaking so slowly that other people could have noticed. Or the opposite - being so fidgety or restless that you have been moving around a lot more than usual: Not at all 9. Thoughts that you would be better off , or of hurting yourself in some way: Not at all Total Score: 6 Self-Efficacy 6-Item Scale 30-Day Re-eval Assessment: We would like to know how confident you are in doing certain activities. Please select your confidence level for: Fatigue Select Number: 7 Physical Discomfort or Pain Select Number: 9 Emotional Distress Select Number: 10 Other Symptoms or Health Problems Select Number: 9 Different Tasks and Activities Select Number: 9 Medication Select Number: 8 Total Score:: 8 Nutrition Survey Nutrition Survey Instructions Scoring Instructions Exercise - 30-day Assessment Visit Date of Eval: 08/04/24 Session #:: 11 Physician Prescribed Exercise Modalities: SciFit Stepper and SciFit Lateral [place] Frequency: 3x/week for 12 weeks [36 sessions] Intensity: 60-80% of age predicted maximum heart rate reserve Duration: 30 - 45 minutes Current METSs:: 4.2 Target Heart Rate:: 96-111 Current RPE:: 11-12 Maximum Excercise HR:: 70 Resting Blood Pressure: 146/80 Maximum Exercise Blood Pressure: 142/78 EKG Type: NSR with rare to occas PAC, PVC Outcomes & Goals Goals:: Verbalizes understanding of THR, RPE & goal METS by session 6, Documents in home exercise log/reports 30 min aerobic 5 day/wk by DC, Demonstrates accurate pulse taking by DC and Other additional outcome/goals: see below Intervention & Plan Exercise Program Goals: Instruct on personal THR & RPE, Instruct on MET level & personal MET goal, Show patient to take own pulse /validate performance until accurate, Instruct on home exercise and Other additional plan/int Physical Activity Home Exercise Physical Activity - Home Exercise: Safe Exercise, Warm-up, Self-monitoring, Cool-Down, Home Exercise > 30 min Daily and Sitting Time <3 hours/daily Outcomes & Goals Outcomes/Goals: Demonstrates correct Warm-up/exercise Cool-Down (S3) if = 2.5 METs, Verbalizes symptoms of exercise intolerance by Session 3 (S3), Demonstrate safe equipment use (S3) & follows exercise prescrition (6) and Other: See below Intervention & Plan Plan/Intervention: Instruct warm-up & cool-down if exercising at > 2 METs, Instruct on symptoms of exercise intolerance & actions to take, Instruct & monitor on saf, Assess intial functional capacity & safety risk and Other See below 30-day Reassessments 30 day Reassessments:: Progressing Reassessment Notes & Comments:: RPE explained to pt. Pt demonstrates understanding in his daily sessions. Exercise - 60-day Assessment Physician Prescribed Exercise Modalities: SciFit Stepper and SciFit Lateral [place] Exercise - 90-day Assessment Physician Prescribed Exercise Modalities: SciFit Stepper and SciFit Lateral [place] Exercise - Final/Discharge Physician Prescribed Exercise Modalities: SciFit Stepper and SciFit Lateral [place] Nutrition - 30-Day Assessment Program Goals Nutrition Program Goals Patient has diagnosis of Hyperlipidemia (ICD E78)?: Yes Visit Date of Eval: 08/04/24 Session #:: 11 Cholesterol/Lipids (Other Core Measures) Triglycerides (mg/dL): 76 Total Cholesterol (mg/dL): 100 LDL Cholesterol (mg/dL): 47 HDL Cholesterol (mg/dL): 38 Determine presence & major risk factors that modify LDL goal: Hypertension or hypertensive medication, Low HDL cholesterol <40 mg/dL*, Family history of premature CHD in Male < 55 years: female <65 yearsFa and Age men > 45 years; women >/= 55 years Outcomes/Goals: Pt IDs own risk factors & lifestyle modifications by Session 10, Verbalizes symptoms of angina & response by session 3., Pt independently manages and Other Additional Outcomes/Goals: Intervention/Plan: Advocate for lipid panel cholesterol medication if applicable, Instruct on personal lipid levels & lipid goals/NCEP guidelines, Instruct on cholesterol and Other additional plan/int Referral to dietitian:: Yes (Pt scheduled to see our rock mason apprentice 08/21/24) 30-day Reassessments:: Progressing Reassessment Notes & Comments:: Pt scheduled to see our rock mason apprentice 08/21/24 Diabetes (Other Core Measures) Diabetes Type: Not Applicable Weight Mgt (Other Care) Height: 5 ft 10 in Weight:: 281 lb BMI: 40.3 Diagnosis Overweight/Obesity BMI> 30% ICD-10 E66: Yes Diagnosis High BMI/Morbid Obesity BMI> 35% ICD-10 Z68: Yes Outcomes/Goals: Pt sets, maintains & shows weight loss goal & trend during rehab and Other additional outcomes/goals Intervention/Plan: Instruct on ideal BMI & set weight loss goal w/patient, Assist pt to ID & incorporate diet changes for weight loss by S9, Refer to Structured Weight Loss program as appropriate, Encourage goal of using 250-300dcal per session for weight loss and Other additional plan/interventions 30 day Reassessments:: Progressing Reassessment Notes & Comments:: Pt scheduled to see our rock mason apprentice 08/21/24. Pt will also attend nutrition class. Healthy Eating Habits Will attend diet classes:: Yes Outcomes/Goals:: Consume diet rich in vegs,fruits,whole grain/high fiber,fish,lean meat, Limit sat/trans fats,cholesterol & added salts & sugars and Other additional outcome/goals: Intervention/Plan:: Assess current eating habits and Other Additional plan/interventions 30-day Reassessments:: Progressing Reassessment Notes & Comments:: Pt scheduled to see our rock mason apprentice 08/21/24. Pt is also scheduled to attend nutrition class. Education Gave educational materials for:: Signs & symptoms of hypoglycemia, Signs & symptoms of hyperglycemia, Relate diabetes to coronary artery disease and Healthy eating Nutrition - 60-Day Assessment Weight Mgt (Other Care) Height: 5 ft 10 in Weight:: 281 lb BMI: 40.3 Core - 30-Day Assessment Visit Date of Eval: 08/04/24 Session #:: 11 Medication Compliance Preventative Medication(s):: Statin/lipid and Beta ania H/O mental health issues: depression, anxiety, or addiction?: No Doesn?t believe in the benefits of treatment?: No Believes medications are unnecessary or harmful?: No Has a concern about medication side effects?: No Expresses concern over the cost of medications?: No Outcomes/Goals: Verbalizes medications,desired effect & common side effects @ DC, Pt self-reports following medication regimen, Keeps card in wallet w/medications listed by DC and Other additional outcome/goals: Interventions/plans: Instruct on medication effects & side effects, Review medication list w/patient every two weeks, Instruct importance of taking meds as ordered & assist problem solving and Other additional 30-day Reassessments:: Met Reassessment Notes & Comments:: Pt taking meds as prescribed. Tobacco Use Tobacco Use: Non-smoker Hypertension Hypertension Diagnosis:: Hypertension ICD-10 I10 Resting Blood Pressure:: 146/80 [place] [employer] Hypertension Guidelines Peak Exercise Blood Pressure:: 142/78 Outcomes/Goals: Able to verbalize/achieve optimal blood pressure <130/80, Incorporates diet changes & exercise for blood pressure control by DC and Other additional outcomes/goals Interventions/plan: Instruct on optimal blood pressure, hypertension & medications, Instruct on effects of sodium, alcohol, stress, exercise &hypertension and Other additional plan/interventions 30 day Reassessments:: Progressing Reassessment Notes & Comments:: Pt's bp's are elevated on most days. Will continue to monitor and report to physician if necessary. Tobacco Cessation Referral Smoking Cessation Referral:: No Individual Education/Counseling:: No Education Schedule Given:: Yes Psychosocial - 30-Day Assess VIsit Date of Eval: 08/04/24 Session #:: 11 History of previous Mental disease:: No Target Goals Target Goals Psychosocial Test Tool Used:: PHQ-9 Questionnaire phq-9 Severity See PHQ-9 Score: 6 Referral to Behavioral Health PS - Interventions: Yes: Attend Stress Management Classes Outcomes/Goals: See list Psychosocial Outcomes/Goals:: ID's personal stressors & 2 strategies to manage stress by discharge and Other Additional outcome/goals: Intervention/Plan: See List Interventions/Plan:: Assess stressors,coping strategies & signs of derpression on admission, Instruct/assist pt to develop coping & personal stress Mgt strategies, Refer to Behavioral Health if appropriate, Refer to Physician if appropriate, Instruct patient to recognize signs & symptoms of depression, Instruct patient to recog and Other additional plan/intervention 30-day Reassessments: 30 day Reassessments:: Met Reassessment Notes & Comments:: Pt denies any psychosocial issues at this time. Psychosocial - 60-Day Assess Target Goals Target Goals Referral to Behavioral Health PS - Interventions: Yes: Attend Stress Management Classes Outcomes/Goals: See list Psychosocial Outcomes/Goals:: ID's personal stressors & 2 strategies to manage stress by discharge and Other Additional outcome/goals: Psychosocial - 90-Day Assess Target Goals Target Goals Referral to Behavioral Health PS - Interventions: Yes: Attend Stress Management Classes Psychosocial - Final Assessmen Target Goals Target Goals Referral to Behavioral Health PS - Interventions: Yes: Attend Stress Management Classes Nutrition - 90-Day Assessment Weight Mgt (Other Care) Height: 5 ft 10 in Weight:: 281 lb BMI: 40.3 Nutrition - Final Assessment Weight Mgt (Other Care) Height: 5 ft 10 in Weight:: 281 lb BMI: 40.3
[2024-08-04 08:26] VITALS: BP 146/80
[2024-08-04 08:35] VITALS: BP 146/80; BMI 40.3
== END 2024-08-07 23:59 ==
LOC: CR 14:15
PROVIDERS: PCP Family Medicine; Referring Provider Internal Medicine Cardiovascular Disease; Visit Provider Internal Medicine Cardiovascular Disease
DX: Z95.1 Presence of aortocoronary bypass graft (principal); Z98.890 Other specified postprocedural states; Z86.79 Personal history of other diseases of the circulatory system
CPT/HCPCS: 93798

== ENCOUNTER 2024-09-01 14:15 | Outpatient (RCR) | payer MEDICARE, OTHER, SELFPAY ==
[2024-08-04 08:35] VITALS: BMI 40.3
--- NOTE | 2024-09-01 14:44 | CR.ITP_ITS ---
Exercise - Initial Assessment Physician Prescribed Exercise Modalities: SciFit Stepper and SciFit Lateral [employer] Nutrition - Initial Assessment Weight Mgt (Other Care) Height: 5 ft 10 in Weight:: 276 lb BMI: 39.6 BMI (Report if calculated above): 39 Core - Initial Assessment Hypertension Resting Blood Pressure:: 146/80 [place] [employer] Hypertension Guidelines Psychosocial - Initial Assess Target Goals Target Goals Referral to Behavioral Health PS - Interventions: Yes: Attend Stress Management Classes Patient Health Questionnaire PHQ-9 Screening 60-Day Re-eval Assessment: 1. Little interest or pleasure in doing things: Several days 2. Feeling down, depressed, or hopeless: Not at all 3. Trouble falling or staying asleep, or sleeping too much: Several days 4. Feeling tired or having little energy: More than half the days 5. Poor appetite or overeating: Several days 6. Feeling bad about yourself -- or that you are a failure or have let yourself or your family down: Not at all 7. Trouble concentrating on things, such as reading the newspaper or watching television: Several days 8. Moving or speaking so slowly that other people could have noticed. Or the opposite - being so fidgety or restless that you have been moving around a lot more than usual: Not at all 9. Thoughts that you would be better off , or of hurting yourself in some way: Not at all How difficult have these problems made it for you to do your work, take care of things at home, or get along with other people?: Somewhat difficult Total Score: 6 Self-Efficacy 6-Item Scale 60-Day Re-eval Assessment: We would like to know how confident you are in doing certain activities. Please select your confidence level for: Fatigue Select Number: 7 Physical Discomfort or Pain Select Number: 9 Emotional Distress Select Number: 10 Other Symptoms or Health Problems Select Number: 9 Different Tasks and Activities Select Number: 9 Medication Select Number: 8 Total Score:: 8 Nutrition Survey Nutrition Survey Instructions Scoring Instructions Exercise - 30-day Assessment Physician Prescribed Exercise Modalities: SciFit Stepper and SciFit Lateral [employer] Exercise - 60-day Assessment Visit Date of Eval: 09/01/24 Session #:: 21 Physician Prescribed Exercise Modalities: SciFit Stepper and SciFit Lateral [place] Frequency: 3x/week for 12 weeks [36 sessions] Intensity: 60-80% of age predicted maximum heart rate reserve Duration: 30 - 45 minutes METs - Progression 0.5-1.0 weekly:: 0.5-1 Current METSs:: 5 Target Heart Rate:: 96-111 Target RPE 11-14 Current RPE:: 11-14 Current RPE:: 12 Maximum Excercise HR:: 71 Resting Blood Pressure: 140/82 Maximum Exercise Blood Pressure: 140/74 EKG Type: NSR with rare PAC/PVC Outcomes & Goals Goals:: Verbalizes understanding of THR, RPE & goal METS by session 6, Documents in home exercise log/reports 30 min aerobic 5 day/wk by DC and Demonstrates accurate pulse taking by DC Intervention & Plan Exercise Program Goals: Instruct on personal THR & RPE, Instruct on MET level & personal MET goal, Show patient to take own pulse /validate performance until accurate and Instruct on home exercise 30-day Reassessments 30 day Reassessments:: Met Reassessment Notes & Comments:: PT continues to meet met goals and correctly uses RPE scale Physical Activity Home Exercise Physical Activity - Home Exercise: Safe Exercise, Warm-up, Self-monitoring, Cool-Down, Home Exercise > 30 min Daily and Sitting Time <3 hours/daily Outcomes & Goals Outcomes/Goals: Demonstrates correct Warm-up/exercise Cool-Down (S3) if = 2.5 METs, Verbalizes symptoms of exercise intolerance by Session 3 (S3) and Demonstrate safe equipment use (S3) & follows exercise prescrition (6) Intervention & Plan Plan/Intervention: Instruct warm-up & cool-down if exercising at > 2 METs, Instruct on symptoms of exercise intolerance & actions to take, Instruct & monitor on saf and Assess intial functional capacity & safety risk 30-day Reassessments 30 day Reassessments:: Met Reassessment Notes & Comments:: Pt warms up and cools down on own, pt demonstrates safe use of equipment Exercise - 90-day Assessment Physician Prescribed Exercise Modalities: SciFit Stepper and SciFit Lateral [employer] Exercise - Final/Discharge Physician Prescribed Exercise Modalities: SciFit Stepper and SciFit Lateral [employer] Nutrition - 30-Day Assessment Weight Mgt (Other Care) Height: 5 ft 10 in Weight:: 276 lb BMI: 39.6 BMI (Report if calculated above): 39 Nutrition - 60-Day Assessment Program Goals Nutrition Program Goals Patient has diagnosis of Hyperlipidemia (ICD E78)?: Yes Visit Date of Eval: 09/01/24 Session #:: 21 Cholesterol/Lipids (Other Core Measures) Total Triglycerides (mg/dL): 76 Total Cholesterol: 100 LDL Cholesterol (mg/dL): 47 HDL Cholesterol (mg/dL): 38 Lipid Medication: atorvastating 80mg QHS Determine presence & major risk factors that modify LDL goal: Cigarette smoking, Hypertension or hypertensive medication, Low HDL cholesterol <40 mg/dL* and Family history of premature CHD in Male < 55 years: female <65 yearsFa Outcomes/Goals: Pt IDs own risk factors & lifestyle modifications by Session 10, Verbalizes symptoms of angina & response by session 3. and Pt independently manages Intervention/Plan: Advocate for lipid panel cholesterol medication if applicable, Instruct on personal lipid levels & lipid goals/NCEP guidelines and Instruct on cholesterol 30-day Reassessments:: Met Reassessment Notes & Comments:: Pt taking medications as prescribed Diabetes (Other Core Measures) Diabetes Type: Not Applicable Weight Mgt (Other Care) Height: 5 ft 10 in Weight:: 276 lb BMI: 39.6 BMI (Report if calculated above): 39 Diagnosis Overweight/Obesity BMI> 30% ICD-10 E66: Yes Diagnosis High BMI/Morbid Obesity BMI> 35% ICD-10 Z68: Yes Outcomes/Goals: Pt sets, maintains & shows weight loss goal & trend during rehab Intervention/Plan: Instruct on ideal BMI & set weight loss goal w/patient, Assist pt to ID & incorporate diet changes for weight loss by S9, Refer to Structured Weight Loss program as appropriate and Encourage goal of using 250- 300dcal per session for weight loss 30 day Reassessments:: Progressing Reassessment Notes & Comments:: PT continues to loose weight during the program, pt being active outside class Healthy Eating Habits Will attend diet classes:: Yes Outcomes/Goals:: Consume diet rich in vegs,fruits,whole grain/high fiber,fish,lean meat and Limit sat/trans fats,cholesterol & added salts & sugars Intervention/Plan:: Assess current eating habits 30-day Reassessments:: Progressing Reassessment Notes & Comments:: Pt attending diet classes and met with bass guitar teacher one on one Education Gave educational materials for:: Signs & symptoms of hypoglycemia, Signs & symptoms of hyperglycemia, Relate diabetes to coronary artery disease and Healthy eating Core - Final Assessment Hypertension Resting Blood Pressure:: 146/80 [place] [employer] Hypertension Guidelines Core - 60-Day Assessment Visit Date of Eval: 09/01/24 Session #:: 21 Medication Compliance Preventative Medication(s):: Statin/lipid and Beta ania H/O mental health issues: depression, anxiety, or addiction?: No Doesn’t believe in the benefits of treatment?: No Believes medications are unnecessary or harmful?: No Has a concern about medication side effects?: No Expresses concern over the cost of medications?: No Outcomes/Goals: Verbalizes medications,desired effect & common side effects @ DC, Pt self-reports following medication regimen and Keeps card in wallet w/medications listed by DC Interventions/plans: Instruct on medication effects & side effects, Review medication list w/patient every two weeks and Instruct importance of taking meds as ordered & assist problem solving 30-day Reassessments:: Met Reassessment Notes & Comments:: PT taking all medications as prescribed Tobacco Use Tobacco Use: Non-smoker Hypertension Hypertension Diagnosis:: Hypertension ICD-10 I10 Resting Blood Pressure:: 140/82 Resting Blood Pressure:: 146/80 [place] [employer] Hypertension Guidelines Peak Exercise Blood Pressure:: 140/74 Outcomes/Goals: Able to verbalize/achieve optimal blood pressure <130/80 and Incorporates diet changes & exercise for blood pressure control by DC Interventions/plan: Instruct on optimal blood pressure, hypertension & medicatio ns and Instruct on effects of sodium, alcohol, stress, exercise &hypertension 30 day Reassessments:: Progressing Reassessment Notes & Comments:: Pt working with statistical clerk advertising to increase antihypertensive medications to achieve optimal blood pressure at rest Tobacco Cessation Referral Smoking Cessation Referral:: No Individual Education/Counseling:: No Education Schedule Given:: Yes Psychosocial - 30-Day Assess Target Goals Target Goals Referral to Behavioral Health PS - Interventions: Yes: Attend Stress Management Classes Outcomes/Goals: See list Psychosocial Outcomes/Goals:: ID's personal stressors & 2 strategies to manage stress by discharge Psychosocial - 60-Day Assess VIsit Date of Eval: 09/01/24 Session #:: 21 History of previous Mental disease:: No History of Emotional Disorders: None Target Goals Target Goals Psychosocial Test Tool Used:: PHQ-9 Questionnaire phq-9 Severity See PHQ-9 Score: 6 Total Score:: 6 Referral to Behavioral Health PS - Interventions: Yes: Attend Stress Management Classes Outcomes/Goals: See list Psychosocial Outcomes/Goals:: ID's personal stressors & 2 strategies to manage stress by discharge Intervention/Plan: See List Interventions/Plan:: Assess stressors,coping strategies & signs of derpression on admission, Instruct/assist pt to develop coping & personal stress Mgt strategies, Refer to Behavioral Health if appropriate, Refer to Physician if appropriate and Instruct patient to recognize signs & symptoms of depression 30-day Reassessments: 30 day Reassessments:: Met Reassessment Notes & Comments:: Pt denies any psychosocial needs at this time Psychosocial - 90-Day Assess Target Goals Target Goals Referral to Behavioral Health PS - Interventions: Yes: Attend Stress Management Classes Psychosocial - Final Assessmen Target Goals Target Goals Referral to Behavioral Health PS - Interventions: Yes: Attend Stress Management Classes Nutrition - 90-Day Assessment Weight Mgt (Other Care) Height: 5 ft 10 in Weight:: 276 lb BMI: 39.6 BMI (Report if calculated above): 39 Nutrition - Final Assessment Weight Mgt (Other Care) Height: 5 ft 10 in Weight:: 276 lb BMI: 39.6 BMI (Report if calculated above): 39
[2024-09-01 14:48] VITALS: BP 140/82
[2024-09-01 15:03] VITALS: BP 140/82; BP 146/80; BMI 39.0; BMI 39.6
== END 2024-09-07 23:59 ==
LOC: CR 14:15
PROVIDERS: PCP Family Medicine; Referring Provider Internal Medicine Cardiovascular Disease; Visit Provider Internal Medicine Cardiovascular Disease
DX: Z98.890 Other specified postprocedural states (principal); Z86.79 Personal history of other diseases of the circulatory system; Z95.1 Presence of aortocoronary bypass graft
CPT/HCPCS: 93798; 97802

== ENCOUNTER → 2024-09-22 | Outpatient (CLI) | payer MEDICARE, OTHER, SELFPAY ==
[2024-09-01 15:03] VITALS: BMI 39.6
[2024-09-22 13:39] LABS: Anion Gap 11 (5-15); BUN 22 mg/dL (4-19); BUN/Creat Ratio 16.8 RATIO (10-20); Calcium,Total 9.8 mg/dL (7.6-11.0); Carbon Dioxide 23.5 mmol/L (21.0-32.0); Chloride 105 mmol/L (98-108); Glucose 107 mg/dL (70-99); Potassium 4.8 mmol/L (3.3-5.1)
== END | disposition home or self-care (01) ==
LOC: LAB 12:45
PROVIDERS: PCP Family Medicine; Referring Provider Nurse Practitioner Gerontology; Visit Provider Nurse Practitioner Gerontology
DX: I10 Essential (primary) hypertension (principal)
CPT/HCPCS: 36415; 80048

== ENCOUNTER 2024-10-06 14:15 | Outpatient (RCR) | payer MEDICARE, OTHER, SELFPAY ==
[2024-09-01 15:03] VITALS: BMI 39.6
--- NOTE | 2024-09-28 08:56 | PCM.CR.ITP ---
Exercise - Initial Assessment Physician Prescribed Exercise Modalities: SciFit Stepper and SciFit Lateral [place] Nutrition - Initial Assessment Weight Mgt (Other Care) Height: 5 ft 10 in Weight:: 277 lb 8 oz BMI: 39.8 Psychosocial - Initial Assess Target Goals Target Goals Referral to Behavioral Health PS - Interventions: Yes: Attend Stress Management Classes Self-Efficacy 6-Item Scale 90-Day Re-eval Assessment: We would like to know how confident you are in doing certain activities. 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 Exercise - 60-day Assessment Physician Prescribed Exercise Modalities: SciFit Stepper and SciFit Lateral [place] Exercise - 90-day Assessment Visit Date of Eval: 09/28/24 Session #:: 27 Physician Prescribed Exercise Modalities: SciFit Stepper and SciFit Lateral [place] Frequency: 3x/week for 12 weeks [36 sessions] Intensity: 60-80% of age predicted maximum heart rate reserve Duration: 30 - 45 minutes Current METSs:: 6.2 Target Heart Rate:: 96-111 Current RPE:: 12-13 Maximum Excercise HR:: 84 Resting Blood Pressure: 126/70 Maximum Exercise Blood Pressure: 130/62 EKG Type: NSR with rare PAC, rare to occas PVC, one vent triplet Outcomes & Goals Goals:: Verbalizes understanding of THR, RPE & goal METS by session 6, Documents in home exercise log/reports 30 min aerobic 5 day/wk by DC, Demonstrates accurate pulse taking by DC and Other additional outcome/goals: see below Intervention & Plan Exercise Program Goals: Instruct on personal THR & RPE, Instruct on MET level & personal MET goal, Show patient to take own pulse /validate performance until accurate, Instruct on home exercise and Other additional plan/int 30-day Reassessments 30 day Reassessments:: Met Reassessment Notes & Comments:: Pt understands pulse taking and how to do this accurately. Pt also understands the importance of home exercise. Physical Activity Home Exercise Physical Activity - Home Exercise: Safe Exercise, Warm-up, Self-monitoring, Cool-Down, Home Exercise > 30 min Daily and Sitting Time <3 hours/daily Outcomes & Goals Outcomes/Goals: Demonstrates correct Warm-up/exercise Cool-Down (S3) if = 2.5 METs, Verbalizes symptoms of exercise intolerance by Session 3 (S3), Demonstrate safe equipment use (S3) & follows exercise prescrition (6) and Other: See below Intervention & Plan Plan/Intervention: Instruct warm-up & cool-down if exercising at > 2 METs, Instruct on symptoms of exercise intolerance & actions to take, Instruct & monitor on saf, Assess intial functional capacity & safety risk and Other See below 30-day Reassessments 30 day Reassessments:: Met Reassessment Notes & Comments:: Pt has 9 sessions remaining. Pt will be given his exercise prescription upon graduation as well as community resources to continue his exercise. 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 Will continue to encourage weight loss and a low sodium diet. Will report to physician if needed. Core - Final Assessment Hypertension [place] [employer] Hypertension Guidelines Reassessment Notes & Comments:: Pt's BP's are within AHA normal limits on some days. Will continue to encourage weight loss and a low sodium diet. Will report to physician if needed. Core - 90 Day Assessment Visit Date of Eval: 09/28/24 Session #:: 27 Medication Compliance Preventative Medication(s):: Statin/lipid and Beta ania H/O mental health issues: depression, anxiety, or addiction?: No Doesn?t believe in the benefits of treatment?: No Believes medications are unnecessary or harmful?: No Has a concern about medication side effects?: No Expresses concern over the cost of medications?: No Outcomes/Goals: Verbalizes medications,desired effect & common side effects @ DC, Pt self-reports following medication regimen, Keeps card in wallet w/medications listed by DC and Other additional outcome/goals: Interventions/plans: Instruct on medication effects & side effects, Review medication list w/patient every two weeks, Instruct importance of taking meds as ordered & assist problem solving and Other additional 30-day Reassessments:: Met Reassessment Notes & Comments:: Pt taking meds as prescribed. Tobacco Use Tobacco Use: Non-smoker Hypertension Hypertension Diagnosis:: Hypertension ICD-10 I10 Resting Blood Pressure:: 126/70 [place] [employer] Hypertension Guidelines Peak Exercise Blood Pressure:: 130/62 Outcomes/Goals: Able to verbalize/achieve optimal blood pressure <130/80, Incorporates diet changes & exercise for blood pressure control by DC and Other additional outcomes/goals Interventions/plan: Instruct on optimal blood pressure, hypertension & medications, Instruct on effects of sodium, alcohol, stress, exercise &hypertension and Other additional plan/interventions 30 day Reassessments:: Progressing Reassessment Notes & Comments:: Pt's BP's are within AHA normal limits on some days. Will continue to encourage weight loss and a low sodium diet. Will report to physician if needed. Tobacco Cessation Referral Smoking Cessation Referral:: No Individual Education/Counseling:: No Education Schedule Given:: Yes Psychosocial - 30-Day Assess Target Goals Target Goals Referral to Behavioral Health PS - Interventions: Yes: Attend Stress Management Classes Psychosocial - 60-Day Assess Target Goals Target Goals Referral to Behavioral Health PS - Interventions: Yes: Attend Stress Management Classes Psychosocial - 90-Day Assess VIsit Date of Eval: 09/28/24 Session #:: 27 History of previous Mental disease:: No Target Goals Target Goals Psychosocial Test Tool Used:: PHQ-9 Questionnaire phq-9 Severity See PHQ-9 Score: 6 Referral to Behavioral Health PS - Interventions: Yes: Attend Stress Management Classes Outcomes/Goals: See list Psychosocial Outcomes/Goals:: ID's personal stressors & 2 strategies to manage stress by discharge and Other Additional outcome/goals: Intervention/Plan: See List Interventions/Plan:: Assess stressors,coping strategies & signs of derpression on admission, Instruct/assist pt to develop coping & personal stress Mgt strategies, Refer to Behavioral Health if appropriate, Refer to Physician if appropriate, Instruct patient to recognize signs & symptoms of depression, Instruct patient to recog and Other additional plan/intervention 30-day Reassessments: 30 day Reassessments:: Met Reassessment Notes & Comments:: Pt denies any psychosocial issues at this time. Psychosocial - Final Assessmen Target Goals Target Goals Referral to Behavioral Health PS - Interventions: Yes: Attend Stress Management Classes Nutrition - 90-Day Assessment Program Goals Nutrition Program Goals Patient has diagnosis of Hyperlipidemia (ICD E78)?: Yes Visit Date of Eval: 09/28/24 Session #:: 27 Cholesterol/Lipids (Other Core Measures) Determine presence & major risk factors that modify LDL goal: Hypertension or hypertensive medication, Low HDL cholesterol <40 mg/dL*, Family history of premature CHD in Male < 55 years: female <65 yearsFa and Age men > 45 years; women >/= 55 years Outcomes/Goals: Pt IDs own risk factors & lifestyle modifications by Session 10, Verbalizes symptoms of angina & response by session 3., Pt independently manages and Other Additional Outcomes/Goals: Intervention/Plan: Advocate for lipid panel cholesterol medication if applicable, Instruct on personal lipid levels & lipid goals/NCEP guidelines, Instruct on cholesterol and Other additional plan/int 30-day Reassessments:: Met Reassessment Notes & Comments:: Pt taking meds as prescribed. Diabetes (Other Core Measures) Diabetes Type: Not Applicable Weight Mgt (Other Care) Height: 5 ft 10 in Weight:: 277 lb 8 oz BMI: 39.8 Diagnosis Overweight/Obesity BMI> 30% ICD-10 E66: Yes Diagnosis High BMI/Morbid Obesity BMI> 35% ICD-10 Z68: Yes Outcomes/Goals: Pt sets, maintains & shows weight loss goal & trend during rehab and Other additional outcomes/goals Intervention/Plan: Instruct on ideal BMI & set weight loss goal w/patient, Assist pt to ID & incorporate diet changes for weight loss by S9, Refer to Structured Weight Loss program as appropriate, Encourage goal of using 250-300dcal per session for weight loss and Other additional plan/interventions 30 day Reassessments:: Progressing Reassessment Notes & Comments:: Pt has attended nutrition classes. Pt has the tools to be able to continue losing weight. Healthy Eating Habits Will attend diet classes:: Yes Outcomes/Goals:: Consume diet rich in vegs,fruits,whole grain/high fiber,fish,lean meat, Limit sat/trans fats,cholesterol & added salts & sugars and Other additional outcome/goals: Intervention/Plan:: Assess current eating habits and Other Additional plan/interventions 30-day Reassessments:: Met Reassessment Notes & Comments:: Pt has attended nutrition class. Pt has also met with our dietitian 1 on 1. Education Gave educational materials for:: Signs & symptoms of hypoglycemia, Signs & symptoms of hyperglycemia, Relate diabetes to coronary artery disease and Healthy eating Nutrition - Final Assessment Weight Mgt (Other Care) Height: 5 ft 10 in Weight:: 277 lb 8 oz BMI: 39.8
[2024-09-28 09:04] VITALS: BP 126/70
[2024-09-28 09:20] VITALS: BP 126/70; BMI 39.8
== END 2024-10-08 23:59 ==
LOC: CR 14:15
PROVIDERS: PCP Family Medicine; Referring Provider Internal Medicine Cardiovascular Disease; Visit Provider Internal Medicine Cardiovascular Disease
DX: Z95.1 Presence of aortocoronary bypass graft (principal); Z86.79 Personal history of other diseases of the circulatory system; Z98.890 Other specified postprocedural states
CPT/HCPCS: 93798

== ENCOUNTER 2024-11-01 14:15 | Outpatient (RCR) | payer MEDICARE, OTHER, SELFPAY ==
[2024-09-28 09:20] VITALS: BMI 39.8
--- NOTE | 2024-10-27 08:52 | CR.ITP_ITS ---
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 Little interest or pleasure in doing things: Several days 2. Feeling down, depressed, or hopeless: Not at all 3. Trouble falling or staying asleep, or sleeping too much: Several days 4. Feeling tired or having little energy: More than half the days 5. Poor appetite or overeating: Several days 6. Feeling bad about yourself -- or that you are a failure or have let yourself or your family down: Not at all 7. Trouble concentrating on things, such as reading the newspaper or watching television: Several days 8. Moving or speaking so slowly that other people could have noticed. Or the opposite - being so fidgety or restless that you have been moving around a lot more than usual: Not at all 9. Thoughts that you would be better off , or of hurting yourself in some way: Not at all Total Score: 6 Self-Efficacy 6-Item Scale Discharge Assessment: We would like to know how confident you are in doing certain activities. Please select your confidence level for: Fatigue Select Number: 7 Physical Discomfort or Pain Select Number: 9 Emotional Distress Select Number: 10 Other Symptoms or Health Problems Select Number: 9 Different Tasks and Activities Select Number: 9 Medication Select Number: 8 Total Score:: 8 Nutrition Survey Nutrition Survey Discharge: Have you lost >10 lbs over the past 2 months without trying?: No Are you following a special diet at home for diabetes, low fat, or low salt?: No Are you interested in meeting with a dietitian for help understanding your diet?: Yes Do you eat less than 3 meals a day?: Yes Do you eat fatty meats (kemp, sausage, ribs, etc), fried foods, desserts, large amounts of salad dressings, margarine, butter, or cheese most days?: No Do you have food allergies? [Enter types in comment field]: No Do you eat in restaurants more than 3 times a week?: No Do you season food with salt, seasoning salt, or garlic salt?: No Do you used canned, boxed, frozen meals, or soups, seasoning packets?: No Total Score:: 2 Exercise - 30-day Assessment Physician Prescribed Exercise Modalities: SciFit Stepper and SciFit Lateral [place] Exercise - 60-day Assessment Physician Prescribed Exercise Modalities: SciFit Stepper and SciFit Lateral [place] Exercise - 90-day Assessment Physician Prescribed Exercise Modalities: SciFit Stepper and SciFit Lateral [place] Exercise - Final/Discharge Visit Date of Eval: 10/27/24 Session #:: 33 Physician Prescribed Exercise Modalities: 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 Frequency: 3x/week for 12 weeks [36 sessions] Intensity: 60-80% of age predicted maximum heart rate reserve Duration: 30 - 45 minutes METs - Progression 0.5-1.0 weekly:: 0.5-1.0 Current METSs:: 6.2 Target Heart Rate:: 96-118 Target RPE 12-16:: 12-16 Current RPE:: 11 Maximum Heart Rate:: 80 Resting Blood Pressure: 128/80 Maximum Exercise Blood Pressure: 140/74 EKG Type: NSR with occ PVC, rare pac Current Physical Activity or Exercising minutes: 30-45 Outcomes & Goals Goals:: Verbalizes understanding of THR, RPE & goal METS by session 6, Documents in home exercise log/reports 30 min aerobic 5 day/wk by DC and Demonstrates accurate pulse taking by DC Intervention & Plan Exercise Program Goals: Instruct on personal THR & RPE, Instruct on MET level & personal MET goal, Show patient to take own pulse /validate performance until accurate and Instruct on home exercise 30-day Reassessments 30 day Reassessments:: Met Physical Activity Home Exercise Physical Activity - Home Exercise: Safe Exercise, Warm-up, Self-monitoring, Cool-Down, Home Exercise > 30 min Daily and Sitting Time <3 hours/daily Outcomes & Goals Outcomes/Goals: Demonstrates correct Warm-up/exercise Cool-Down (S3) if = 2.5 METs, Verbalizes symptoms of exercise intolerance by Session 3 (S3) and Demonstrate safe equipment use (S3) & follows exercise prescrition (6) Intervention & Plan Plan/Intervention: Instruct warm-up & cool-down if exercising at > 2 METs, Instruct on symptoms of exercise intolerance & actions to take, Instruct & monitor on saf and Assess intial functional capacity & safety risk 30-day Reassessments 30 day Reassessments:: Met Nutrition - 30-Day Assessment Weight Mgt (Other Care) Height: 5 ft 10 in Weight:: 279 lb BMI: 40.0 BMI (Report if calculated above): 40 Nutrition - 60-Day Assessment Weight Mgt (Other Care) Height: 5 ft 10 in Weight:: 279 lb BMI: 40.0 BMI (Report if calculated above): 40 Core - Final Assessment Visit Date of Eval: 10/27/24 Session #:: 33 Medication Compliance Preventative Medication(s):: Statin/lipid and Beta ania H/O mental health issues: depression, anxiety, or addiction?: No Doesn?t believe in the benefits of treatment?: No Believes medications are unnecessary or harmful?: No Has a concern about medication side effects?: No Expresses concern over the cost of medications?: No Outcomes/Goals: Verbalizes medications,desired effect & common side effects @ DC, Pt self-reports following medication regimen and Keeps card in wallet w/medications listed by DC Interventions/plans: Instruct on medication effects & side effects, Review medication list w/patient every two weeks and Instruct importance of taking meds as ordered & assist problem solving 30-day Reassessments:: Met Tobacco Use Tobacco Use: Non-smoker Hypertension Hypertension Diagnosis:: Hypertension ICD-10 I10 Resting Blood Pressure:: 128/80 [place] [employer] Hypertension Guidelines Peak Exercise Blood Pressure:: 140/74 Outcomes/Goals: Able to verbalize/achieve optimal blood pressure <130/80 and Incorporates diet changes & exercise for blood pressure control by DC Interventions/plan: Instruct on optimal blood pressure, hypertension & medications and Instruct on effects of sodium, alcohol, stress, exercise &hypertension 30 day Reassessments:: Met Tobacco Cessation Referral Education Schedule Given:: Yes Core - 60-Day Assessment Hypertension Resting Blood Pressure:: 128/80 [place] [employer] Hypertension Guidelines Psychosocial - 30-Day Assess Referral to Behavioral Health PS - Interventions: Yes: Attend Stress Management Classes Psychosocial - 60-Day Assess Referral to Behavioral Health PS - Interventions: Yes: Attend Stress Management Classes Psychosocial - 90-Day Assess Referral to Behavioral Health PS - Interventions: Yes: Attend Stress Management Classes Psychosocial - Final Assessmen VIsit Date of Eval: 10/27/24 Session #:: 33 History of previous Mental disease:: No Psychosocial Test Tool Used:: PHQ-9 Questionnaire phq-9 Severity See PHQ-9 Score: 6 Referral to Behavioral Health PS - Interventions: Yes: Attend Stress Management Classes Outcomes/Goals: See list Psychosocial Outcomes/Goals:: ID's personal stressors & 2 strategies to manage stress by discharge Intervention/Plan: See List Interventions/Plan:: Assess stressors,coping strategies & signs of derpression on admission, Instruct/assist pt to develop coping & personal stress Mgt strategies, Refer to Behavioral Health if appropriate, Refer to Physician if appropriate and Instruct patient to recognize signs & symptoms of depression 30-day Reassessments: 30 day Reassessments:: Met Reassessment Notes & Comments:: PT denies any psychosocial needs at this time. Nutrition - 90-Day Assessment Weight Mgt (Other Care) Height: 5 ft 10 in Weight:: 279 lb BMI: 40.0 BMI (Report if calculated above): 40 Nutrition - Final Assessment Program Goals Patient has diagnosis of Hyperlipidemia (ICD E78)?: Yes Visit Date of Assessment:: 10/27/24 Session #:: 33 Cholesterol/Lipids (Other Core Measures) Triglycerides (mg/dL): 76 Total Cholesterol (mg/dL): 100 LDL Cholesterol (mg/dL): 47 HDL Cholesterol (mg/dL): 38 Lipid Medication: atorvastatin 80mg QHS Determine presence & major risk factors that modify LDL goal: Cigarette smoking, Hypertension or hypertensive medication, Low HDL cholesterol <40 mg/dL*, Family history of premature CHD in Male < 55 years: female <65 yearsFa and Age men > 45 years; women >/= 55 years Outcomes/Goals: Pt IDs own risk factors & lifestyle modifications by Session 10, Verbalizes symptoms of angina & response by session 3., Pt independently manages and Other Additional Outcomes/Goals: Intervention/Plan: Advocate for lipid panel cholesterol medication if applicable, Instruct on personal lipid levels & lipid goals/NCEP guidelines and Instruct on cholesterol 30-day Reassessments:: Met Diabetes (Other Core Measures) Diabetes Type: Not Applicable Weight Mgt (Other Care) Height: 5 ft 10 in Weight:: 279 lb BMI: 40.0 BMI (Report if calculated above): 40 Diagnosis Overweight/Obesity BMI> 30% ICD-10 E66: Yes Diagnosis High BMI/Morbid Obesity BMI> 35% ICD-10 Z68: Yes Outcomes/Goals: Pt sets, maintains & shows weight loss goal & trend during rehab Intervention/Plan: Instruct on ideal BMI & set weight loss goal w/patient, Assist pt to ID & incorporate diet changes for weight loss by S9, Refer to Structured Weight Loss program as appropriate and Encourage goal of using 250- 300dcal per session for weight loss 30 day Reassessments:: Progressing Reassessment Notes & Comments:: Pt encouraged to incorporate dietary and lifestyle changes to promote weight loss. Healthy Eating Habits Will attend diet classes:: Yes Outcomes/Goals:: Consume diet rich in vegs,fruits,whole grain/high fiber,fish,lean meat and Limit sat/trans fats,cholesterol & added salts & sugars Intervention/Plan:: Assess current eating habits 30-day Reassessments:: Met Education Gave educational materials for:: Signs & symptoms of hypoglycemia, Signs & symptoms of hyperglycemia, Relate diabetes to coronary artery disease and Healthy eating
[2024-10-27 09:01] VITALS: BP 128/80; BMI 40.0
== END 2024-11-07 23:59 ==
LOC: CR 14:15
PROVIDERS: PCP Family Medicine; Referring Provider Internal Medicine Cardiovascular Disease; Visit Provider Internal Medicine Cardiovascular Disease
DX: Z95.1 Presence of aortocoronary bypass graft (principal); Z98.890 Other specified postprocedural states; Z86.79 Personal history of other diseases of the circulatory system
CPT/HCPCS: 93798